=== PATIENT | female | born 1940 | race Caucasian/White ===

== ENCOUNTER 2016-10-20 11:37 | Outpatient (CLI) | payer MEDICARE, OTHER | END 2016-10-20 11:58 | LOC: D.MAMMO 11:37 | DX: Z12.31 Encounter for screening mammogram for malignant neoplasm of breast (principal) ==

== ENCOUNTER 2017-04-01 13:00 | Outpatient (CLI) | payer MEDICARE, OTHER ==
[~2017-04-01] VITALS: Ht 170.2 cm; Wt 63.6 kg
[2017-04-01 13:48] VITALS: BP 133/50; Ht 170.2 cm; Wt 63.6 kg
== END 2017-04-01 13:55 | disposition home or self-care (01) ==
LOC: D.OPS 13:00
DX: M81.0 Age-related osteoporosis without current pathological fracture (principal)

== ENCOUNTER 2017-10-15 19:50 | Emergency (ER) | payer MEDICARE, OTHER ==
[~2017-10-15] VITALS: Ht 170.2 cm; Wt 63.6 kg
[2017-10-15 19:56] VITALS: Ht 170.2 cm; Wt 63.6 kg
[2017-10-15] MEDS ORDERED: LISINOPRIL10 MG PO (20:02)
[2017-10-15] MEDS ORDERED: EPIPEN0.3 MG/0.3 IM (23:52)
[2017-10-15] MEDS ORDERED: MEDROL DOSE PACK4 MG PO (23:52)
[2017-10-16] MEDS ORDERED: DYAZIDE 37.5/251 CAP PO (01:06)
[2017-10-16 05:46] VITALS: BP 122/69
[2017-10-20] MEDS ORDERED: ASPIRIN81 MG PO (11:14)
[2017-10-20] MEDS ORDERED: PLAVIX75 MG PO (11:44)
== END 2017-10-16 05:48 | disposition home or self-care (01) ==
LOC: D.ER 19:50
DX: T78.3XXA Angioneurotic edema, initial encounter (principal)

== ENCOUNTER 2017-10-18 03:05 | Emergency (ER) | payer MEDICARE, OTHER ==
[~2017-10-18] VITALS: Ht 170.2 cm; Wt 61.4 kg
[~2017-10-18 03:05] MED LIST: DYAZIDE 37.5/251 CAP PO; EPIPEN0.3 MG/0.3 IM; LISINOPRIL10 MG PO; MEDROL DOSE PACK4 MG PO
[2017-10-18 03:14] VITALS: Ht 170.2 cm; Wt 61.4 kg
[2017-10-18 03:37] LABS: APPEARANCE CLEAR (CLEAR); BILIRUBIN NEGATIVE (NEGATIVE); COLOR YELLOW (YELLOW); GLUCOSE NEGATIVE (NEGATIVE); KETONE NEGATIVE (NEGATIVE); NITRITE NEGATIVE (NEGATIVE); PROTEIN NEGATIVE (NEGATIVE); UROBILINOGEN NORMAL (NORMAL)
[2017-10-18 03:49] LABS: BASOPHILS 0.5 % (0-2); EOSINOPHILS 4.5 % (0-7); HEMATOCRIT 33.8 % (36.0-48.0); HEMOGLOBIN 11.8 g/dL (12-16); IMMATURE GRANULOCYTES 0.2 % (0-5); MCH 32.1 pg (26.0-34.0); MCHC 34.9 g/dL (31.0-37.0); MCV 91.8 fL (80.0-100.0); MEAN PLATELET VOLUME 9.3 fL (7.4-10.4); MONOCYTES 10.5 % (2-11); NEUTROPHILS 58.3 % (40-80); PLATELET COUNT 208 10x3/uL (130-400); RBC 3.68 10x6/uL (4.00-5.40); RDW 12.4 % (11.5-14.5); WBC 5.6 10x3/uL (4.8-10.8)
[2017-10-18 04:01] LABS: ALBUMIN 3.3 g/dL (3.4-5.0); ALKALINE PHOSPHATASE 46 U/L (46-116); ALT (SGPT) 15 U/L (10-68); BILIRUBIN - TOTAL 0.49 mg/dL (0.2-1.3); CALC OSMOLALITY 257 mosm/kg (275-300); CALCIUM 8.8 mg/dL (8.5-10.1); CARBON DIOXIDE 26.9 mmol/L (21.0-32.0); CHLORIDE - SERUM 95 mmol/L (98-107); CREATININE - SERUM 0.7 mg/dL (0.6-1.3); GLUCOSE 99 mg/dL (74-106); POTASSIUM - SERUM 3.5 mmol/L (3.5-5.1); PROTEIN - SERUM 6.7 g/dL (6.4-8.2); SODIUM 129 mmol/L (136-145); UREA NITROGEN 10 mg/dL (7-18); eGFR NON AFRICAN AMERICAN 86 mL/min (90-120)
[2017-10-18 06:18] VITALS: BP 150/84
[2017-10-20] MEDS ORDERED: ASPIRIN81 MG PO (11:14)
[2017-10-20] MEDS ORDERED: PLAVIX75 MG PO (11:44)
== END 2017-10-18 06:10 | disposition home or self-care (01) ==
LOC: D.ER 03:05
PROVIDERS: Family Medicine
DX: R10.2 Pelvic and perineal pain (principal)

== ENCOUNTER 2017-10-22 09:19 | Emergency (ER) | payer MEDICARE, OTHER ==
[~2017-10-22] VITALS: Ht 170.2 cm; Wt 60.9 kg
[~2017-10-22 09:19] MED LIST changes: +ASPIRIN81 MG PO; +PLAVIX75 MG PO
[2017-10-22 09:35] VITALS: Ht 170.2 cm; Wt 60.9 kg
[2017-10-22 11:20] VITALS: BP 122/70
[2017-10-23] MEDS ORDERED: MIRALAX527 GM PO (03:14)
[2017-10-23] MEDS ORDERED: MILK OF MAGNESI30 ML PO (03:14)
== END 2017-10-22 11:26 | disposition home or self-care (01) ==
LOC: D.ER 09:19
DX: I10 Essential (primary) hypertension (principal); F41.9 Anxiety disorder, unspecified

== ENCOUNTER 2017-10-23 02:32 | Emergency (ER) | payer MEDICARE, OTHER ==
[~2017-10-23] VITALS: Ht 170.2 cm; Wt 60.9 kg
[2017-10-23 02:45] VITALS: Ht 170.2 cm; Wt 60.9 kg
[2017-10-23] MEDS ORDERED: MILK OF MAGNESI30 ML PO (03:14)
[2017-10-23] MEDS ORDERED: MIRALAX527 GM PO (03:14)
[2017-10-23 05:16] VITALS: BP 128/70
== END 2017-10-23 04:10 | disposition home or self-care (01) ==
LOC: D.ER 02:32
DX: R33.9 Retention of urine, unspecified (principal); K59.00 Constipation, unspecified

== ENCOUNTER 2017-10-27 13:57 | Emergency (ER) | payer MEDICARE, OTHER ==
[2017-10-23 02:45] VITALS: BMI 21.0
[~2017-10-27 13:57] MED LIST changes: +MILK OF MAGNESI30 ML PO; +MIRALAX527 GM PO
== END 2017-10-27 14:06 | disposition home or self-care (01) ==
LOC: OBSVTIME → D.ER 13:57 → D.EDHOLD 21:02 → OBSVTIME 21:02
DX: E87.1 Hypo-osmolality and hyponatremia (principal); R10.9 Unspecified abdominal pain

== ENCOUNTER 2017-10-27 14:58 | Inpatient (IN) | payer MEDICARE, OTHER ==
[~2017-10-27] VITALS: Ht 170.2 cm; Wt 66.4 kg
[2017-10-27 16:01] LABS: ALBUMIN 3.8 g/dL (3.4-5.0); ALKALINE PHOSPHATASE 55 U/L (46-116); ALT (SGPT) 24 U/L (10-68); BILIRUBIN - TOTAL 0.55 mg/dL (0.2-1.3); CALC OSMOLALITY 246 mosm/kg (275-300); CALCIUM 9.3 mg/dL (8.5-10.1); CARBON DIOXIDE 28.6 mmol/L (21.0-32.0); CHLORIDE - SERUM 88 mmol/L (98-107); CREATININE - SERUM 0.7 mg/dL (0.6-1.3); GLUCOSE 115 mg/dL (74-106); POTASSIUM - SERUM 4.3 mmol/L (3.5-5.1); PROTEIN - SERUM 7.6 g/dL (6.4-8.2); SODIUM 122 mmol/L (136-145); UREA NITROGEN 13 mg/dL (7-18); eGFR NON AFRICAN AMERICAN 86 mL/min (90-120)
[2017-10-27 16:02] LABS: BASOPHILS 0.5 % (0-2); EOSINOPHILS 1.7 % (0-7); HEMOGLOBIN 12.5 g/dL (12-16); IMMATURE GRANULOCYTES 0.2 % (0-5); LYMPHOCYTES 15.6 % (15-50); MCH 31.6 pg (26.0-34.0); MCHC 34.7 g/dL (31.0-37.0); MCV 91.1 fL (80.0-100.0); MEAN PLATELET VOLUME 9.5 fL (7.4-10.4); MONOCYTES 8.7 % (2-11); NEUTROPHILS 73.3 % (40-80); PLATELET COUNT 252 10x3/uL (130-400); RBC 3.95 10x6/uL (4.00-5.40); RDW 12.4 % (11.5-14.5); WBC 6.3 10x3/uL (4.8-10.8)
[2017-10-27 20:00] VITALS: BP 146/60
[2017-10-27 20:12] LABS: BASOPHILS 0.5 % (0-2); EOSINOPHILS 1.3 % (0-7); HEMOGLOBIN 11.9 g/dL (12-16); IMMATURE GRANULOCYTES 0.3 % (0-5); LYMPHOCYTES 14.8 % (15-50); MCH 31.7 pg (26.0-34.0); MCV 90.7 fL (80.0-100.0); MEAN PLATELET VOLUME 9.6 fL (7.4-10.4); MONOCYTES 7.7 % (2-11); NEUTROPHILS 75.4 % (40-80); PLATELET COUNT 212 10x3/uL (130-400); RBC 3.75 10x6/uL (4.00-5.40); RDW 12.3 % (11.5-14.5); WBC 6.2 10x3/uL (4.8-10.8)
[2017-10-27 20:38] LABS: ALBUMIN 3.5 g/dL (3.4-5.0); ALKALINE PHOSPHATASE 52 U/L (46-116); ALT (SGPT) 21 U/L (10-68); BILIRUBIN - TOTAL 0.52 mg/dL (0.2-1.3); CALC OSMOLALITY 254 mosm/kg (275-300); CALCIUM 8.3 mg/dL (8.5-10.1); CARBON DIOXIDE 25.7 mmol/L (21.0-32.0); CHLORIDE - SERUM 93 mmol/L (98-107); CREATININE - SERUM 0.7 mg/dL (0.6-1.3); GLUCOSE 114 mg/dL (74-106); PROTEIN - SERUM 6.9 g/dL (6.4-8.2); SODIUM 127 mmol/L (136-145); UREA NITROGEN 10 mg/dL (7-18); eGFR NON AFRICAN AMERICAN 86 mL/min (90-120)
[2017-10-27 20:39] LABS: POTASSIUM - SERUM 3.6 mmol/L (3.5-5.1)
[2017-10-27 20:41] LABS: TROPONIN-I < 0.017 ng/mL (0.000-0.060)
[2017-10-27 22:00] VITALS: BP 134/62
[2017-10-28] VITALS (7 sets, daily range): BP systolic 105–146; BP diastolic 42–84; Ht 170.2 cm; Wt 66.4 kg
[2017-10-28 05:11] LABS: BASOPHILS 0.5 % (0-2); EOSINOPHILS 2.7 % (0-7); HEMATOCRIT 31.6 % (36.0-48.0); HEMOGLOBIN 10.9 g/dL (12-16); IMMATURE GRANULOCYTES 0.2 % (0-5); LYMPHOCYTES 18.9 % (15-50); MCH 31.4 pg (26.0-34.0); MCHC 34.5 g/dL (31.0-37.0); MCV 91.1 fL (80.0-100.0); MEAN PLATELET VOLUME 9.3 fL (7.4-10.4); MONOCYTES 10.6 % (2-11); NEUTROPHILS 67.1 % (40-80); PLATELET COUNT 211 10x3/uL (130-400); RBC 3.47 10x6/uL (4.00-5.40); RDW 12.5 % (11.5-14.5); WBC 5.5 10x3/uL (4.8-10.8)
[2017-10-28 05:55] LABS: CALC OSMOLALITY 265 mosm/kg (275-300); CALCIUM 8.2 mg/dL (8.5-10.1); CARBON DIOXIDE 24.2 mmol/L (21.0-32.0); CHLORIDE - SERUM 103 mmol/L (98-107); CREATININE - SERUM 0.6 mg/dL (0.6-1.3); GLUCOSE 104 mg/dL (74-106); POTASSIUM - SERUM 4.1 mmol/L (3.5-5.1); SODIUM 134 mmol/L (136-145); eGFR NON AFRICAN AMERICAN > 90 mL/min (90-120)
[2017-10-28 05:56] LABS: UREA NITROGEN 7 mg/dL (7-18)
[2017-10-29 00:11] VITALS: BP 115/38
[2017-10-29 04:36] VITALS: BP 123/56
[2017-10-29 06:24] LABS: BASOPHILS 0.7 % (0-2); EOSINOPHILS 2.2 % (0-7); HEMATOCRIT 30.7 % (36.0-48.0); HEMOGLOBIN 10.2 g/dL (12-16); IMMATURE GRANULOCYTES 0.2 % (0-5); LYMPHOCYTES 18.7 % (15-50); MCHC 33.2 g/dL (31.0-37.0); MEAN PLATELET VOLUME 9.9 fL (7.4-10.4); MONOCYTES 12.3 % (2-11); NEUTROPHILS 65.9 % (40-80); PLATELET COUNT 213 10x3/uL (130-400); RBC 3.29 10x6/uL (4.00-5.40); RDW 12.6 % (11.5-14.5)
[2017-10-29 06:50] LABS: MCV 93.3 fL (80.0-100.0)
[2017-10-29 06:51] LABS: ALBUMIN 2.7 g/dL (3.4-5.0); ALKALINE PHOSPHATASE 43 U/L (46-116); ALT (SGPT) 24 U/L (10-68); BILIRUBIN - TOTAL 0.21 mg/dL (0.2-1.3); CALC OSMOLALITY 276 mosm/kg (275-300); CARBON DIOXIDE 23.3 mmol/L (21.0-32.0); CHLORIDE - SERUM 108 mmol/L (98-107); CREATININE - SERUM 0.6 mg/dL (0.6-1.3); GLUCOSE 94 mg/dL (74-106); POTASSIUM - SERUM 4.2 mmol/L (3.5-5.1); PROTEIN - SERUM 5.6 g/dL (6.4-8.2); SODIUM 139 mmol/L (136-145); eGFR NON AFRICAN AMERICAN > 90 mL/min (90-120)
[2017-10-29 06:55] LABS: UREA NITROGEN 11 mg/dL (7-18)
[2017-10-29 08:27] VITALS: BP 141/51
[2017-10-29 12:00] VITALS: BP 123/83
[2017-10-29] MEDS ORDERED: PROTONIX40 MG PO (13:40)
== END 2017-10-29 16:06 | disposition home or self-care (01) | DRG 641 ==
LOC: D.ER 14:58 → D.EDHOLD 21:02 → OBSVTIME 21:02 → D.M2 22:08
PROVIDERS: Family Medicine
DX: E87.1 Hypo-osmolality and hyponatremia (principal); I10 Essential (primary) hypertension; F41.9 Anxiety disorder, unspecified; I25.10 Atherosclerotic heart disease of native coronary artery without angina pectoris; K59.00 Constipation, unspecified; R33.9 Retention of urine, unspecified; Z95.5 Presence of coronary angioplasty implant and graft

== ENCOUNTER → 2017-11-11 16:54 | Outpatient (CLI) | payer MEDICARE, OTHER ==
[2017-10-28 12:42] VITALS: BMI 20.6
[~2017-11-11 16:54] MED LIST changes: +BUSPAR5 MG PO; +METAMUCIL1042 GM PO; +PROTONIX40 MG PO
== END | disposition home or self-care (01) ==
LOC: D.LABREF 16:54
DX: R33.8 Other retention of urine (principal); N18.6 End stage renal disease; N81.11 Cystocele, midline

== ENCOUNTER → 2017-11-18 17:55 | Outpatient (CLI) | payer MEDICARE, OTHER ==
[2017-10-28 12:42] VITALS: BMI 20.6
[2017-11-18 18:58] LABS: CALC OSMOLALITY 262 mosm/kg (275-300); CALCIUM 8.9 mg/dL (8.5-10.1); CHLORIDE - SERUM 96 mmol/L (98-107); CREATININE - SERUM 0.7 mg/dL (0.6-1.3); GLUCOSE 86 mg/dL (74-106); SODIUM 131 mmol/L (136-145); UREA NITROGEN 16 mg/dL (7-18); eGFR NON AFRICAN AMERICAN 86 mL/min (90-120)
== END | disposition home or self-care (01) ==
LOC: D.LABREF 17:55
PROVIDERS: Emergency Medicine
DX: R33.9 Retention of urine, unspecified (principal); E87.1 Hypo-osmolality and hyponatremia

== ENCOUNTER → 2017-11-22 18:18 | Outpatient (CLI) | payer MEDICARE, OTHER ==
[2017-10-28 12:42] VITALS: BMI 20.6
[2017-11-22 19:58] LABS: APPEARANCE CLEAR (CLEAR); BILIRUBIN NEGATIVE (NEGATIVE); COLOR YELLOW (YELLOW); GLUCOSE NEGATIVE (NEGATIVE); KETONE NEGATIVE (NEGATIVE); NITRITE NEGATIVE (NEGATIVE); PROTEIN NEGATIVE (NEGATIVE); UROBILINOGEN NORMAL (NORMAL)
[2017-11-22 19:59] LABS: BACTERIA FEW /hpf (NONE SEEN); EPITHELIAL CELLS OCC /hpf (0-5); RED CELLS - URINE 0-5 /hpf (0-5); WHITE CELLS - URINE 0-5 /hpf (0-5)
== END | disposition home or self-care (01) ==
LOC: D.LABREF 18:18
PROVIDERS: Urology
DX: R33.9 Retention of urine, unspecified (principal); R30.0 Dysuria

== ENCOUNTER 2017-11-24 19:12 | Emergency (ER) | payer MEDICARE, OTHER ==
[~2017-11-24] VITALS: Ht 170.2 cm; Wt 61.8 kg
[~2017-11-24 19:12] MED LIST changes: -BUSPAR5 MG PO; -METAMUCIL1042 GM PO
[2017-11-24 19:20] VITALS: Ht 170.2 cm; Wt 61.8 kg
[2017-11-24] MEDS ORDERED: BUSPAR5 MG PO (19:23)
[2017-11-24] MEDS ORDERED: METAMUCIL1042 GM PO (19:24)
[2017-11-24 19:46] LABS: BASOPHILS 0.3 % (0-2); EOSINOPHILS 0.9 % (0-7); HEMATOCRIT 33.5 % (36.0-48.0); HEMOGLOBIN 11.7 g/dL (12-16); IMMATURE GRANULOCYTES 0.2 % (0-5); LYMPHOCYTES 23.2 % (15-50); MCH 32.1 pg (26.0-34.0); MCHC 34.9 g/dL (31.0-37.0); MCV 91.8 fL (80.0-100.0); MEAN PLATELET VOLUME 9.4 fL (7.4-10.4); MONOCYTES 7.6 % (2-11); NEUTROPHILS 67.8 % (40-80); PLATELET COUNT 218 10x3/uL (130-400); RBC 3.65 10x6/uL (4.00-5.40); RDW 12.8 % (11.5-14.5); WBC 5.8 10x3/uL (4.8-10.8)
[2017-11-24 19:51] LABS: APPEARANCE CLEAR (CLEAR); BILIRUBIN NEGATIVE (NEGATIVE); COLOR YELLOW (YELLOW); GLUCOSE NEGATIVE (NEGATIVE); KETONE NEGATIVE (NEGATIVE); NITRITE NEGATIVE (NEGATIVE); PROTEIN NEGATIVE (NEGATIVE); SPECIFIC GRAVITY 1.005 (1.005-1.020); UROBILINOGEN NORMAL (NORMAL)
[2017-11-24 20:23] LABS: ALBUMIN 3.6 g/dL (3.4-5.0); ALKALINE PHOSPHATASE 50 U/L (46-116); ALT (SGPT) 27 U/L (10-68); BILIRUBIN - TOTAL 0.23 mg/dL (0.2-1.3); CALC OSMOLALITY 263 mosm/kg (275-300); CALCIUM 9.5 mg/dL (8.5-10.1); CARBON DIOXIDE 25.4 mmol/L (21.0-32.0); CHLORIDE - SERUM 97 mmol/L (98-107); CREATININE - SERUM 0.6 mg/dL (0.6-1.3); GLUCOSE 105 mg/dL (74-106); POTASSIUM - SERUM 3.4 mmol/L (3.5-5.1); PROTEIN - SERUM 6.9 g/dL (6.4-8.2); SODIUM 132 mmol/L (136-145); UREA NITROGEN 9 mg/dL (7-18); eGFR NON AFRICAN AMERICAN > 90 mL/min (90-120)
[2017-11-24 21:45] VITALS: BP 150/65
== END 2017-11-24 21:46 | disposition home or self-care (01) ==
LOC: D.ER 19:12
PROVIDERS: Emergency Medicine
DX: R53.1 Weakness (principal); E87.6 Hypokalemia; R25.2 Cramp and spasm; I10 Essential (primary) hypertension; E11.9 Type 2 diabetes mellitus without complications; Z86.79 Personal history of other diseases of the circulatory system; K21.9 Gastro-esophageal reflux disease without esophagitis

== ENCOUNTER → 2017-12-30 13:02 | Outpatient (CLI) | payer MEDICARE, OTHER ==
[~2017-12-30] VITALS: Ht 170.2 cm; Wt 61.4 kg
[~2017-12-30 13:02] MED LIST changes: +BUSPAR5 MG PO; +METAMUCIL1042 GM PO
[2017-12-30 13:40] VITALS: BP 123/56; Ht 170.2 cm; Wt 61.4 kg
== END | disposition home or self-care (01) ==
LOC: D.OPS 12-29 10:00
DX: M81.0 Age-related osteoporosis without current pathological fracture (principal); Z01.812 Encounter for preprocedural laboratory examination

== ENCOUNTER 2018-03-03 07:05 | Day surgery (SDC) | payer MEDICARE, OTHER ==
[2018-03-01 14:14] LABS: HEMATOCRIT 34.1 % (36.0-48.0); HEMOGLOBIN 11.4 g/dL (12-16); MCH 31.5 pg (26.0-34.0); MCHC 33.4 g/dL (31.0-37.0); MCV 94.2 fL (80.0-100.0); MEAN PLATELET VOLUME 9.4 fL (7.4-10.4); RBC 3.62 10x6/uL (4.00-5.40); WBC 5.7 10x3/uL (4.8-10.8)
[2018-03-01 14:28] LABS: ANION GAP 12.2 mmol/L (8-16); CALCIUM 8.5 mg/dL (8.5-10.1); CREATININE - SERUM 0.8 mg/dL (0.6-1.3); POTASSIUM - SERUM 4.2 mmol/L (3.5-5.1)
[~2018-03-03] VITALS: Ht 170.2 cm; Wt 61.7 kg
[~2018-03-03 07:05] MED LIST changes: +BACTRIM DS1 TAB PO; +MIRALAX17 GM PO; +ZANTAC300 MG PO
[2018-03-03 08:26] VITALS: BP 125/60; Ht 170.2 cm; Wt 61.7 kg
[2018-03-03 09:00] LABS: APPEARANCE CLEAR (CLEAR); BACTERIA FEW /hpf (NONE SEEN); BILIRUBIN NEGATIVE (NEGATIVE); COLOR STRAW (YELLOW); EPITHELIAL CELLS OCC /hpf (0-5); GLUCOSE NEGATIVE (NEGATIVE); KETONE NEGATIVE (NEGATIVE); NITRITE NEGATIVE (NEGATIVE); PROTEIN NEGATIVE (NEGATIVE); RED CELLS - URINE OCC /hpf (0-5); UROBILINOGEN NORMAL (NORMAL)
[2018-04-04] MEDS ORDERED: CIPRO250 MG PO (10:22)
== END 2018-03-03 10:30 | disposition home or self-care (01) ==
LOC: D.OPS 07:05 → D.PAN 09:35 → D.OPS 10:00
PROVIDERS: Anesthesiology; Urology
DX: Z53.09 Procedure and treatment not carried out because of other contraindication (principal); Z01.812 Encounter for preprocedural laboratory examination

== ENCOUNTER → 2018-03-09 15:05 | Outpatient (CLI) | payer MEDICARE, OTHER ==
[2018-03-03 08:26] VITALS: BMI 21.3
[~2018-03-09 15:05] MED LIST changes: +CIPRO250 MG PO
[2018-03-09 16:05] LABS: APPEARANCE CLEAR (CLEAR); BILIRUBIN NEGATIVE (NEGATIVE); COLOR YELLOW (YELLOW); GLUCOSE NEGATIVE (NEGATIVE); KETONE NEGATIVE (NEGATIVE); NITRITE NEGATIVE (NEGATIVE); PROTEIN NEGATIVE (NEGATIVE); UROBILINOGEN NORMAL (NORMAL)
== END | disposition home or self-care (01) ==
LOC: D.LABREF 15:05
PROVIDERS: Urology
DX: R33.8 Other retention of urine (principal); Z46.6 Encounter for fitting and adjustment of urinary device; Z87.440 Personal history of urinary (tract) infections

== ENCOUNTER → 2018-03-28 18:40 | Outpatient (CLI) | payer MEDICARE, OTHER ==
[2018-03-03 08:26] VITALS: BMI 21.3
[~2018-03-28 18:40] MED LIST changes: +NORCO 7.5/325 T1 TA1 PO
[2018-03-28 20:45] LABS: APPEARANCE CLEAR (CLEAR); BILIRUBIN NEGATIVE (NEGATIVE); COLOR STRAW (YELLOW); GLUCOSE NEGATIVE (NEGATIVE); KETONE NEGATIVE (NEGATIVE); NITRITE NEGATIVE (NEGATIVE); PROTEIN NEGATIVE (NEGATIVE); SPECIFIC GRAVITY 1.005 (1.005-1.020); UROBILINOGEN NORMAL (NORMAL)
[2018-03-28 20:46] LABS: RED CELLS - URINE 0-5 /hpf (0-5)
[2018-03-28 20:47] LABS: BACTERIA FEW /hpf (NONE SEEN); EPITHELIAL CELLS 0-5 /hpf (0-5)
== END | disposition home or self-care (01) ==
LOC: D.LABREF 18:40
PROVIDERS: Urology
DX: N39.0 Urinary tract infection, site not specified (principal)

== ENCOUNTER 2018-04-05 06:00 | Day surgery (SDC) | payer MEDICARE, OTHER ==
[2018-04-04 10:09] LABS: HEMOGLOBIN 11.9 g/dL (12-16); MCH 31.3 pg (26.0-34.0); MCHC 33.1 g/dL (31.0-37.0); MCV 94.7 fL (80.0-100.0); MEAN PLATELET VOLUME 9.7 fL (7.4-10.4); RBC 3.8 10x6/uL (4.00-5.40); WBC 4.4 10x3/uL (4.8-10.8)
[2018-04-05 09:07] LABS: CALC OSMOLALITY 268 mosm/kg (275-300); CALCIUM 8.6 mg/dL (8.5-10.1); CARBON DIOXIDE 24.4 mmol/L (21.0-32.0); CHLORIDE - SERUM 100 mmol/L (98-107); CREATININE - SERUM 0.5 mg/dL (0.6-1.3); GLUCOSE 102 mg/dL (74-106); POTASSIUM - SERUM 3.8 mmol/L (3.5-5.1); SODIUM 135 mmol/L (136-145); UREA NITROGEN 9 mg/dL (7-18); eGFR NON AFRICAN AMERICAN > 90 mL/min (90-120)
[2018-04-06 10:06] LABS: CALCIUM 7.7 mg/dL (8.5-10.1); CARBON DIOXIDE 26.1 mmol/L (21.0-32.0)
[2018-04-06 10:13] LABS: ANION GAP 11.9 mmol/L (8-16); CREATININE - SERUM 0.9 mg/dL (0.6-1.3)
[2018-04-07 09:45] LABS: CARBON DIOXIDE 24.6 mmol/L (21.0-32.0); CHLORIDE - SERUM 103 mmol/L (98-107); GLUCOSE 129 mg/dL (74-106); POTASSIUM - SERUM 3.4 mmol/L (3.5-5.1); SODIUM 138 mmol/L (136-145)
[2018-04-07 09:48] LABS: CALC OSMOLALITY 274 mosm/kg (275-300); CREATININE - SERUM 0.6 mg/dL (0.6-1.3); UREA NITROGEN 5 mg/dL (7-18); eGFR NON AFRICAN AMERICAN > 90 mL/min (90-120)
== END 2018-04-07 16:56 | disposition home or self-care (01) ==
LOC: D.OPS 06:00 → D.MS 17:31 → D.SDCHOLD 04-06 09:52 → D.MS 04-06 09:55
PROVIDERS: Anesthesiology; Urology
DX: N81.10 Cystocele, unspecified (principal); N81.6 Rectocele; R33.9 Retention of urine, unspecified; E87.1 Hypo-osmolality and hyponatremia

== ENCOUNTER 2018-04-08 16:21 | Emergency (ER) | payer MEDICARE, OTHER ==
[~2018-04-08] VITALS: Ht 170.2 cm; Wt 61.4 kg
[2018-04-08 16:23] VITALS: Ht 170.2 cm; Wt 61.4 kg
[2018-04-08 17:40] LABS: CALC OSMOLALITY 253 mosm/kg (275-300); CALCIUM 8.6 mg/dL (8.5-10.1); CARBON DIOXIDE 28.8 mmol/L (21.0-32.0); CHLORIDE - SERUM 95 mmol/L (98-107); CREATININE - SERUM 0.5 mg/dL (0.6-1.3); GLUCOSE 105 mg/dL (74-106); SODIUM 127 mmol/L (136-145); eGFR NON AFRICAN AMERICAN > 90 mL/min (90-120)
[2018-04-08 17:55] LABS: APPEARANCE CLEAR (CLEAR); BILIRUBIN NEGATIVE (NEGATIVE); COLOR YELLOW (YELLOW); GLUCOSE NEGATIVE (NEGATIVE); KETONE NEGATIVE (NEGATIVE); NITRITE NEGATIVE (NEGATIVE); PROTEIN NEGATIVE (NEGATIVE); UROBILINOGEN NORMAL (NORMAL)
[2018-04-08 17:56] LABS: BACTERIA FEW /hpf (NONE SEEN); RED CELLS - URINE OCC /hpf (0-5); WHITE CELLS - URINE OCC /hpf (0-5)
[2018-04-08 17:59] LABS: UREA NITROGEN 11 mg/dL (7-18)
[2018-04-08] MEDS ORDERED: MACROBID100 MG PO (18:51)
[2018-04-08 19:30] VITALS: BP 138/70
== END 2018-04-08 19:30 | disposition home or self-care (01) ==
LOC: D.ER 16:21
PROVIDERS: Emergency Medicine
DX: E86.0 Dehydration (principal); K59.00 Constipation, unspecified; N39.0 Urinary tract infection, site not specified

== ENCOUNTER 2018-04-20 17:23 | Inpatient (IN) | payer MEDICARE, OTHER ==
[~2018-04-20] VITALS: Ht 170.2 cm; Wt 60.9 kg
--- NOTE | ~2018-04-20 | MORECARE ---
CASE MANAGEMENT DISCHARGE SUMMARY PATIENT: AMANDO MURPHY UNIT: [id number] ADM DATE: 04/21/18 AGE: 77 : 40 SEX: F ROOM/BED: D.7543 AUTHOR: JAMES MADRID PHYSICIAN: REFERRING PHYSICIAN: DUSTY AVILA MD DATE OF SERVICE: 04/22/18 Discharge Plan Patient Name: AMANDO MURPHY Facility: [facility]:[place] : 1940 Planned Disposition: Home with Home Health Anticipated Discharge Date: 04/22/18 Discharge Date: Expected LOS: 1 Initial Reviewer: [email or web address] Initial Review Date: 04/22/2018 Generated: 04/22/18 3:51 pm Comments DCP- Discharge Planning Updated by [email or web address]: Moriah Mohamud on 04/22/18 1:[address] Patient Name: AMANDO MURPHY Admission Status: ER Accout number: [id number] Admission Date: 04-21-2018 : 1940 Admission Diagnosis:OTHER CONSTIPATION Attending: DUSTY AVILA Current LOS: 1 Anticipated DC Date: 04-22-2018 Planned Disposition: Home with Home Health Primary Insurance: MEDICARE A & B Discharge Planning Comments: CM MET WITH PATIENT ABOUT DC PLANNING/NEEDS. STATES COUSIN IS COMING TO CARPET LOOM [employer] AND TAKE HOME. [facility] CALLED AND PATIENT WILL RESUME CARE WITH THEM. PATIENT ALSO HAS A CAREGIVER THROUGH [facility], PHONE NUMBER [phone]. CM WILL FOLLOW AND ASSIST NEEDED WITH DC PLANNING/NEEDS. Human Resource Statistician: Moriah Mohamud DCPIA - Discharge Planning Initial Assessment Updated by [id number]: Moriah Mohamud on 04/22/18 2:49 pm * Is the patient Alert and Oriented? Yes * PCP ZAVALA * Pharmacy [facility] [address] * Preadmission Environment Home Alone * ADLs Independent * Equipment None * Community resources currently utilized Home Health * Please name any agencies selected above. [facility] * Additional services required to return to the preadmission environment? No * Can the patient safely return to the preadmission environment? Yes * Has this patient been hospitalized within the prior 30 days at any hospital? No Patient Name: AMANDO MURPHY Page 35516 at 1452 All edits/amendments must be made on the electronic document DICTATION DATE: 04/22/181450 SIDE SEAM ENVELOPE MACHINE OPERATOR: FAYE 04/22/181450 RPT#: [id number] DC DATE: STATUS: ADM IN [facility] [address] [place] [address] END OF REPORT
--- NOTE | ~2018-04-20 | MORECARE ---
CASE MANAGEMENT DISCHARGE SUMMARY PATIENT: AMANDO MURPHY UNIT: [id number] ADM DATE: 04/21/18 AGE: 77 : 40 SEX: F ROOM/BED: D.2874 AUTHOR: JAMES MADRID PHYSICIAN: REFERRING PHYSICIAN: DUSTY AVILA MD DATE OF SERVICE: 04/22/18 Discharge Plan Patient Name: AMANDO MURPHY Facility: [facility]:[place] : 1940 Planned Disposition: Home with Home Health Anticipated Discharge Date: 04/22/18 Discharge Date: Expected LOS: 1 Initial Reviewer: [email or web address] Initial Review Date: 04/22/2018 Generated: 04/22/18 4:00 pm Comments DCP- Discharge Planning Updated by [email or web address]: Moriah Mohaumd on 04/22/18 1:[address] Patient Name: AMANDO MURPHY Admission Status: ER Accout number: [id number] Admission Date: 04-21-2018 : 1940 Admission Diagnosis:OTHER CONSTIPATION Attending: DUSTY AVILA Current LOS: 1 Anticipated DC Date: 04-22-2018 Planned Disposition: Home with Home Health Primary Insurance: MEDICARE A & B Discharge Planning Comments: CM MET WITH PATIENT ABOUT DC PLANNING/NEEDS. STATES COUSIN IS COMING TO [employer] DEPUTY CLERK AND TAKE HOME. [facility] CALLED AND PATIENT WILL RESUME CARE WITH THEM. PATIENT ALSO HAS A CAREGIVER THROUGH [facility], PHONE NUMBER [phone]. CM WILL FOLLOW AND ASSIST NEEDED WITH DC PLANNING/NEEDS. Distribution Supervisor: Moriah Mohamud DCPIA - Discharge Planning Initial Assessment Updated by [email or web address]: Moriah Mohamud on 04/22/18 2:49 pm * Is the patient Alert and Oriented? Yes * PCP ZAVALA * Pharmacy [facility] [address] * Preadmission Environment Home Alone * ADLs Independent * Equipment None * Community resources currently utilized Home Health * Please name any agencies selected above. [facility] * Additional services required to return to the preadmission environment? No * Can the patient safely return to the preadmission environment? Yes * Has this patient been hospitalized within the prior 30 days at any hospital? No Patient Name: AMANDO MURPHY Page [phone] at 1500 All edits/amendments must be made on the electronic document DICTATION DATE: 04/22/181458 BRANCH OPERATIONS MANAGER: FAYE 04/22/181458 RPT#: [id number] DC DATE: STATUS: ADM IN [facility] [address] [place] [address] END OF REPORT
--- NOTE | ~2018-04-20 | MORECARE ---
CASE MANAGEMENT DISCHARGE SUMMARY PATIENT: AMANDO MURPHY UNIT: [id number] ADM DATE: 04/21/18 AGE: 77 : 40 SEX: F ROOM/BED: D.3299 AUTHOR: JULIUS,DOC PHYSICIAN: REFERRING PHYSICIAN: DUSTY AVILA MD DATE OF SERVICE: 04/25/18 Discharge Plan Patient Name: AMANDO MURHPY Facility: [facility]:[place] : 1940 Planned Disposition: Home with Home Health Anticipated Discharge Date: 04/22/18 Discharge Date: 04/22/2018 Expected LOS: 1 Initial Reviewer: [email or web address] Initial Review Date: 04/22/2018 Generated: 04/25/18 12:50 pm Comments DCP- Discharge Planning Updated by [email or web address]: Moriah Mohamud on 04/22/18 1:[address] Patient Name: AMANDO MURPHY Admission Status: ER Accout number: [id number] Admission Date: 04-21-2018 : 1940 Admission Diagnosis:OTHER CONSTIPATION Attending: DUSTY AVILA Current LOS: 1 Anticipated DC Date: 04-22-2018 Planned Disposition: Home with Home Health Primary Insurance: MEDICARE A & B Discharge Planning Comments: CM MET WITH PATIENT ABOUT DC PLANNING/NEEDS. STATES COUSIN IS COMING TO EXEC. CREATIVE DIRECTOR AND TAKE HOME. [facility] CALLED AND PATIENT WILL RESUME CARE WITH THEM. PATIENT ALSO HAS A CAREGIVER THROUGH [facility], PHONE NUMBER [phone]. CM WILL FOLLOW AND ASSIST NEEDED WITH DC PLANNING/NEEDS. Machine Assembler: Moriah Mohamud DCPIA - Discharge Planning Initial Assessment Updated by [email or web address]: Moriah Mohamud on 04/22/18 2:49 pm * Is the patient Alert and Oriented? Yes * PCP ZAVALA * Pharmacy [facility] [address] * Preadmission Environment Home Alone * ADLs Independent * Equipment None * Community resources currently utilized Home Health * Please name any agencies selected above. [facility] * Additional services required to return to the preadmission environment? No * Can the patient safely return to the preadmission environment? Yes * Has this patient been hospitalized within the prior 30 days at any hospital? No Last DP export: 04/22/18 2:09 Patient Name: AMANDO MURPHY Page [phone] at 1150 All edits/amendments must be made on the electronic document DICTATION DATE: 04/25/181148 ELECTRONIC PAGINATION SYSTEM OPERATOR: FAYE 04/25/181148 RPT#: [id number] DC DATE:04/22/18 STATUS: DIS IN [facility] [address] [place] [address] END OF REPORT
--- NOTE | ~2018-04-20 | MORECARE ---
CASE MANAGEMENT DISCHARGE SUMMARY PATIENT: AMANDO MURPHY UNIT: [id number] ADM DATE: 04/21/18 AGE: 77 : 40 SEX: F ROOM/BED: D.5970 AUTHOR: JULIUS,DOC PHYSICIAN: REFERRING PHYSICIAN: DUSTY AVILA MD DATE OF SERVICE: 04/22/18 Discharge Plan Patient Name: AMANDO MURPHY Facility: [facility]:[place] : 1940 Planned Disposition: Home with Home Health Anticipated Discharge Date: 04/22/18 Discharge Date: Expected LOS: 1 Initial Reviewer: [email or web address] Initial Review Date: 04/22/2018 Generated: 04/22/18 4:08 pm Comments DCP- Discharge Planning Updated by [email or web address]: Moriah Mohamud on 04/22/18 1:[address] Patient Name: AMANDO MURPHY Admission Status: ER Accout number: [id number] Admission Date: 04-21-2018 : 1940 Admission Diagnosis:OTHER CONSTIPATION Attending: DUSTY AVILA Current LOS: 1 Anticipated DC Date: 04-22-2018 Planned Disposition: Home with Home Health Primary Insurance: MEDICARE A & B Discharge Planning Comments: CM MET WITH PATIENT ABOUT DC PLANNING/NEEDS. STATES COUSIN IS COMING TO PROBATION SUPERVISOR AND TAKE HOME. [facility] CALLED AND PATIENT WILL RESUME CARE WITH THEM. PATIENT ALSO HAS A CAREGIVER THROUGH [facility], PHONE NUMBER [phone]. CM WILL FOLLOW AND ASSIST NEEDED WITH DC PLANNING/NEEDS. Biomass Facilitator: Moriah Mohamud DCPIA - Discharge Planning Initial Assessment Updated by [email or web address]: Moriah Mohamud on 04/22/18 2:49 pm * Is the patient Alert and Oriented? Yes * PCP SALLY * Pharmacy [facility] [address] * Preadmission Environment Home Alone * ADLs Independent * Equipment None * Community resources currently utilized Home Health * Please name any agencies selected above. [facility] * Additional services required to return to the preadmission environment? No * Can the patient safely return to the preadmission environment? Yes * Has this patient been hospitalized within the prior 30 days at any hospital? No External Providers [facility] Next Contact Date: Service Request Date: Service Type: Resolution: Reviewer: Comments: Last DP export: 04/22/18 2:00 Patient Name: AMANDO MURPHY Page 87602 at 1509 All edits/amendments must be made on the electronic document DICTATION DATE: 04/22/181507 EVENT SPECIALIST FOOD DEMONSTRATOR: FAYE 04/22/181507 RPT#: [id number] DC DATE: STATUS: ADM IN [facility] [address] [place] [address] END OF REPORT
[~2018-04-20 17:23] MED LIST changes: +MACROBID100 MG PO
[2018-04-20 18:15] LABS: APPEARANCE CLEAR (CLEAR); BILIRUBIN NEGATIVE (NEGATIVE); COLOR YELLOW (YELLOW); GLUCOSE NEGATIVE (NEGATIVE); KETONE NEGATIVE (NEGATIVE); NITRITE NEGATIVE (NEGATIVE); PROTEIN NEGATIVE (NEGATIVE); UROBILINOGEN NORMAL (NORMAL)
[2018-04-20 18:17] LABS: BACTERIA FEW /hpf (NONE SEEN); RED CELLS - URINE 0-5 /hpf (0-5); WHITE CELLS - URINE OCC /hpf (0-5)
[2018-04-20 18:29] LABS: BASOPHILS 0.7 % (0-2); EOSINOPHILS 2.6 % (0-7); HEMATOCRIT 29.8 % (36.0-48.0); HEMOGLOBIN 10.1 g/dL (12-16); IMMATURE GRANULOCYTES 0.4 % (0-5); LYMPHOCYTES 20.2 % (15-50); MCH 31.9 pg (26.0-34.0); MCHC 33.9 g/dL (31.0-37.0); MEAN PLATELET VOLUME 9.3 fL (7.4-10.4); MONOCYTES 7.9 % (2-11); NEUTROPHILS 68.2 % (40-80); RBC 3.17 10x6/uL (4.00-5.40); RDW 13.3 % (11.5-14.5); WBC 7.2 10x3/uL (4.8-10.8)
[2018-04-20 18:39] LABS: PLATELET COUNT 283 10x3/uL (130-400)
[2018-04-20 18:46] LABS: ALBUMIN 2.9 g/dL (3.4-5.0); ALKALINE PHOSPHATASE 56 U/L (46-116); ALT (SGPT) 20 U/L (10-68); BILIRUBIN - TOTAL 0.32 mg/dL (0.2-1.3); CALC OSMOLALITY 265 mosm/kg (275-300); CALCIUM 8.8 mg/dL (8.5-10.1); CARBON DIOXIDE 21.4 mmol/L (21.0-32.0); CHLORIDE - SERUM 100 mmol/L (98-107); CREATININE - SERUM 0.7 mg/dL (0.6-1.3); GLUCOSE 106 mg/dL (74-106); PROTEIN - SERUM 6.5 g/dL (6.4-8.2); SODIUM 133 mmol/L (136-145); UREA NITROGEN 13 mg/dL (7-18); eGFR NON AFRICAN AMERICAN 86 mL/min (90-120)
[2018-04-20 23:47] VITALS: BP 143/74
[2018-04-21] VITALS: BP 144/60
[2018-04-21 01:35] VITALS: BP 144/60; BMI 20.8
[2018-04-21 04:56] VITALS: BP 111/49
[2018-04-21 05:59] LABS: EOSINOPHILS 5.4 % (0-7); HEMATOCRIT 30.5 % (36.0-48.0); HEMOGLOBIN 10.1 g/dL (12-16); IMMATURE GRANULOCYTES 0.2 % (0-5); LYMPHOCYTES 20.3 % (15-50); MCHC 33.1 g/dL (31.0-37.0); MCV 93.6 fL (80.0-100.0); MEAN PLATELET VOLUME 9.7 fL (7.4-10.4); MONOCYTES 11.9 % (2-11); NEUTROPHILS 61.2 % (40-80); PLATELET COUNT 297 10x3/uL (130-400); RBC 3.26 10x6/uL (4.00-5.40); RDW 13.3 % (11.5-14.5)
[2018-04-21 06:24] LABS: WBC 4.8 10x3/uL (4.8-10.8)
[2018-04-21 06:25] LABS: ALBUMIN 2.9 g/dL (3.4-5.0); ALKALINE PHOSPHATASE 60 U/L (46-116); ALT (SGPT) 23 U/L (10-68); BILIRUBIN - TOTAL 0.31 mg/dL (0.2-1.3); CALCIUM 8.6 mg/dL (8.5-10.1); CARBON DIOXIDE 23.4 mmol/L (21.0-32.0); CHLORIDE - SERUM 105 mmol/L (98-107); GLUCOSE 99 mg/dL (74-106); MAGNESIUM - SERUM 2.1 mg/dL (1.8-2.4); PHOSPHOROUS 3.3 mg/dL (2.5-4.9); POTASSIUM - SERUM 3.9 mmol/L (3.5-5.1); PROTEIN - SERUM 6.5 g/dL (6.4-8.2); SODIUM 138 mmol/L (136-145)
[2018-04-21 06:29] LABS: CALC OSMOLALITY 274 mosm/kg (275-300); CREATININE - SERUM 0.5 mg/dL (0.6-1.3); UREA NITROGEN 9 mg/dL (7-18); eGFR NON AFRICAN AMERICAN > 90 mL/min (90-120)
[2018-04-21 11:26] LABS: % SATURATION 23 % (15-55); IRON 57 ug/dl (35-150); TOTAL IRON BIND CAPACITY 238 ug/dl (260-445); UNSAT IRON BIND CAPACITY 181 ug/dl (150-375)
[2018-04-21 12:43] VITALS: BP 142/68
[2018-04-21 13:08] VITALS: Ht 170.2 cm; Wt 60.9 kg
[2018-04-21 16:48] VITALS: BP 134/70
[2018-04-21 20:37] VITALS: BP 118/44
[2018-04-22 00:07] VITALS: BP 132/41
[2018-04-22 04:50] VITALS: BP 131/51
[2018-04-22 06:32] LABS: BASOPHILS 0.7 % (0-2); EOSINOPHILS 4.2 % (0-7); HEMATOCRIT 29.7 % (36.0-48.0); HEMOGLOBIN 9.8 g/dL (12-16); IMMATURE GRANULOCYTES 0.3 % (0-5); LYMPHOCYTES 18.7 % (15-50); MCH 31.1 pg (26.0-34.0); MCV 94.3 fL (80.0-100.0); MEAN PLATELET VOLUME 9.9 fL (7.4-10.4); MONOCYTES 8.7 % (2-11); NEUTROPHILS 67.4 % (40-80); PLATELET COUNT 297 10x3/uL (130-400); RBC 3.15 10x6/uL (4.00-5.40); RDW 13.5 % (11.5-14.5)
[2018-04-22 06:45] LABS: CALC OSMOLALITY 271 mosm/kg (275-300); CALCIUM 8.4 mg/dL (8.5-10.1); CARBON DIOXIDE 22.4 mmol/L (21.0-32.0); CHLORIDE - SERUM 105 mmol/L (98-107); CREATININE - SERUM 0.6 mg/dL (0.6-1.3); GLUCOSE 99 mg/dL (74-106); POTASSIUM - SERUM 3.7 mmol/L (3.5-5.1); SODIUM 137 mmol/L (136-145); UREA NITROGEN 8 mg/dL (7-18); eGFR NON AFRICAN AMERICAN > 90 mL/min (90-120)
[2018-04-22 09:03] VITALS: BP 139/50
[2018-04-22 09:17] LABS: FOLATE (FOLIC ACID) - SERUM 11.7 ng/mL (>3.0)
[2018-04-22 12:12] VITALS: BP 140/55
[2018-04-22] MEDS ORDERED: MILK OF MAGNESI30 ML PO (12:27)
[2018-04-22] MEDS ORDERED: COLACE100 MG PO (12:27)
[2018-04-22] MEDS ORDERED: PROTONIX40 MG PO (12:27)
== END 2018-04-22 17:38 | disposition home health service (06) | DRG 392 ==
LOC: D.ER 17:23 → D.EDHOLD 22:09 → OBSVTIME 22:09 → D.M2 22:09
PROVIDERS: Family Medicine; Internal Medicine Nephrology
DX: K59.09 Other constipation (principal); E87.1 Hypo-osmolality and hyponatremia; R32 Unspecified urinary incontinence; I25.10 Atherosclerotic heart disease of native coronary artery without angina pectoris; D64.9 Anemia, unspecified; F41.9 Anxiety disorder, unspecified; M81.0 Age-related osteoporosis without current pathological fracture; K21.9 Gastro-esophageal reflux disease without esophagitis; R54 Age-related physical debility

== ENCOUNTER → 2018-05-16 18:22 | Outpatient (CLI) | payer MEDICARE, OTHER ==
[2018-04-21 13:08] VITALS: BMI 20.8
[~2018-05-16 18:22] MED LIST changes: +COLACE100 MG PO
== END | disposition home or self-care (01) ==
LOC: D.LABREF 18:22
DX: N39.0 Urinary tract infection, site not specified (principal)

== ENCOUNTER 2018-06-16 06:35 | Day surgery (SDC) | payer MEDICARE, OTHER ==
[2018-06-14 09:43] LABS: HEMATOCRIT 34.1 % (36.0-48.0); HEMOGLOBIN 11.3 g/dL (12-16); MCH 31.1 pg (26.0-34.0); MCHC 33.1 g/dL (31.0-37.0); MCV 93.9 fL (80.0-100.0); MEAN PLATELET VOLUME 9.7 fL (7.4-10.4); RBC 3.63 10x6/uL (4.00-5.40); RDW 13.8 % (11.5-14.5); WBC 5.2 10x3/uL (4.8-10.8)
[~2018-06-16] VITALS: Ht 170.2 cm; Wt 61.2 kg
[2018-06-16 07:10] VITALS: BP 141/62; Ht 170.2 cm; Wt 61.2 kg
--- NOTE | 2018-06-16 10:15 | NUR ---
REC'D FROM [facility]. NO ONE AT BEDSIDE. FL TRAY BROUGHT TO PT. PT RAMBLES AND DOES NOT APPEAR TO COMPREHEND SIMPLE INSTRUCTIONS.
--- NOTE | 2018-06-16 10:45 | NUR ---
ASSISTED UP TO BATHROOM AND WAS INCONTINENT OF AN EXTREMELY LARGE AMOUNT OF URINE. URINATED IN THE FLOOR AND HAD TO BE CLEANED WITH GOWN AND LINEN CHANGE. CAREGIVER/FRIEND AT BEDSIDE. TOLERATED FL TRAY.
--- NOTE | 2018-06-16 11:35 | NUR ---
IV DC'D WITH CATHETER INTACT. RELATES SHE KNOWS ABSOLUTELY NOTHING ABOUT THE USE OF THE SACRAL STIMULATOR ALTHOUGH MARYANNE THE VENDING MACHINE COLLECTOR FOR THE DEVICE EXPLAINED TO HER THE USE. RELATED WOULD CHECK AND SEE IF HE IS STILL HERE AND IF SO WILL HAVE HIM COME BACK AND TALK WITH HER AND HER CAREGIVER/FRIEND.
--- NOTE | 2018-06-16 11:40 | NUR ---
CALLED SURGERY AND MARYANNE WILL COME TALK WITH THEM WHEN THE CASE IS FINISHED THAT HE IS CURRENTLY IN.
--- NOTE | 2018-06-16 11:45 | NUR ---
WRITTEN AND VERBAL DC INST GIVEN TO PT AND CAREGIVER. VERBALIZED UNDERSTANDING. MARYANNE CAME IN TO TALK AND EXPLAIN USE OF STIMULATOR TO PT AND FRIEND.
--- NOTE | 2018-06-16 12:05 | NUR ---
DC'D HOME WITH CAREGIVER/FRIEND VIA PRIVATE VEHICLE. TAKEN TO VEHICLE VIA WC. STABLE AT TIME OF DC.
--- NOTE | 2018-06-16 12:41 | OP ---
PATIENT NAME: AMANDO MURPHY MEDICAL RECORD: [id number] :[birth year] LOCATION:[facility] AD[facility]ION DATE: SURGEON: ALEIDA CEBALLOS MD DATE OF OPERATION: 06/16/2018 SURGEON: Aleida Ceballos MD ANESTHESIA: TIVA by America Duff CRNA DIAGNOSIS: Chronic urinary retention. PROCEDURE: InterStim stage I, right S3 foramen. FINDINGS: Good dayan and toe flexion response on the right S3 foramen. The patient felt the stimulation in the vaginal area. ESTIMATED BLOOD LOSS: None. 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 I had her go to [place] to have urodynamics done. This showed some detrusor contractions up to 23 cm of water. There appeared to be some bladder outlet obstruction. She had a grade II cystocele, which I thought might be causing the bladder outlet obstruction from kinking the urethra. She had a cystocele repair with fascia and rectocele repair on 04/05/2018. She was still unable to void spontaneously. She is unable to learn how to perform self intermittent catheterization. Thus, she has had an indwelling Aguilar catheter for some time. She now comes to have a trial of InterStim to see if the bladder pacemaker can get her voiding spontaneously again. SHE IS ALLERGIC TO BACTRIM, LISINOPRIL, MACROBID, PREDNISONE, OXYBUTYNIN, POLYSPORIN, LOSARTAN, NICKEL, AND PROTONIX. She was given Ancef on-call to the OR. DESCRIPTION OF PROCEDURE: The patient was given IV sedation in the prone position. She was then prepped and draped. Under fluoroscopy, we identified the level of the S3 sacral foramen. The role of sacral foramina were also marked out on the skin level using skin marker and using fluoroscopy and needles to find the exact lot locations. At the level of the S2 foramen, the skin was infiltrated with local anesthetic. The spinal needles were then inserted, angling to enter into the S3 foramen. We entered into the S3 foramen on both sides as checked by a lateral view on the fluoroscopy. We then tested both the needles. The response on the right side was significantly stronger. The patient required much lower voltages in order to have reflex contractions for dyaan and great toe flexion responses. Also, when questioned, the patient said that she felt the stimulation in the vaginal area on the right S3 foramen, but she felt nothing from the left S3 foramen. Therefore, the needle in the left S3 foramen was removed. We focused on the right S3 foramen. A small incision was made on either side of the spinal needle. The stylet of the spinal needle was then removed. Into the lumen of the spinal needle, we started the extra long stylet. Once this extra long stylet was in place, the spinal needle was removed entirely. Over the extra long stylet, we placed the trocar dilator. There was a radiopaque marker to designate the tip of the dilator sheath. This was placed at about the mid level between the sacral bony table. The extra long stylet and the trocar were then removed, leaving the sheath in place. Down the sheath, we inserted a 4-channel curved tip electrode. This was placed so that channels 2 and 3 were within the sacral foraminal canal. The other 2 channels were deep to the bone. The curve was made so that the curve extended from OPERATIVE REPORT [id number] AMANDO MURPHY medial to lateral. Position was confirmed by fluoroscopy. The stiffening wire on the lead was then removed. Each of the channels was tested again and each of them had good response. Actually, channels 2 and 3 had the best response and there was fairly minimal response to channel 0 and 1. At this point, we made a 1-inch incision in the right iliac crest region. This was bluntly dissected using the finger down to the gluteal fascia. A tunneling device was used to bring the permanent electrode into this iliac crest region incision. Here, we will make the connection to the temporary test electrode. The temporary test electrode was connected to the permanent electrode and the connection tied down by tightening down 4 locking screws with a torque-limiting screwdriver. A silicone sheath was placed around the connection and the ends of the sheath were tied using 2-0 Prolene ties. This will keep the connection watertight. The tunneling device was then used again to bring the temporary automation test engineer out through the sake through the presacral area just to the left of the midline. The temporary automation test engineer was then brought through the tunneling sheath and brought out of the skin in this area. The sheath was removed entirely. The wounds were irrigated out using normal saline. Vicryl 3-0 simple interrupted sutures were used to bring the subcutaneous fat together in the right iliac crest lead incision site. [place] were then applied and then dressings were applied to this. The patient had her Aguilar catheter removed for a voiding trial today. If she is unable to void today, we will reinsert a Aguilar catheter and have her come back to the office tomorrow to have the Aguilar catheter removed for another voiding trial. TRANSINT:[id number] Voice Confirmation ID: [id number] DOCUMENT ID: [id number] ALEIDA CEBALLOS MD at 1241 CC: [id number] DICTATION DATE: 06/16/18 1018 CLOTH DOUBLING MACHINE OPERATOR: 06/16/18 1228 [address] [place] [id number] [place] [id number]
== END 2018-06-16 12:05 | disposition home or self-care (01) ==
LOC: D.OPS 06:35 → D.PAN 08:30 → D.OPS 08:30
PROVIDERS: Anesthesiology
DX: R33.9 Retention of urine, unspecified (principal)

== ENCOUNTER 2018-07-05 05:37 | Day surgery (SDC) | payer MEDICARE, OTHER ==
--- NOTE | 2018-07-04 15:45 | NUR ---
PATIENT STATES SHE CALLED DR. CEBALLOS'S OFFICE TODAY TO DISCUSS RECTAL/ANAL "COMING OUT".
[~2018-07-05] VITALS: Ht 170.2 cm; Wt 61.2 kg
[~2018-07-05 05:37] MED LIST changes: +CRANBERRY AZO; +NASONEX NASAL S17 GM NS
[2018-07-05 06:06] LABS: HEMATOCRIT 36.1 % (36.0-48.0); HEMOGLOBIN 11.9 g/dL (12-16); RBC 3.84 10x6/uL (4.00-5.40)
[2018-07-05 07:05] VITALS: BP 119/61; Ht 170.2 cm; Wt 61.2 kg
--- NOTE | 2018-07-05 07:26 | NUR ---
0630 PT REQUESTS NO ORAL MEDS RELATED TO NO REIMBURSMENT BY MEDICARE FOR ORAL MEDS. Fer DIEGO R.N.
--- NOTE | 2018-07-05 10:07 | OP ---
PATIENT NAME: AMANDO MURPHY MEDICAL RECORD: [id number] :40 [facility] AD[facility] DATE: SURGEON: ALEIDA CEBALLOS MD DATE OF OPERATION: 07/05/2018 SURGEON: Aleida Ceballos MD ANESTHESIA: TIVA by Josh Ramon CRNA. DIAGNOSIS: Idiopathic urinary retention. PROCEDURE: InterStim stage II in the right iliac crest region. FINDINGS: Intact skin incisions with no signs of infection. On rectal exam, hemorrhoids are present, rectocele repair is intact. BLOOD LOSS: Minimal. CLINICAL HISTORY: This is a 78-year-old female, who has idiopathic urinary retention. I sent her to urodynamics in [place] and she had some bladder contractions up to 23 cm of water. At that time, she had a grade II to III cystocele as well as a rectocele. She had a cystocele and rectocele repair, but she was still unable to void after the surgery. Finally, we had the InterStim stage I performed. She was able to void spontaneously from the first day after the InterStim trial was started. Her postvoid residual was 23 mL. She is completely continent. There is no urgency or frequency. She wishes to proceed to the InterStim stage II. SHE HAS NUMEROUS DRUG ALLERGIES, BUT SHE IS NOT ALLERGIC TO AMOXICILLIN OR ANCEF. She was given Ancef donkey ride operator to the OR. Finally, she is concerned about some rectal pain. She is quite concerned that her rectocele repair has broken down. She requested that I examine the rectum while she was on the OR table. DESCRIPTION OF PROCEDURE: The patient was placed in prone position on the OR table and she was given IV sedation. I did examine the rectum. She has external hemorrhoids. Palpation of the rectum revealed that the rectocele repair was completely intact with no give and no weakness being palpable. There are no rectal masses. We then cut the external pacemaker lead, where it exited from the skin. The skin was prepped and draped. She has an approximately 1 inch long incision in the right iliac crest region, where the permanent electrode was connected to the temporary test electrode. This incision was infiltrated with 1% lidocaine with epinephrine. The incision was reopened using a #15 blade. With blunt dissection using the fingers, I made a subcutaneous pocket as well as dissect out the electrode. Small adhesions of the electrode to the subcutaneous fat were divided using Bovie. The temporary test electrode remnant that was left was from the permanent electrode. We cut the 2 Prolene sutures that were making the connection watertight. The boot was then slid back away from the connection site. The 4 connecting screws were loosened and the temporary test electrode was discarded. The boot was also removed. The permanent electrode was intact. This was then put into the pacemaker. The connection was made by tightening down the connecting screw with a torque-limiting screwdriver. The pacemaker and the attached lead were then placed into the subcutaneous pocket that I had created in the right iliac crest region. The telemetry unit was then brought in on the skin overlying the very pacemaker. Telemetry revealed that the pacemaker was fully functional and that all 4 channels of the electrodes were fully operational. The wound was OPERATIVE REPORT [id number] AMANDO MURPHY irrigated out with saline. The subcutaneous fat was reapproximated using 3-0 Vicryl simple interrupted sutures. [place] were used to close the skin. A dressing was applied on the incision. I will see her back in 1 week's time to remove the naga. The [employer] representative government relations has transferred her program settings to the permanent pacemaker. TRANSINT:[id number] Voice Confirmation ID: [id number] DOCUMENT ID: [id number] ALEIDA CEBALLOS MD at 1007 CC: [id number] DICTATION DATE: 07/05/18925 MORTGAGE OR LOAN UNDERWRITER: 07/05/1847 REG [facility] [address] [place] [address]
--- NOTE | 2018-07-05 14:22 | NUR ---
0925 UP TO BATHROOM WITH ASSISTANCE. VOIDED URINE. BACK TO BED. Fer GuzmanNMoris 0950 [employer] TECHNICAL OPERATIONS VICE PRESIDENT WITH PATIENT REVIEWING INTERSTIM. Fer Montano.N. 1000 IV DC'ED WITH CATH INTACT. DRESSING. Fer Montano.N. 1030 DRESSED. AWAKE & ALERT. GIVEN DISCHARGE INFORMATION INCLUDING: RX: TYLENOL # 3, MED REC, RTC APPT., & [facility] OUTPATIENT D/C INSTRUCTIONS. PT VOICED UNDERSTANDING. AWAITING [facility]/AIDE FOR TRANSPORTATION HOME. Fer Montano.N. 1100 TO VEHICLE OF [facility] PERSONEL FOR TRANSPORT HOME. Fer Montano.N.
== END 2018-07-05 11:00 | disposition home or self-care (01) ==
LOC: D.OPS 05:37 → D.PAN 07:30 → D.OPS 07:30
PROVIDERS: Anesthesiology; ATTEND Urology
DX: R33.8 Other retention of urine (principal); Z01.812 Encounter for preprocedural laboratory examination

== ENCOUNTER → 2018-07-21 20:02 | Outpatient (CLI) | payer MEDICARE, OTHER ==
[2018-07-05 07:05] VITALS: BMI 21.2
[2018-07-21 20:30] LABS: APPEARANCE CLEAR (CLEAR); BILIRUBIN NEGATIVE (NEGATIVE); COLOR STRAW (YELLOW); GLUCOSE NEGATIVE (NEGATIVE); KETONE NEGATIVE (NEGATIVE); NITRITE NEGATIVE (NEGATIVE); PROTEIN NEGATIVE (NEGATIVE); SPECIFIC GRAVITY 1.005 (1.005-1.020); UROBILINOGEN NORMAL (NORMAL)
[2018-07-21 20:31] LABS: BACTERIA FEW /hpf (NONE SEEN); RED CELLS - URINE 0-5 /hpf (0-5); WHITE CELLS - URINE OCC /hpf (0-5)
== END | disposition home or self-care (01) ==
LOC: D.OPS 07-19 13:00 → D.LABREF 20:02
PROVIDERS: ATTEND Emergency Medicine
DX: R30.0 Dysuria (principal)

== ENCOUNTER 2018-08-07 20:07 | Observation (INO) | payer MEDICARE, OTHER ==
[~2018-08-07] VITALS: Ht 170.2 cm; Wt 59.9 kg
[~2018-08-07 20:07] MED LIST changes: +AMOXIL250 M1 PO; -CRANBERRY AZO; +CRANBERRY AZO PO
[2018-08-07 23:00] VITALS: BP 98/37
--- NOTE | 2018-08-07 23:00 | NUR ---
BP - 98/37. PT STATES THAT SHE IS FEELING DIZZY AND WANTS TO SIT A FEW MINUTES. RECHECK BP AFTER 10 MIN BP - 107/54. WATER PROVIDED.
[2018-08-07 23:10] VITALS: BP 107/54
--- NOTE | 2018-08-08 00:31 | NUR ---
PT STATES IS NOT IMPROVED. STATES IS "DIZZY", "NAUSEATED"- STATES "I THINK MY ELECTROLYTES ARE LOW"- PT STATES WAS TRYING TO GO HOME, BUT DIDN'T FEEL WELL ENOUGH TO GO HOME. ATTEMPTED TO DO ORTHOSTATICS. UNABLE TO STAND FOR LAST B/P.
[2018-08-08 00:50] VITALS: BP 153/69
--- NOTE | 2018-08-08 00:57 | NUR ---
PATIENT C/O INCREASED DIZZINESS WITH STANDING, ABD CRAMPING AND NAUSEA. PT HYPERVENTILATING AND ANXIOUS. STATES HAS HAD APPROX 10 EPISODES OF BM'S SINCE HER LAXATIVE EARLIER. STATES "I KNOW I AM DEHYDRATED AND MY ELECTROLYTES ARE OUT OF BALANCE." DECKER OPERATOR APPLIED TO PATIENT. BLANKET TO PATIENT. PT STATES FEELS WAY WORSE THAN WHEN SHE GOT HERE. DR OREILLY MADE AWARE. HAS ORDERED CARDIAC WORKUP. 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
[2018-08-08 01:03] LABS: BASOPHILS 0.2 % (0-2); EOSINOPHILS 0.6 % (0-7); HEMOGLOBIN 11.7 g/dL (12-16); IMMATURE GRANULOCYTES 0.2 % (0-5); LYMPHOCYTES 16.6 % (15-50); MCH 30.8 pg (26.0-34.0); MCHC 34.4 g/dL (31.0-37.0); MCV 89.5 fL (80.0-100.0); MEAN PLATELET VOLUME 9.4 fL (7.4-10.4); NEUTROPHILS 76.4 % (40-80); PLATELET COUNT 217 10x3/uL (130-400); RDW 13.7 % (11.5-14.5); WBC 8.9 10x3/uL (4.8-10.8)
[2018-08-08 01:26] LABS: ALBUMIN 3.4 g/dL (3.4-5.0); ALKALINE PHOSPHATASE 48 U/L (46-116); ALT (SGPT) 28 U/L (10-68); CALC OSMOLALITY 255 mosm/kg (275-300); CALCIUM 8.8 mg/dL (8.5-10.1); CARBON DIOXIDE 20.3 mmol/L (21.0-32.0); CHLORIDE - SERUM 95 mmol/L (98-107); CREATININE - SERUM 0.8 mg/dL (0.6-1.3); GLUCOSE 106 mg/dL (74-106); POTASSIUM - SERUM 3.4 mmol/L (3.5-5.1); PROTEIN - SERUM 6.9 g/dL (6.4-8.2); SODIUM 128 mmol/L (136-145); UREA NITROGEN 11 mg/dL (7-18); eGFR NON AFRICAN AMERICAN 73 mL/min (90-120)
[2018-08-08 01:29] LABS: CREATINE KINASE 116 UL (21-215); TROPONIN-I < 0.017 ng/mL (0.000-0.060)
--- NOTE | 2018-08-08 01:31 | NUR ---
PT REPORTS THAT SHE FEELS LIKE HER RECTUM AND BLADDER HAVE PROLAPSED. ADVISED EDP. EDP DOWNEN AT BEDSIDE WITH THIS NURSE TO EXAMINE PATIENT.
--- NOTE | 2018-08-08 02:42 | NUR ---
RECEIVED REPORT, WILL ASSUME CARE OF PT, PLACED ON 2L OF O2, PLACE ON TELEMTRY, BED IS LOW, SRX2, CALL LIGHT IN REACH, WILL CONTINUE PLAN OF CARE
[2018-08-08 05:41] VITALS: BP 150/53
[2018-08-08 06:34] VITALS: BP 122/46; BMI 20.7
--- NOTE | 2018-08-08 07:10 | NUR ---
ASSESSMENT DONE. DENIES NEEDS.
--- NOTE | 2018-08-08 07:29 | NUR ---
TO OR PER BY
--- NOTE | 2018-08-08 07:29 | NUR ---
NO OR ORDERS RECIVED
[2018-08-08 08:59] VITALS: Ht 170.2 cm; Wt 59.9 kg
[2018-08-08 10:05] VITALS: BP 129/71
--- NOTE | 2018-08-08 10:40 | NUR ---
I have reviewed this patient and I concur with the Shift Assessment completed by the Licensed Practical Nurse today this shift.
[2018-08-08] MEDS ORDERED: MIRALAX17 GM PO (13:02)
[2018-08-08 13:08] VITALS: BP 143/73
[2018-08-08 16:21] LABS: ANION GAP 14.1 mmol/L (8-16); CALCIUM 7.9 mg/dL (8.5-10.1); CARBON DIOXIDE 20.3 mmol/L (21.0-32.0); CREATININE - SERUM 0.8 mg/dL (0.6-1.3)
[2018-08-08 16:35] LABS: POTASSIUM - SERUM 4.4 mmol/L (3.5-5.1)
--- NOTE | 2018-08-08 18:24 | NUR ---
DC GIVEN TO PT
--- NOTE | 2018-08-08 18:41 | NUR ---
DC HOME PER PERSONAL CAR
--- NOTE | 2018-08-09 08:12 | MORECARE ---
CASE MANAGEMENT DISCHARGE SUMMARY PATIENT: AMANDO MURPHY UNIT: [id number] ADM DATE: 08/08/18 AGE: 78 : 40 SEX: F ROOM/BED: D.3913 AUTHOR: JAMES MADRID PHYSICIAN: REFERRING PHYSICIAN: JOSEFA DIAZ MD DATE OF SERVICE: 08/09/18 Discharge Plan Patient Name: AMANDO MURPHY Facility: [facility]:[place] : 1940 Planned Disposition: Home Anticipated Discharge Date: 08/08/18 Discharge Date: 08/08/2018 Expected LOS: 1 Initial Reviewer: [email or web address] Initial Review Date: 08/09/2018 Generated: 08/09/18 9:12 am Patient Name: AMANDO MURPHY Page 16875 at 0812 All edits/amendments must be made on the electronic document DICTATION DATE: 08/09/18811 PHYSICAL SCIENCE TEACHER: FAYE 08/09/18811 RPT#: [id number] DC DATE:08/08/18 STATUS: DIS IN [facility] [address] [place] [address] END OF REPORT
== END 2018-08-08 18:42 | disposition home or self-care (01) ==
LOC: D.ER 20:07 → D.M2 08-08 01:42 → OBSVTIME 08-08 01:42 → D.EDHOLD 08-08 01:42 → D.M2 08-08 01:57
PROVIDERS: Family Medicine; Internal Medicine Nephrology; ADMIT Family Medicine; ATTEND Family Medicine
DX: K64.8 Other hemorrhoids (principal); I25.10 Atherosclerotic heart disease of native coronary artery without angina pectoris; K59.09 Other constipation; E87.6 Hypokalemia; E87.1 Hypo-osmolality and hyponatremia; R54 Age-related physical debility; R32 Unspecified urinary incontinence; D64.9 Anemia, unspecified; R07.9 Chest pain, unspecified; K21.9 Gastro-esophageal reflux disease without esophagitis; M81.0 Age-related osteoporosis without current pathological fracture

== ENCOUNTER 2018-08-26 18:48 | Emergency (ER) | payer MEDICARE, OTHER ==
[~2018-08-26] VITALS: Ht 170.2 cm; Wt 58.2 kg
[2018-08-26 18:58] VITALS: Ht 170.2 cm; Wt 58.2 kg
[2018-08-26] MEDS ORDERED: OMEPRAZOLE20 M1 PO (19:00)
[2018-08-26] MEDS ORDERED: KEFLEX500 MG PO (19:01)
[2018-08-26 19:49] LABS: BASOPHILS 0.2 % (0-2); HEMATOCRIT 31.6 % (36.0-48.0); IMMATURE GRANULOCYTES 0.2 % (0-5); LYMPHOCYTES 22.4 % (15-50); MCHC 34.8 g/dL (31.0-37.0); MEAN PLATELET VOLUME 9.3 fL (7.4-10.4); MONOCYTES 9.6 % (2-11); NEUTROPHILS 66.6 % (40-80); PLATELET COUNT 224 10x3/uL (130-400); RBC 3.55 10x6/uL (4.00-5.40); RDW 13.3 % (11.5-14.5); WBC 5.8 10x3/uL (4.8-10.8)
[2018-08-26 20:07] LABS: ALBUMIN 3.4 g/dL (3.4-5.0); ALKALINE PHOSPHATASE 53 U/L (46-116); ALT (SGPT) 31 U/L (10-68); BILIRUBIN - TOTAL 0.45 mg/dL (0.2-1.3); CALC OSMOLALITY 252 mosm/kg (275-300); CALCIUM 8.9 mg/dL (8.5-10.1); CHLORIDE - SERUM 93 mmol/L (98-107); CREATININE - SERUM 0.5 mg/dL (0.6-1.3); POTASSIUM - SERUM 3.4 mmol/L (3.5-5.1); PROTEIN - SERUM 6.9 g/dL (6.4-8.2); SODIUM 126 mmol/L (136-145); UREA NITROGEN 12 mg/dL (7-18); eGFR NON AFRICAN AMERICAN > 90 mL/min (90-120)
[2018-08-26 20:08] LABS: GLUCOSE 102 mg/dL (74-106)
[2018-08-26 20:33] LABS: APPEARANCE CLEAR (CLEAR); BILIRUBIN NEGATIVE (NEGATIVE); COLOR COLORLESS (YELLOW); GLUCOSE NEGATIVE (NEGATIVE); KETONE NEGATIVE (NEGATIVE); NITRITE NEGATIVE (NEGATIVE); PROTEIN NEGATIVE (NEGATIVE); UROBILINOGEN NORMAL (NORMAL)
[2018-08-26 20:37] LABS: RED CELLS - URINE OCC /hpf (0-5)
[2018-08-26] MEDS ORDERED: THERMOTABS 1 GM1 GM PO (20:53)
[2018-08-26] MEDS ORDERED: CHRONULAC30 ML PO (20:54)
[2018-08-26 21:48] VITALS: BP 172/72
== END 2018-08-26 21:52 | disposition home or self-care (01) ==
LOC: D.ER 18:48
PROVIDERS: Emergency Medicine
DX: K59.09 Other constipation (principal); E87.1 Hypo-osmolality and hyponatremia

== ENCOUNTER 2018-08-27 05:50 | Emergency (ER) | payer MEDICARE, OTHER ==
[~2018-08-27 05:50] MED LIST changes: +CHRONULAC30 ML PO; +KEFLEX500 MG PO; +OMEPRAZOLE20 M1 PO; +THERMOTABS 1 GM1 GM PO
[2018-08-27 05:57] VITALS: BMI 20.1
[2018-08-27 07:31] VITALS: BP 128/74
== END 2018-08-27 07:32 | disposition home or self-care (01) ==
LOC: D.ER 05:50
DX: R19.7 Diarrhea, unspecified (principal)

== ENCOUNTER 2018-08-31 12:50 | Outpatient (CLI) | payer MEDICARE, OTHER ==
[2018-08-31 13:45] VITALS: BP 135/84; BMI 20.4
== END 2018-08-31 14:02 | disposition home or self-care (01) ==
LOC: D.OPS 12:50
PROVIDERS: ATTEND Emergency Medicine
DX: M81.0 Age-related osteoporosis without current pathological fracture (principal)

== ENCOUNTER → 2018-09-12 14:50 | Outpatient (CLI) | payer MEDICARE, OTHER ==
[2018-08-31 13:45] VITALS: BMI 20.4
[~2018-09-12 14:50] MED LIST changes: +TRULANCE3 MG PO
== END | disposition home or self-care (01) ==
LOC: D.RAD 14:50
PROVIDERS: ATTEND Internal Medicine Gastroenterology
DX: R10.13 Epigastric pain (principal); K59.09 Other constipation; R13.10 Dysphagia, unspecified

== ENCOUNTER 2018-09-13 14:43 | Emergency (ER) | payer MEDICARE, OTHER ==
[~2018-09-13] VITALS: Ht 170.2 cm; Wt 59.1 kg
[~2018-09-13 14:43] MED LIST changes: -TRULANCE3 MG PO
[2018-09-13 14:48] VITALS: Ht 170.2 cm; Wt 59.1 kg
[2018-09-13] MEDS ORDERED: TRULANCE3 MG PO (14:54)
[2018-09-13 16:52] LABS: BASOPHILS 0.5 % (0-2); EOSINOPHILS 0.6 % (0-7); HEMATOCRIT 35.7 % (36.0-48.0); HEMOGLOBIN 12.1 g/dL (12-16); IMMATURE GRANULOCYTES 0.2 % (0-5); LYMPHOCYTES 23.7 % (15-50); MCH 31.5 pg (26.0-34.0); MCHC 33.9 g/dL (31.0-37.0); MEAN PLATELET VOLUME 9.4 fL (7.4-10.4); MONOCYTES 5.5 % (2-11); NEUTROPHILS 69.5 % (40-80); PLATELET COUNT 240 10x3/uL (130-400); RBC 3.84 10x6/uL (4.00-5.40); RDW 13.6 % (11.5-14.5); WBC 6.3 10x3/uL (4.8-10.8)
[2018-09-13 17:13] LABS: ALBUMIN 3.8 g/dL (3.4-5.0); ALKALINE PHOSPHATASE 58 U/L (46-116); ALT (SGPT) 36 U/L (10-68); BILIRUBIN - TOTAL 0.61 mg/dL (0.2-1.3); CALC OSMOLALITY 257 mosm/kg (275-300); CARBON DIOXIDE 26.7 mmol/L (21.0-32.0); CHLORIDE - SERUM 96 mmol/L (98-107); CREATININE - SERUM 0.6 mg/dL (0.6-1.3); GLUCOSE 96 mg/dL (74-106); POTASSIUM - SERUM 3.8 mmol/L (3.5-5.1); PROTEIN - SERUM 7.5 g/dL (6.4-8.2); SODIUM 129 mmol/L (136-145); UREA NITROGEN 11 mg/dL (7-18); eGFR NON AFRICAN AMERICAN > 90 mL/min (90-120)
[2018-09-13 17:36] VITALS: BP 150/76
== END 2018-09-13 17:38 | disposition home or self-care (01) ==
LOC: D.ER 14:43
PROVIDERS: Family Medicine
DX: T50.995A Adverse effect of other drugs, medicaments and biological substances, initial encounter (principal); Y92.019 Unspecified place in single-family (private) house as the place of occurrence of the external cause

== ENCOUNTER 2018-10-02 13:39 | Observation (INO) | payer MEDICARE, OTHER | END 2018-10-03 16:11 | disposition home or self-care (01) | LOC: D.ER 13:39 → D.MS 17:40 | PROVIDERS: ADMIT Family Medicine | DX: R33.9 Retention of urine, unspecified (principal); I10 Essential (primary) hypertension; I25.10 Atherosclerotic heart disease of native coronary artery without angina pectoris; K59.09 Other constipation; D64.9 Anemia, unspecified; E87.1 Hypo-osmolality and hyponatremia ==

== ENCOUNTER 2018-10-05 06:45 | Day surgery (SDC) | payer MEDICARE, OTHER ==
[2018-10-04 13:29] LABS: HEMATOCRIT 35.6 % (36.0-48.0); HEMOGLOBIN 12.2 g/dL (12-16); MCH 31.4 pg (26.0-34.0); MCHC 34.3 g/dL (31.0-37.0); MCV 91.8 fL (80.0-100.0); MEAN PLATELET VOLUME 9.4 fL (7.4-10.4); RBC 3.88 10x6/uL (4.00-5.40); RDW 13.5 % (11.5-14.5)
[2018-10-04 13:46] LABS: WBC 5.9 10x3/uL (4.8-10.8)
[~2018-10-05] VITALS: Ht 170.2 cm; Wt 60.3 kg
[~2018-10-05 06:45] MED LIST changes: +TRULANCE3 MG PO
[2018-10-05] MEDS ORDERED: PEPCID AC20 MG PO (07:36)
[2018-10-05 07:46] VITALS: BP 139/62; Ht 170.2 cm; Wt 60.3 kg
[2018-10-05] MEDS ORDERED: HYDROCODON-ACE1 EAC7 PO (10:06)
--- NOTE | 2018-10-05 10:55 | NUR ---
REC'D FROM MICHELLE. APPLE JUICE BROUGHT TO PATIENT. RELATED FEELS LIKE SHE NEEDS TO URINATE. ASSISTED PATIENT UP AND SHE WAS INCONTINENT URINATING FROM THE BED TO THE BATHROOM. PATIENT CLEANED AND PUT ON A DEPENDS AND WAS GIVEN A PAD TO PLACE IN THE DEPENDS TO ABSORB BLOOD FROM HEMORROID SURGERY.
--- NOTE | 2018-10-05 11:25 | NUR ---
FL TRAY BROUGHT TO PATIENT. RX CALLED INTO PHARMACY OF PATIENT'S CHOICE. KARENY, PATIENT'S TRANSPORTATION CALLED AND MESSAGE LEFT FOR CALLBACK AND PATIENT DISCHARGE TIME.
--- NOTE | 2018-10-05 11:55 | NUR ---
TOLERATED FL TRAY. IV DC'D WITH CATHETER INTACT. WRITTEN AND VERBAL DC INST. GIVEN TO PT. VERBALIZED UNDERSTANDING.
--- NOTE | 2018-10-05 12:30 | NUR ---
DC'D HOME WITH CAREGIVER VIA PRIVATE VEHICLE. STABLE AT TIME OF DC.
== END 2018-10-05 12:30 | disposition home or self-care (01) ==
LOC: D.OPS 06:45 → D.PAN 06:45 → D.OPS 09:30
PROVIDERS: Anesthesiology; ATTEND Surgery
DX: K62.3 Rectal prolapse (principal); Z01.812 Encounter for preprocedural laboratory examination

== ENCOUNTER 2018-10-12 01:25 | Observation (INO) | payer MEDICARE, OTHER ==
[~2018-10-12] VITALS: Ht 170.2 cm; Wt 56.8 kg
[~2018-10-12 01:25] MED LIST changes: +HYDROCODON-ACE1 EAC7 PO; +PEPCID AC20 MG PO
--- NOTE | 2018-10-12 01:35 | NUR ---
HOMECARE AND FOLLOW UP INFORMATION PROVIDED, PT ACKNOWLEDGED, PT STABLE AT DE.
[2018-10-12 02:44] LABS: APPEARANCE CLEAR (CLEAR); BILIRUBIN NEGATIVE (NEGATIVE); COLOR YELLOW (YELLOW); GLUCOSE NEGATIVE (NEGATIVE); KETONE NEGATIVE (NEGATIVE); NITRITE POSITIVE (NEGATIVE); PROTEIN NEGATIVE (NEGATIVE); UROBILINOGEN NORMAL (NORMAL)
[2018-10-12 02:46] LABS: BACTERIA FEW /hpf (NONE SEEN); EPITHELIAL CELLS 0-5 /hpf (0-5); RED CELLS - URINE 0-5 /hpf (0-5)
[2018-10-12 02:49] LABS: BASOPHILS 0.4 % (0-2); EOSINOPHILS 1.4 % (0-7); HEMATOCRIT 33.9 % (36.0-48.0); HEMOGLOBIN 11.8 g/dL (12-16); IMMATURE GRANULOCYTES 0.3 % (0-5); LYMPHOCYTES 17.8 % (15-50); MCH 31.4 pg (26.0-34.0); MCHC 34.8 g/dL (31.0-37.0); MCV 90.2 fL (80.0-100.0); MEAN PLATELET VOLUME 9.4 fL (7.4-10.4); NEUTROPHILS 69.1 % (40-80); PLATELET COUNT 240 10x3/uL (130-400); RBC 3.76 10x6/uL (4.00-5.40); RDW 13.3 % (11.5-14.5); WBC 7.6 10x3/uL (4.8-10.8)
[2018-10-12 03:05] LABS: ALBUMIN 3.6 g/dL (3.4-5.0); ALKALINE PHOSPHATASE 57 U/L (46-116); ALT (SGPT) 35 U/L (10-68); BILIRUBIN - TOTAL 0.44 mg/dL (0.2-1.3); CALC OSMOLALITY 264 mosm/kg (275-300); CARBON DIOXIDE 24.6 mmol/L (21.0-32.0); CHLORIDE - SERUM 96 mmol/L (98-107); CREATININE - SERUM 0.5 mg/dL (0.6-1.3); GLUCOSE 105 mg/dL (74-106); POTASSIUM - SERUM 3.7 mmol/L (3.5-5.1); PROTEIN - SERUM 7.2 g/dL (6.4-8.2); SODIUM 132 mmol/L (136-145); UREA NITROGEN 12 mg/dL (7-18); eGFR NON AFRICAN AMERICAN > 90 mL/min (90-120)
--- NOTE | 2018-10-12 03:20 | NUR ---
PT REFUSING IV AND FLUIDS AT THIS TIME. EDP ATTEMPTED TO GO TO ROOM AND PT WAS IN THE BATHROOM.
--- NOTE | 2018-10-12 03:21 | NUR ---
WATER PROVIDED PER PT REQUEST.
[2018-10-12 06:49] VITALS: BP 157/60
--- NOTE | 2018-10-12 08:00 | NUR ---
PATIENT UPSET BC OF HOW SHE WAS TREATED IN THE ER BY THE NURSES. 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 NOTIFIED RICHI AT THIS TIME. PATIENT WANTS PUGA PLACED. WILL TALK TO CATRACHO. PATIENT IV INTACT. CALL LIGHT WITHIN REACH.
[2018-10-12 09:45] VITALS: BP 112/59
--- NOTE | 2018-10-12 10:45 | NUR ---
PATIENT PUGA PLACED BY STUDENTS AND INSTRUCTOR AT THIS TIME.
--- NOTE | 2018-10-12 11:10 | NUR ---
SPOKE WITH LELA ZAMORANO ABOUT PATIENTS COMPLAINTS. ASKED HER TO SPEAK WITH PATIENT. PATIENT TOLD ME SHE NEVER TALKED TO ANYONE ABOUT HER CONCERNS YET. SITTING UP IN BED. BSCDS PLACED ON. CALL LIGHT WITHIN REACH.
[2018-10-12 13:10] VITALS: BMI 19.5
[2018-10-12 13:15] VITALS: BP 153/86; BMI 19.6
[2018-10-12] MEDS ORDERED: KEFLEX500 MG PO (14:01)
[2018-10-12] MEDS ORDERED: HYDROCODON-ACE1 EAC7 PO (14:02)
[2018-10-12] MEDS ORDERED: PHENAZOPYRIDIN100 MG PO (14:03)
--- NOTE | 2018-10-12 14:09 | NUR ---
PATIENT REPORT GIVEN TO KOLE KYLE. PATIENT IN BED WITH NO COMPLAINTS. IV AND PUGA INTACT. CALL LIGHT WITHIN REACH.
--- NOTE | 2018-10-12 14:10 | NUR ---
REPORT RECD FROM DIANA HAMEED RN. CARE ASSUMED OF PATIENT. PT REPORTS BURNING IN LOWER ABDOMINAL AREA. PUGA CATHETER IS DRAINING WITHOUT DIFFICULTY. CLEAR YELLOW URINE NOTED TO COLLECTION BAG. PT IS AAO X 4. BED IS IN THE LOWEST POSITION. CALL LIGHT AND BEDSIDE TABLE ARE WITHIN REACH. SIDE RAILS X 2. WILL CONT TO MONITOR.
[2018-10-12 14:12] VITALS: BP 145/57
[2018-10-12 14:53] VITALS: Ht 170.2 cm; Wt 56.8 kg
--- NOTE | 2018-10-12 15:30 | MORECARE ---
CASE MANAGEMENT DISCHARGE SUMMARY PATIENT: AMANDO MURPHY UNIT: [id number] ADM DATE: 10/12/18 AGE: 78 : 40 SEX: F ROOM/BED: D.2220 AUTHOR: JAMES MADRID PHYSICIAN: REFERRING PHYSICIAN: JOSEFA DIAZ MD DATE OF SERVICE: 10/12/18 Discharge Plan Patient Name: AMANDO MURPHY [facility] : 1940 Planned Disposition: Anticipated Discharge Date: Discharge Date: Expected LOS: Initial Reviewer: [email or web address] Initial Review Date: 10/12/2018 Generated: 10/12/18 4:30 pm Comments DCP- Discharge Planning Updated by [email or web address]: Melinda Jane on 10/12/18 2:[address] CARLOS served and explained. Patient voiced understanding. Copy given to her and signed copy placed in chart Coverage Notice Reviewer: [email or web address] - Melinda Jane Notice Issued Date-Time: 10/12/2018 15:28 Notice Type: Medicare Outpatient Observation Notice Notice Delivered To: Patient Relationship to Patient: Paymaster Of Purses Name: Delivery Method: HAND - Hand Delivered Maria Elena Days: Prior Verbal Notification: Recipient Understood Notice: Yes Recipient Signature: Yes Med Rec Note Co-signed by Attending: Coverage Notice Comment: Patient Name: AMANDO MURPHY Page [phone] at 1530 All edits/amendments must be made on the electronic document DICTATION DATE: 10/12/18 1530 FARMER VEGETABLE: FAYE 10/12/18 1530 RPT#: [id number] DC DATE: STATUS: ADM IN [facility] [address] [place] [address] END OF REPORT
[2018-10-12 17:22] VITALS: BP 137/63
[2018-10-12 20:51] VITALS: BP 118/43
--- NOTE | 2018-10-12 23:52 | NUR ---
C/O NAUSEA NO EMESIS SEEN ZOFRAN 4MG IV GIVEN FOR RELIEF.
--- NOTE | 2018-10-13 01:08 | NUR ---
AWAKE WALKING IN HALLWAY.
[2018-10-13 01:35] VITALS: BP 124/54
--- NOTE | 2018-10-13 04:13 | NUR ---
AWAKE WALKING AROUND IN ROOM.
[2018-10-13 05:46] LABS: BASOPHILS 0.6 % (0-2); EOSINOPHILS 3.7 % (0-7); HEMATOCRIT 31.1 % (36.0-48.0); HEMOGLOBIN 10.5 g/dL (12-16); IMMATURE GRANULOCYTES 0.2 % (0-5); LYMPHOCYTES 19.4 % (15-50); MCHC 33.8 g/dL (31.0-37.0); MCV 91.7 fL (80.0-100.0); MEAN PLATELET VOLUME 9.6 fL (7.4-10.4); MONOCYTES 11.7 % (2-11); NEUTROPHILS 64.4 % (40-80); PLATELET COUNT 212 10x3/uL (130-400); RBC 3.39 10x6/uL (4.00-5.40); RDW 13.7 % (11.5-14.5)
[2018-10-13 05:55] LABS: WBC 4.6 10x3/uL (4.8-10.8)
[2018-10-13 06:31] VITALS: BP 134/46
[2018-10-13 06:48] LABS: CALC OSMOLALITY 266 mosm/kg (275-300); CALCIUM 8.1 mg/dL (8.5-10.1); CARBON DIOXIDE 23.1 mmol/L (21.0-32.0); CHLORIDE - SERUM 103 mmol/L (98-107); CREATININE - SERUM 0.5 mg/dL (0.6-1.3); GLUCOSE 97 mg/dL (74-106); MAGNESIUM - SERUM 2.3 mg/dL (1.8-2.4); PHOSPHOROUS 2.7 mg/dL (2.5-4.9); POTASSIUM - SERUM 3.8 mmol/L (3.5-5.1); SODIUM 134 mmol/L (136-145); UREA NITROGEN 11 mg/dL (7-18); eGFR NON AFRICAN AMERICAN > 90 mL/min (90-120)
--- NOTE | 2018-10-13 07:36 | NUR ---
PT IS RESTING IN BED WITH EYES OPEN. RESPIRATIONS ARE EVEN AND UNLABORED. PT DENIES PRESENCE OF PAIN AT THIS TIME. PUGA CATHETER IS PRESENT AND DRAINING WITHOUT DIFFICULTY. ORANGE COLORED URINE NOTED TO PUGA COLLECTION BAG. STAT LOCK IS IN PLACE. PT REPORTS CONCERNS RELATED TO HER GI FUNCTION AND INABILITY TO DEFECATE. PT REPORTS A FEELING OF FULLNESS IN THE ABDOMINAL AREA BUT DENIES PRESENCE OF PAIN. PT DENIES ABILITY TO PASS GAS. BS ARE HYPERACTIVE. PT DENIES PRESENCE OF TENDERNESS UPON ABDOMINAL PALPATION. WILL ADDRESS CONCERNS RELATED TO GI. PT DENIES FURTHER NEEDS. BED IS IN THE LOWEST POSITION. CALL LIGHT AND BEDSIDE TABLE ARE WITHIN REACH. SIDE RAILS X 2. PT REFUSES SCDS. WILL CONT TO MONITOR.
--- NOTE | 2018-10-13 09:17 | NUR ---
PT WITH SMALL LOOSE DARK BROWN BM. PT DENIES PRESENCE OF PAIN WITH DEFECATION.
[2018-10-13 09:38] VITALS: BP 111/46
[2018-10-13] MEDS ORDERED: LINZESS145 MCG PO (10:06)
[2018-10-13] MEDS ORDERED: FLORAJEN3 CAPS460 MG PO (10:06)
--- NOTE | 2018-10-13 10:30 | NUR ---
BLADDER TRAINING INITIATED. PT EDUCATED ON PURPOSE OF BLADDER TRAINING. PT VERBALIZES UNDERSTANDING. PT STATES CONCERNS RELATED TO DISCHARGE. PT STATES "I AM NOT COMFORTABLE WITH LEAVING UNTIL I TALK WITH THE GI DOCTOR". GI IS NOT CONSULTED ON PT. WILL ADDRESS. PT DENIES FURTHER CONCERNS/NEEDS AT THIS TIME. WILL CONT TO MONITOR.
--- NOTE | 2018-10-13 10:54 | NUR ---
SPOKE WITH RACHAEL HUA REGARDING PT CONCERNS RELATED TO DISCHARGE AND GI CONSULT. WILL AWAIT FOR FURTHER ORDERS/INSTRUCTIONS.
--- NOTE | 2018-10-13 11:28 | NUR ---
PT REPORTS BLEEDING AND LEAKING TO PIV SITE. PT STATES THAT SHE WAS ATTEMPTING TO PUT ON HER ROBE AND THE IV STARTED TO LEAK. PIV REMOVED WITH CATHETER TIP INTACT. DRESSING APPLIED.
--- NOTE | 2018-10-13 12:13 | NUR ---
PUGA CATHETER UNCLAMPED. PT REPORTS A "SLIGHT" FEELING FOR THE URGE TO URINATE. CATHETER BEGAN DRAINING WITHOUT DIFFICULTY. CLEAR ORANGE URINE NOTED TO PUGA TUBING AND COLLECTION BAG.
[2018-10-13 14:11] VITALS: BP 163/73
--- NOTE | 2018-10-13 14:47 | NUR ---
D/C PUGA CATHETER. INSTRUCTED TO INCREASE FLUIDS. CALL DOCTOR IF HAVE NOT URINATED WITHIN 8 HOURS.
--- NOTE | 2018-10-13 15:15 | NUR ---
PT STATES THAT SHE HAS VOIDED WITH EFFORT.
--- NOTE | 2018-10-13 15:38 | NUR ---
DISCHARGE INSTRUCTIONS GIVEN TO PT. DISCHARGE INSTRUCTIONS COVERED WITH PT. ALL PT QUESTIONS ANSWERED. PT DENIES FURTHER QUESTIONS/CONCERNS. ALL DISCHARGE PAPERS SIGNED.
--- NOTE | 2018-10-13 15:57 | MORECARE ---
CASE MANAGEMENT DISCHARGE SUMMARY PATIENT: AMANDO MURPHY UNIT: [id number] ADM DATE: 10/12/18 AGE: 78 : 40 SEX: F ROOM/BED: D.2220 AUTHOR: JAMES MADRID PHYSICIAN: REFERRING PHYSICIAN: JOSEFA DIAZ MD DATE OF SERVICE: 10/13/18 Discharge Plan Patient Name: AMANDO MURPHY Facility: [facility]:[place] : 1940 Planned Disposition: Anticipated Discharge Date: Discharge Date: Expected LOS: Initial Reviewer: [id number] Initial Review Date: 10/12/2018 Generated: 10/13/18 4:56 pm Comments DCP- Discharge Planning Updated by [email or web address]: Melinda Jane on 10/13/18 2:[address] SPOKE WITH PATIENT AND COUSIN AT LENGTH ALONG WITH DR SADLER. PATIENT IS TO GO TO DR ESPINO OFFICE AND LAND RESOURCE SPECIALIST SAMPLES FOR LINZESS TODAY THEY WILL HAVE THEM WAITING AT THE MANAGER ORACLE DAT[employer]ASE. I ALSO GAVE HER INFORMATION ABOUT ABOUT APPLYING FOR MODEL HOME SALES GREETER FROM THE [employer] THAT THEY HAVE PROGRAMS FOR PEOPLE WHO CAN'T AFFORD THE MEDICATION, IF THIS MEDICINCE WILL WORK FOR HER. SHE STATED UNDERSTANDING. PATIENT DENIES ANY OTHER NEEDS FROM A CM STANDPOINT. DCP- Discharge Planning Updated by [id number]: Melinda Jane on 10/12/18 2:[address] CARLOS served and explained. Patient voiced understanding. Copy given to her and signed copy placed in chart Coverage Notice Reviewer: [id number] - Melinda Jane Notice Issued Date-Time: 10/12/2018 15:28 Notice Type: Medicare Outpatient Observation Notice Notice Delivered To: Patient Relationship to Patient: Air Drill Operator Name: Delivery Method: HAND - Hand Delivered Maria Elena Days: Prior Verbal Notification: Recipient Understood Notice: Yes Recipient Signature: Yes Med Rec Note Co-signed by Attending: Coverage Notice Comment: Last DP export: 10/12/18 2:30 p Patient Name: AMANDO MURPHY Page [phone] at 1557 All edits/amendments must be made on the electronic document DICTATION DATE: 10/13/18 3053 RENTAL COUNTER CLERK: FAYE 10/13/18 1556 RPT#: [id number] DC DATE: STATUS: ADM IN [facility] [address] [place] [address] END OF REPORT
== END 2018-10-13 16:32 | disposition home or self-care (01) ==
LOC: D.ER 01:25 → D.MS 05:38 → OBSVTIME 05:38 → D.MS 10-13 16:32
PROVIDERS: Family Medicine; ADMIT Family Medicine; ATTEND Family Medicine
DX: K59.09 Other constipation (principal); R32 Unspecified urinary incontinence; N39.0 Urinary tract infection, site not specified; E86.0 Dehydration; I10 Essential (primary) hypertension; I25.10 Atherosclerotic heart disease of native coronary artery without angina pectoris; K21.9 Gastro-esophageal reflux disease without esophagitis; M19.90 Unspecified osteoarthritis, unspecified site; F41.9 Anxiety disorder, unspecified; R53.1 Weakness

== ENCOUNTER 2018-10-15 15:57 | Emergency (ER) | payer MEDICARE, OTHER ==
[~2018-10-15] VITALS: Ht 170.2 cm; Wt 56.8 kg
[~2018-10-15 15:57] MED LIST changes: +FLORAJEN3 CAPS460 MG PO; +LINZESS145 MCG PO; +PHENAZOPYRIDIN100 MG PO
[2018-10-15 16:08] VITALS: Ht 170.2 cm; Wt 56.8 kg
[2018-10-15] MEDS ORDERED: KEFLEX250 MG (16:09)
[2018-10-15 16:54] LABS: BASOPHILS 0.2 % (0-2); EOSINOPHILS 0.5 % (0-7); HEMATOCRIT 31.8 % (36.0-48.0); HEMOGLOBIN 11.1 g/dL (12-16); IMMATURE GRANULOCYTES 0.2 % (0-5); LYMPHOCYTES 20.8 % (15-50); MCH 31.4 pg (26.0-34.0); MCHC 34.9 g/dL (31.0-37.0); MCV 89.8 fL (80.0-100.0); MEAN PLATELET VOLUME 9.5 fL (7.4-10.4); NEUTROPHILS 68.3 % (40-80); PLATELET COUNT 228 10x3/uL (130-400); RBC 3.54 10x6/uL (4.00-5.40); RDW 13.4 % (11.5-14.5); WBC 6.6 10x3/uL (4.8-10.8)
[2018-10-15 16:59] LABS: APPEARANCE CLEAR (CLEAR); BILIRUBIN NEGATIVE (NEGATIVE); COLOR STRAW (YELLOW); GLUCOSE NEGATIVE (NEGATIVE); KETONE NEGATIVE (NEGATIVE); NITRITE NEGATIVE (NEGATIVE); PROTEIN NEGATIVE (NEGATIVE); UROBILINOGEN NORMAL (NORMAL)
[2018-10-15 17:00] LABS: ALBUMIN 3.5 g/dL (3.4-5.0); ALKALINE PHOSPHATASE 54 U/L (46-116); ALT (SGPT) 39 U/L (10-68); BILIRUBIN - TOTAL 0.75 mg/dL (0.2-1.3); CALC OSMOLALITY 251 mosm/kg (275-300); CALCIUM 8.2 mg/dL (8.5-10.1); CHLORIDE - SERUM 94 mmol/L (98-107); CREATININE - SERUM 0.4 mg/dL (0.6-1.3); GLUCOSE 99 mg/dL (74-106); POTASSIUM - SERUM 3.2 mmol/L (3.5-5.1); PROTEIN - SERUM 6.8 g/dL (6.4-8.2); SODIUM 126 mmol/L (136-145); UREA NITROGEN 9 mg/dL (7-18); eGFR NON AFRICAN AMERICAN > 90 mL/min (90-120)
[2018-10-15] MEDS ORDERED: K-DUR20 MEQ PO (18:14)
[2018-10-15] MEDS ORDERED: ZOFRAN ODT4 MG/UDTAB PO (18:15)
[2018-10-15 18:36] VITALS: BP 152/72
== END 2018-10-15 18:36 | disposition home or self-care (01) ==
LOC: D.ER 15:57
PROVIDERS: Emergency Medicine
DX: R19.7 Diarrhea, unspecified (principal); D64.9 Anemia, unspecified; E87.6 Hypokalemia

== ENCOUNTER 2018-10-18 20:34 | Emergency (ER) | payer MEDICARE, OTHER ==
[2018-10-15 16:08] VITALS: BMI 19.6
[~2018-10-18 20:34] MED LIST changes: +K-DUR20 MEQ PO; +KEFLEX250 MG; +ZOFRAN ODT4 MG/UDTAB PO
== END 2018-10-18 21:38 | disposition home or self-care (01) ==
LOC: D.ER 20:34
DX: R39.89 Other symptoms and signs involving the genitourinary system (principal)

== ENCOUNTER 2018-10-19 08:50 | Emergency (ER) | payer MEDICARE, OTHER ==
[~2018-10-19] VITALS: Ht 170.2 cm; Wt 59.1 kg
[2018-10-19 08:52] VITALS: Ht 170.2 cm; Wt 59.1 kg
[2018-10-19 09:27] LABS: BASOPHILS 0.2 % (0-2); EOSINOPHILS 0.2 % (0-7); HEMATOCRIT 35.1 % (36.0-48.0); HEMOGLOBIN 12.5 g/dL (12-16); IMMATURE GRANULOCYTES 0.2 % (0-5); LYMPHOCYTES 15.5 % (15-50); MCH 31.5 pg (26.0-34.0); MCHC 35.6 g/dL (31.0-37.0); MCV 88.4 fL (80.0-100.0); MEAN PLATELET VOLUME 9.2 fL (7.4-10.4); NEUTROPHILS 76.9 % (40-80); PLATELET COUNT 259 10x3/uL (130-400); RBC 3.97 10x6/uL (4.00-5.40); RDW 13.4 % (11.5-14.5); WBC 5.5 10x3/uL (4.8-10.8)
[2018-10-19 09:32] LABS: ALBUMIN 3.9 g/dL (3.4-5.0); ALKALINE PHOSPHATASE 64 U/L (46-116); ALT (SGPT) 50 U/L (10-68); BILIRUBIN - TOTAL 0.73 mg/dL (0.2-1.3); CALC OSMOLALITY 256 mosm/kg (275-300); CARBON DIOXIDE 24.3 mmol/L (21.0-32.0); CHLORIDE - SERUM 93 mmol/L (98-107); CREATININE - SERUM 0.6 mg/dL (0.6-1.3); GLUCOSE 158 mg/dL (74-106); POTASSIUM - SERUM 4.2 mmol/L (3.5-5.1); PROTEIN - SERUM 7.5 g/dL (6.4-8.2); SODIUM 127 mmol/L (136-145); UREA NITROGEN 9 mg/dL (7-18); eGFR NON AFRICAN AMERICAN > 90 mL/min (90-120)
[2018-10-19 09:35] LABS: AMYLASE - SERUM 32 U/L (25-115); LIPASE 123 U/L (73-393); TROPONIN-I < 0.017 ng/mL (0.000-0.060)
[2018-10-19 10:04] LABS: APPEARANCE CLEAR (CLEAR); BILIRUBIN NEGATIVE (NEGATIVE); COLOR STRAW (YELLOW); GLUCOSE NEGATIVE (NEGATIVE); KETONE NEGATIVE (NEGATIVE); NITRITE NEGATIVE (NEGATIVE); PROTEIN TRACE mg/dL (NEGATIVE); SPECIFIC GRAVITY 1.005 (1.005-1.020); UROBILINOGEN NORMAL (NORMAL)
[2018-10-19 10:05] LABS: RED CELLS - URINE 0-5 /hpf (0-5); WHITE CELLS - URINE 0-5 /hpf (0-5)
[2018-10-19 10:06] LABS: BACTERIA FEW /hpf (NONE SEEN); EPITHELIAL CELLS NSEEN /hpf (0-5)
[2018-10-19 10:24] VITALS: BP 141/83
== END 2018-10-19 10:25 | disposition home or self-care (01) ==
LOC: D.ER 08:50
PROVIDERS: Family Medicine
DX: E87.1 Hypo-osmolality and hyponatremia (principal)

== ENCOUNTER 2018-10-20 23:19 | Emergency (ER) | payer MEDICARE, OTHER ==
[2018-10-20 23:32] VITALS: BMI 20.4
[2018-10-21 00:33] LABS: BASOPHILS 0.1 % (0-2); EOSINOPHILS 1.2 % (0-7); HEMATOCRIT 32.5 % (36.0-48.0); HEMOGLOBIN 11.7 g/dL (12-16); IMMATURE GRANULOCYTES 0.1 % (0-5); LYMPHOCYTES 12.7 % (15-50); MCH 31.5 pg (26.0-34.0); MCV 87.4 fL (80.0-100.0); MONOCYTES 9.5 % (2-11); NEUTROPHILS 76.4 % (40-80); PLATELET COUNT 250 10x3/uL (130-400); RBC 3.72 10x6/uL (4.00-5.40); RDW 13.4 % (11.5-14.5)
[2018-10-21 00:36] LABS: WBC 7.5 10x3/uL (4.8-10.8)
[2018-10-21 00:46] LABS: ALBUMIN 3.3 g/dL (3.4-5.0); ALKALINE PHOSPHATASE 50 U/L (46-116); ALT (SGPT) 54 U/L (10-68); BILIRUBIN - TOTAL 0.89 mg/dL (0.2-1.3); CALC OSMOLALITY 255 mosm/kg (275-300); CALCIUM 8.4 mg/dL (8.5-10.1); CARBON DIOXIDE 23.4 mmol/L (21.0-32.0); CHLORIDE - SERUM 95 mmol/L (98-107); CREATININE - SERUM 0.5 mg/dL (0.6-1.3); PROTEIN - SERUM 6.5 g/dL (6.4-8.2); SODIUM 128 mmol/L (136-145); UREA NITROGEN 10 mg/dL (7-18); eGFR NON AFRICAN AMERICAN > 90 mL/min (90-120)
[2018-10-21 00:56] LABS: GLUCOSE 94 mg/dL (74-106)
[2018-10-21 01:10] LABS: APPEARANCE CLEAR (CLEAR); BILIRUBIN NEGATIVE (NEGATIVE); COLOR COLORLESS (YELLOW); GLUCOSE NEGATIVE (NEGATIVE); KETONE NEGATIVE (NEGATIVE); NITRITE NEGATIVE (NEGATIVE); PROTEIN NEGATIVE (NEGATIVE); SPECIFIC GRAVITY 1.005 (1.005-1.020); UROBILINOGEN NORMAL (NORMAL)
[2018-10-21] MEDS ORDERED: THERMOTABS 1 GM1 GM PO (01:41)
[2018-10-21 02:09] VITALS: BP 125/49
== END 2018-10-21 02:05 | disposition home or self-care (01) ==
LOC: D.ER 23:19
PROVIDERS: Emergency Medicine
DX: T83.018A Breakdown (mechanical) of other urinary catheter, initial encounter (principal)

== ENCOUNTER 2018-10-22 16:02 | Emergency (ER) | payer MEDICARE, OTHER ==
[~2018-10-22] VITALS: Ht 170.2 cm; Wt 59.1 kg
[2018-10-22 16:09] VITALS: Ht 170.2 cm; Wt 59.1 kg
[2018-10-22 16:52] LABS: APPEARANCE CLEAR (CLEAR); BILIRUBIN NEGATIVE (NEGATIVE); COLOR STRAW (YELLOW); GLUCOSE NEGATIVE (NEGATIVE); KETONE NEGATIVE (NEGATIVE); NITRITE NEGATIVE (NEGATIVE); PROTEIN NEGATIVE (NEGATIVE); UROBILINOGEN NORMAL (NORMAL)
[2018-10-22 19:01] VITALS: BP 184/79
== END 2018-10-22 19:01 | disposition home or self-care (01) ==
LOC: D.ER 16:02
PROVIDERS: Emergency Medicine
DX: T83.038A Leakage of other urinary catheter, initial encounter (principal)

== ENCOUNTER 2018-10-25 09:18 | Emergency (ER) | payer MEDICARE, OTHER ==
[~2018-10-25] VITALS: Ht 170.2 cm; Wt 54.5 kg
[2018-10-25 09:22] VITALS: Ht 170.2 cm; Wt 54.5 kg
[2018-10-25 09:45] LABS: HEMATOCRIT 33.4 % (36.0-48.0); HEMOGLOBIN 11.8 g/dL (12-16); LYMPHOCYTES 22.9 % (15-50); MCH 32.1 pg (26.0-34.0); MCHC 35.3 g/dL (31.0-37.0); MCV 90.8 fL (80.0-100.0); MEAN PLATELET VOLUME 8.5 fL (7.4-10.4); NEUTROPHILS 66.3 % (40-80); PLATELET COUNT 249 10x3/uL (130-400); RBC 3.68 10x6/uL (4.00-5.40); RDW 13.8 % (11.5-14.5); WBC 4.5 10x3/uL (4.8-10.8)
[2018-10-25 10:05] LABS: ALBUMIN 3.6 g/dL (3.4-5.0); ALKALINE PHOSPHATASE 48 U/L (46-116); ALT (SGPT) 52 U/L (10-68); BILIRUBIN - TOTAL 0.57 mg/dL (0.2-1.3); CALC OSMOLALITY 258 mosm/kg (275-300); CALCIUM 8.6 mg/dL (8.5-10.1); CARBON DIOXIDE 25.1 mmol/L (21.0-32.0); CHLORIDE - SERUM 97 mmol/L (98-107); CREATININE - SERUM 0.5 mg/dL (0.6-1.3); GLUCOSE 103 mg/dL (74-106); POTASSIUM - SERUM 3.4 mmol/L (3.5-5.1); PROTEIN - SERUM 6.5 g/dL (6.4-8.2); SODIUM 130 mmol/L (136-145); UREA NITROGEN 7 mg/dL (7-18); eGFR NON AFRICAN AMERICAN > 90 mL/min (90-120)
[2018-10-25 11:14] VITALS: BP 137/68
== END 2018-10-25 11:15 | disposition home or self-care (01) ==
LOC: D.ER 09:18
PROVIDERS: Family Medicine
DX: E87.6 Hypokalemia (principal); R19.4 Change in bowel habit

== ENCOUNTER 2018-10-28 00:58 | Emergency (ER) | payer MEDICARE, OTHER ==
[~2018-10-28] VITALS: Ht 170.2 cm; Wt 45.5 kg
[2018-10-28 01:02] VITALS: Ht 170.2 cm; Wt 45.5 kg
[2018-10-28 01:27] LABS: BASOPHILS 0.7 % (0-2); EOSINOPHILS 1.9 % (0-7); HEMATOCRIT 33.3 % (36.0-48.0); HEMOGLOBIN 11.5 g/dL (12-16); IMMATURE GRANULOCYTES 0.2 % (0-5); LYMPHOCYTES 30.2 % (15-50); MCH 31.3 pg (26.0-34.0); MCHC 34.5 g/dL (31.0-37.0); MCV 90.5 fL (80.0-100.0); MEAN PLATELET VOLUME 8.8 fL (7.4-10.4); MONOCYTES 10.9 % (2-11); NEUTROPHILS 56.1 % (40-80); PLATELET COUNT 236 10x3/uL (130-400); RBC 3.68 10x6/uL (4.00-5.40); RDW 13.7 % (11.5-14.5); WBC 5.7 10x3/uL (4.8-10.8)
[2018-10-28 01:40] LABS: ALBUMIN 3.4 g/dL (3.4-5.0); ALKALINE PHOSPHATASE 43 U/L (46-116); ALT (SGPT) 46 U/L (10-68); BILIRUBIN - TOTAL 0.45 mg/dL (0.2-1.3); CALC OSMOLALITY 264 mosm/kg (275-300); CALCIUM 9.2 mg/dL (8.5-10.1); CHLORIDE - SERUM 100 mmol/L (98-107); CREATININE - SERUM 0.5 mg/dL (0.6-1.3); GLUCOSE 88 mg/dL (74-106); POTASSIUM - SERUM 3.5 mmol/L (3.5-5.1); PROTEIN - SERUM 6.5 g/dL (6.4-8.2); SODIUM 132 mmol/L (136-145); UREA NITROGEN 14 mg/dL (7-18); eGFR NON AFRICAN AMERICAN > 90 mL/min (90-120)
[2018-10-28 01:41] LABS: APPEARANCE CLEAR (CLEAR); BILIRUBIN NEGATIVE (NEGATIVE); COLOR YELLOW (YELLOW); GLUCOSE NEGATIVE (NEGATIVE); KETONE NEGATIVE (NEGATIVE); NITRITE NEGATIVE (NEGATIVE); PROTEIN NEGATIVE (NEGATIVE); UROBILINOGEN NORMAL (NORMAL)
[2018-10-28 01:50] LABS: LIPASE 164 U/L (73-393); THYROID STIMULATING HORMONE 2.36 uIU/mL (0.36-3.74); TROPONIN-I < 0.017 ng/mL (0.000-0.060)
[2018-10-28 03:21] VITALS: BP 137/75
== END 2018-10-28 03:22 | disposition home or self-care (01) ==
LOC: D.ER 00:58
PROVIDERS: Family Medicine
DX: K52.9 Noninfective gastroenteritis and colitis, unspecified (principal)

== ENCOUNTER 2018-10-30 04:53 | Emergency (ER) | payer MEDICARE, OTHER ==
[~2018-10-30] VITALS: Ht 170.2 cm; Wt 54.5 kg
[2018-10-30 04:58] VITALS: Ht 170.2 cm; Wt 54.5 kg
[2018-10-30 06:05] VITALS: BP 143/66
== END 2018-10-30 06:05 | disposition home or self-care (01) ==
LOC: D.ER 04:53
DX: F41.9 Anxiety disorder, unspecified (principal)

== ENCOUNTER → 2018-10-31 13:42 | Outpatient (CLI) | payer MEDICARE, OTHER ==
[2018-10-30 04:58] VITALS: BMI 18.8
== END | disposition home or self-care (01) ==
LOC: D.RAD 13:42
PROVIDERS: ATTEND Internal Medicine Gastroenterology
DX: K59.00 Constipation, unspecified (principal)

== ENCOUNTER 2018-11-02 14:58 | Emergency (ER) | payer MEDICARE, OTHER ==
[~2018-11-02] VITALS: Ht 170.2 cm; Wt 54.5 kg
[2018-11-02 15:16] VITALS: Ht 170.2 cm; Wt 54.5 kg
[2018-11-02] MEDS ORDERED: MIRALAX17 GM PO (15:19)
[2018-11-02 15:39] LABS: BASOPHILS 0.2 % (0-2); EOSINOPHILS 0.5 % (0-7); HEMATOCRIT 32.2 % (36.0-48.0); HEMOGLOBIN 11.1 g/dL (12-16); IMMATURE GRANULOCYTES 0.2 % (0-5); LYMPHOCYTES 15.5 % (15-50); MCH 31.3 pg (26.0-34.0); MCHC 34.5 g/dL (31.0-37.0); MCV 90.7 fL (80.0-100.0); MEAN PLATELET VOLUME 9.3 fL (7.4-10.4); MONOCYTES 7.9 % (2-11); NEUTROPHILS 75.7 % (40-80); PLATELET COUNT 198 10x3/uL (130-400); RBC 3.55 10x6/uL (4.00-5.40); RDW 13.7 % (11.5-14.5); WBC 8.2 10x3/uL (4.8-10.8)
[2018-11-02 15:56] LABS: ALBUMIN 3.5 g/dL (3.4-5.0); ALKALINE PHOSPHATASE 47 U/L (46-116); ALT (SGPT) 41 U/L (10-68); BILIRUBIN - TOTAL 0.35 mg/dL (0.2-1.3); CALC OSMOLALITY 256 mosm/kg (275-300); CALCIUM 8.4 mg/dL (8.5-10.1); CARBON DIOXIDE 24.6 mmol/L (21.0-32.0); CHLORIDE - SERUM 95 mmol/L (98-107); CREATININE - SERUM 0.5 mg/dL (0.6-1.3); GLUCOSE 96 mg/dL (74-106); POTASSIUM - SERUM 3.7 mmol/L (3.5-5.1); PROTEIN - SERUM 6.6 g/dL (6.4-8.2); SODIUM 128 mmol/L (136-145); UREA NITROGEN 12 mg/dL (7-18); eGFR NON AFRICAN AMERICAN > 90 mL/min (90-120)
[2018-11-02 16:50] VITALS: BP 157/67
== END 2018-11-02 16:56 | disposition home or self-care (01) ==
LOC: D.ER 14:58
PROVIDERS: Family Medicine
DX: F41.9 Anxiety disorder, unspecified (principal); K59.09 Other constipation; R45.5 Hostility

== ENCOUNTER 2018-11-09 16:14 | Inpatient (IN) | payer MEDICARE ==
[~2018-11-09] VITALS: Ht 170.2 cm; Wt 56.7 kg
--- NOTE | 2018-11-09 16:51 | NUR ---
PT PRESENTS TO ED VIA [facility] AFTER LEAVING [facility] TODAY FOR C/O URINARY RETENTION WITH [address] FROM [facility] (NOT KNOWN AT THIS TIME WHO THE PROVIDER IS THAT ORDERED INDWELLING CATHETER) PT REPORTS THE CATHETER IS BECAUSE SHE IS UNABLE TO SPONTANEOUSLY VOID. PT ALSO C/O CHRONIC ABDOMINAL PAIN AND CONSTIPATION. SHE STATES "I JUST DON'T WANT TO LIVE ANYMORE BECAUSE OF ALL THIS PAIN AND I'M HAVING A LOT OF PROBLEMS WITH MY SON." SCREENER IS CALLED FOR PT UPON ARRIVAL TO ED. PT IS CHANGED INTO BLUE SCRUBS AND HAIR PINS REMOVED FROM HAIR. ALL BELONGINGS ARE PLACED IN BELONGING BAG - RED WHITE AND BLUE DRESS, PAIR OF BROWN/BLACK SANDALS, SWEATER AND HAIR BARRETTE AND BAG IS PLACED IN SECURE AREA AT THE NURSE'S STATION. WILL CONTINUE TO MONITOR.
[2018-11-09 16:53] LABS: BASOPHILS 0.2 % (0-2); HEMATOCRIT 30.9 % (36.0-48.0); HEMOGLOBIN 10.5 g/dL (12-16); IMMATURE GRANULOCYTES 0.2 % (0-5); MCV 91.2 fL (80.0-100.0); MEAN PLATELET VOLUME 8.8 fL (7.4-10.4); MONOCYTES 9.7 % (2-11); NEUTROPHILS 66.9 % (40-80); PLATELET COUNT 197 10x3/uL (130-400); RBC 3.39 10x6/uL (4.00-5.40); RDW 13.5 % (11.5-14.5); WBC 5.1 10x3/uL (4.8-10.8)
--- NOTE | 2018-11-09 17:05 | NUR ---
DR. TSAI NOTIFIED AND REVIEWED PT'S BEHAVIOR AND ASSESSMENT RESULTS. PT IS A LOW RISK PER DR. TSAI. DR. TSAI STATED TO GIVE PT RESOURCES TO PT AT THIS TIME. NO FURTHERS ORDERS AT THIS TIME. RESOURCES REVIEWED WITH PT AND SHE VERBALIZED UNDERSTANDING.
[2018-11-09 17:06] LABS: UDS - AMPHET NEGATIVE QUAL (NEGATIVE); UDS - BARB NEGATIVE QUAL (NEGATIVE); UDS - BENZO NEGATIVE QUAL (NEGATIVE); UDS - COCAINE NEGATIVE QUAL (NEGATIVE); UDS - OPIATE NEGATIVE QUAL (NEGATIVE); UDS - PCP NEGATIVE QUAL (NEGATIVE); UDS - THC NEGATIVE QUAL (NEGATIVE)
--- NOTE | 2018-11-09 17:08 | NUR ---
PT AGREES TO BEING ADMITTED TO LONG-TERM IF MEDICALLY CLEARED. CHARGE NURSE AND ATTENDING AWARE.
[2018-11-09 17:13] LABS: ACETAMINOPHEN 0.7 ug/mL (10.0-30.0); ALBUMIN 3.2 g/dL (3.4-5.0); ALKALINE PHOSPHATASE 46 U/L (46-116); ALT (SGPT) 39 U/L (10-68); CALC OSMOLALITY 255 mosm/kg (275-300); CALCIUM 8.3 mg/dL (8.5-10.1); CARBON DIOXIDE 24.8 mmol/L (21.0-32.0); CHLORIDE - SERUM 97 mmol/L (98-107); CREATININE - SERUM 0.5 mg/dL (0.6-1.3); GLUCOSE 98 mg/dL (74-106); MAGNESIUM - SERUM 1.9 mg/dL (1.8-2.4); POTASSIUM - SERUM 3.2 mmol/L (3.5-5.1); PROTEIN - SERUM 6.1 g/dL (6.4-8.2); SODIUM 128 mmol/L (136-145); UREA NITROGEN 11 mg/dL (7-18); eGFR NON AFRICAN AMERICAN > 90 mL/min (90-120)
[2018-11-09 17:21] LABS: APPEARANCE CLEAR (CLEAR); BILIRUBIN NEGATIVE (NEGATIVE); COLOR YELLOW (YELLOW); EPITHELIAL CELLS OCC /hpf (0-5); GLUCOSE NEGATIVE (NEGATIVE); KETONE NEGATIVE (NEGATIVE); NITRITE POSITIVE (NEGATIVE); PROTEIN NEGATIVE (NEGATIVE); RED CELLS - URINE OCC /hpf (0-5); UROBILINOGEN NORMAL (NORMAL); WHITE CELLS - URINE 0-5 /hpf (0-5)
[2018-11-09 17:22] LABS: BACTERIA MANY /hpf (NONE SEEN)
--- NOTE | 2018-11-09 17:47 | NUR ---
pt came to desk and states that she thought of something she has to live for. Pt states, "I'm supposed to start volunteer work with the [employer] and visit people who don't have anyone and I'm really looking forward to that." pt also requests something to eat and drink.
--- NOTE | 2018-11-09 18:35 | NUR ---
PT AMBULATES TO BR WITH STEADY GAIT. REPORT CALLED TO [facility] IN [place]. SPOKE WITH SAROJ HOFFMAN. ACCEPTING DR IS SKINNY. PT SIGNS CONSENT TO TRANSFER. [facility] CONTACTED FOR TRANSFER. ETA 1 HOUR.
[2018-11-09 20:00] VITALS: BP 137/74
[2018-11-09 21:00] VITALS: BP 135/79
[2018-11-09] MEDS ORDERED: HYDROCODON-ACE1 EAC7 PO (22:17)
[2018-11-09] MEDS ORDERED: VALIUM5 MG PO (22:18)
[2018-11-09] MEDS ORDERED: LINZESS145 MCG PO (22:18)
[2018-11-09] MEDS ORDERED: K-DUR20 MEQ PO (22:18)
[2018-11-09] MEDS ORDERED: KEFLEX500 MG PO ×2 (22:19→22:20)
--- NOTE | 2018-11-10 00:02 | NUR ---
PATIENT ARRIVED AT 21:00 FROM OUR E.D. PATIENT HAD MADE SUICIDAL STATEMENTS AT HER DOCTOR'S OFFICE AND THE SENT HER TO OUR E.D. PATIENT REFUSED AT FIRST TO SIGN HERSELF IN TO LONG-TERM, DR TSAI WAS CALLED AND 72 HOUR HOLD WAS ARTHORIZED, PATIENT DID SIGN HERSELF INTO LONG-TERM LATER, PATIENT IS MANIC AT TIMES AND HYPERVERBAL. FAMILY WAS CALLED AND CODE WORD IS 'CHEETA' CODE STATUS IS FULL CODE, PATIENT HAS A PUGA CATH. PATIENT AMBULATES INDEPENDANTLY, PATIENT IS SLEEPING NOW QUIETLY, WILL CONTINUE TO MONITOR.
[2018-11-10 00:08] LABS: APPEARANCE CLEAR (CLEAR); COLOR YELLOW (YELLOW)
[2018-11-10 00:09] LABS: BILIRUBIN NEGATIVE (NEGATIVE); GLUCOSE NEGATIVE (NEGATIVE); KETONE NEGATIVE (NEGATIVE); NITRITE NEGATIVE (NEGATIVE); PROTEIN TRACE mg/dL (NEGATIVE); UROBILINOGEN NORMAL (NORMAL)
[2018-11-10 00:10] LABS: BACTERIA FEW /hpf (NONE SEEN); EPITHELIAL CELLS 0-5 /hpf (0-5); RED CELLS - URINE 0-5 /hpf (0-5)
[2018-11-10 00:15] VITALS: BP 135/79; BMI 20.4
[2018-11-10 07:43] LABS: CHOL - HDL RATIO 2.2 ratio (2.3-4.1); LDL-HDL RATIO 1.1 ratio (1.5-3.5); THYROID STIMULATING HORMONE 2.71 uIU/mL (0.36-3.74)
[2018-11-10 08:01] VITALS: BMI 20.4
[2018-11-10 10:25] VITALS: BP 105/45
--- NOTE | 2018-11-10 11:25 | NUR ---
CATHETER PLACEMENT DATE NOTED TO BE 11/04/18.
--- NOTE | 2018-11-10 13:35 | NUR ---
RECEIVED PATIENT IN DINING ROOM AT BREAKFAST TIME, ALERT, RESTLESS, DEMANDING. INTRUSIVE. MEDS ADMIN PER ORDERS WITH COMPLETE MED COMPLIANCE NOTED. COOPERATIVE WITH PLAN OF CARE. CONT POC INCLUDING MEDS ND GROUP THERAPY DIFER
[2018-11-10 14:06] VITALS: Ht 170.2 cm; Wt 56.7 kg
[2018-11-10 20:00] VITALS: BP 123/55
--- NOTE | 2018-11-11 01:50 | NUR ---
B) Patient is alert and oriented to person, place and time, needy with staff at times, wanting someone to do things for her, I) Administered scheduled medications as ordeere, redirected as needed, R) Mediation compliant, constantly wanting the talk to the nurse or the doctor, P) Continue plan of care.
[2018-11-11 06:09] LABS: RAPID PLASMA REAGIN Non Reactive (Non Reactive)
[2018-11-11 06:44] LABS: CALCIUM 8.8 mg/dL (8.5-10.1); CARBON DIOXIDE 27.4 mmol/L (21.0-32.0); CHLORIDE - SERUM 105 mmol/L (98-107); CREATININE - SERUM 0.5 mg/dL (0.6-1.3); GLUCOSE 93 mg/dL (74-106); SODIUM 139 mmol/L (136-145); eGFR NON AFRICAN AMERICAN > 90 mL/min (90-120)
[2018-11-11 06:45] LABS: CALC OSMOLALITY 275 mosm/kg (275-300); POTASSIUM - SERUM 3.7 mmol/L (3.5-5.1); UREA NITROGEN 8 mg/dL (7-18)
[2018-11-11 08:30] VITALS: BP 116/65
--- NOTE | 2018-11-11 12:28 | NUR ---
B) The patient is having a lot of loose stools this am, she did not want to eat breakfast, but she did eat lunch. She is telling each staff member that she is having loose BM's today. She also has a velarde catheter that she is carrying around. I) Provide prescribed meds. R) The patient is compliant with meds and unit milieu. P) Continue POC.
--- NOTE | 2018-11-11 14:23 | PSY ---
PATIENT NAME:ALMA MURPHY MEDICAL RECORD: [id number] : 40 LOCATION:[id number] ADMISSION DATE: 11/09/18 ACCOUNT: [id number] PSYCHIATRIC EVALUATION DATE OF EVALUATION: 11/10/18 IDENTIFYING DATA: The patient is 78 years old and she is admitted to the hospital on a voluntary basis. CHIEF COMPLAINT: Suicidal statements. HISTORY OF PRESENT ILLNESS: The patient made suicidal statements at her primary care office. She did so in a way that was so substantial that the office felt that there was an imminent risk and actually called the price checker. Alma now is back paddling and saying that they just simply overreacted. When in the Emergency Room, she denied that she wanted to hurt herself. The patient denies that she is depressed, but then individually endorses numerous neurovegetative depressive symptoms. She has some legitimate gastrointestinal issues, but she is almost delusionally focused on GI issues and over the past 3 months has been in the Emergency Room every 3 days on average. She says she has to do this because she cannot move her bowels. She denies substance abuse issues. Indeed, she had a negative urine drug screen when she presented to the hospital. PAST MEDICAL HISTORY: Significant for multiple GI problems, a hysterectomy, and an indwelling Aguilar for reasons that are unclear. PAST PSYCHIATRIC HISTORY: Negative by the patient's report. Her outpatient primary care physician has been giving her anxiolytic medications. FAMILY HISTORY: Significant for cardiovascular disease and cancer. ALLERGIES: LISINOPRIL AND POLYSPORIN. CURRENT MEDICATIONS: Include polyethylene glycol, Zantac, BuSpar, potassium, Linzess, Zofran. SOCIAL HISTORY: The patient is . She has 4 children, one of whom is . She is a retired registered nurse. She has no history of drug or alcohol abuse. She was only once, but has been from her for almost 40 years. MENTAL STATUS EXAMINATION: The patient is awake, alert and fully oriented. Her mood is euthymic. Her mood is anxious. Her affect appropriate. Thought processes are circumstantial. Memory, concentration, and abstraction abilities are mildly impaired and she denies any intent to harm herself or others as well as psychotic symptoms. ASSETS: Supportive family members. LIABILITIES: Limited insight. DIAGNOSTIC IMPRESSION: AXIS I: 1. Major depression, severe, recurrent without psychotic features. 2. Somatoform disorder. AXIS II: Cluster C personality traits. AXIS III: Unspecified gastrointestinal issues. AXIS IV: Moderate. AXIS V: Global assessment of functioning is 45. PLAN: At this time, the patient is admitted to the hospital secondary to suicidal statements that are associated with a depressive illness. She is clearly hyperfocused on her gastrointestinal and urinary tract issues to the point that it is bordering delusional. I plan to admit her and observe her symptoms and consult internal medicine. I will also treat her with an antidepressant medication. Clearly, there is an issue when a woman has made almost 30 visits to the ER in 3 months with no findings that required any significant treatment. I do plan to obtain records and will again consult internal medicine and treat her for her underlying depressive symptoms. TRANSINT:[id number] Voice Confirmation ID: [id number] DOCUMENT ID: [id number] MIRTHA TSAI MD at 1423 CC: [id number] DICTATION DATE: 11/10/18 1442 COLOR WORKER: 11/10/18 1503 ADM IN [facility] [id number] [place] [address]
--- NOTE | 2018-11-11 21:32 | NUR ---
PT C/O GAS PAIN AND REQUESTED MED. SIMETHICONE 80 MG ADMIN PO PER ORDERS.
[2018-11-11 21:46] VITALS: BP 133/49
--- NOTE | 2018-11-12 03:19 | NUR ---
B) Patient is alert and oriented to person, place and time, not as hyperverbal as when she arrived yesterday, still very worried about her bowel movements and her Aguilar output, I) Administered scheduled medictions as ordered, redirected as needed, R) medication compliant, up several times during the night, P) Continue plan of care.
--- NOTE | 2018-11-12 10:03 | PN ---
PATIENT:AMANDO MURPHY MEDICAL RECORD: [id number] LOCATION:[facility] [address] ADMISSION DATE: 11/09/18 PROGRESS NOTE DATE OF SERVICE: 11/11/2018 SUBJECTIVE: The patient's case was discussed with staff. She has no new complaint. OBJECTIVE: The patient denies intent to harm herself or others. She had a bowel movement today. ASSESSMENT: 1. Major depression. 2. Somatoform disorder. PLAN: The patient will have her BuSpar discontinued as I do not see it being effective or helpful. I am seriously considering starting her on antipsychotic medication along with the antidepressant because of her delusional thoughts about her bowels and bladder. She ate about half of the meal that was provided to her yesterday. I would like to see her eat better and if she does not have a better day today, I will consider the use of Megace. TRANSINT:[id number] Voice Confirmation ID: [id number] DOCUMENT ID: [id number] MIRTHA TSAI MD at 1003 CC: [id number] DICTATION DATE: 11/11/18 1507 CANDY MAKER HELPER: 11/11/18 1548 ADM IN [facility] [address] [place] [address]
--- NOTE | 2018-11-12 11:11 | NUR ---
PATIENT IS ALERT AND ORIENTED TO PERSON, PLACE AND TIME. PT IS PLEASANT WITH STAFF AND PEERS. PT IS VERY WORRIED ABOUT BOWEL MOVEMENTS, FLUID RESTRICTION, HER PUGA OUTPUT AND COLOR OF THE URINE. OBESSED ABOUT BOWEL MOVEMENTS MEDICATIONS. MEDICATION COMPLIANT. REDIRECT OBESSIVE THOUGHTS NEEDED. CONT PLAN OF CARE.
[2018-11-12 11:40] VITALS: BP 104/61
--- NOTE | 2018-11-12 13:06 | NUR ---
The patient is ambulating all over the day room and dining room. She is exercising as Dr. Frances suggested. She also spoke to Tricia Gan RN and I about using dental floss. Did let her know it is something we do not normally do, but we can ask the program production specialist. Explained to her the reason is because of the string. 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 She also discussed with this nurse that she had rectocele and ever since then she has not been normal and has had a lot of problems with BM's and urine. The patient volunteered this information.
--- NOTE | 2018-11-12 14:45 | NUR ---
The patient did have a neighbor call and ask about her. Spoke to the patient and asked her if it is ok if the neighbor knows she is here and if she may have the code word. The patient said "Yes." but after speaking to the neighbor and letting her know the patient is ok and the code word Also explained to the neighbor, Miss Banuelos that the patient would prefer no one else have the code word or know that she is here. Also let Miss Banuelos know the visitation hours and days. After the phone call the patient said "Oh, I probably should not have let her know anything, she'll tell everyone." The patient did have me call the neighbor and explain that the patient does not feel up to having visitors today. Miss Banuelos verbalized understanding.
--- NOTE | 2018-11-12 14:56 | NUR ---
PATIENT REQUESTED MYLICON 80 MG FOR GAS. PT C/O SHE WAS BLOATED WITH GAS AND COULD NOT HAVE A MOVEMENT DUE TO THE GAS. PT REQUESTED A ANUSOL SUPP DUE TO NOT BEING ABLE TO HAVE A BOWEL MOVEMENT. PT INSERTED SUPP PER SELF. WILL REASSESS Q 1 HOUR FOR EFFECTIVENESS.
[2018-11-12 23:01] VITALS: BP 145/66
--- NOTE | 2018-11-13 00:58 | NUR ---
STARTED BLADDER TRAINING AT 01:00, CLAMPED PUGA CATH. WILL UNCLAMP AT 05:00 FOR 15 MINUTES.
--- NOTE | 2018-11-13 01:06 | NUR ---
B) Patient is alert and oriented to person, place and time, needy and chases after the staff at times, I) Administered scheduled medications as ordered, monitored for safety R) mediation compliant, up several times at night to ask the nurse for something P) Continue plan of care.
[2018-11-13 07:00] VITALS: BP 120/65
--- NOTE | 2018-11-13 08:17 | NUR ---
REC'D PT SITTING IN HALLWAY AWAITING BREAKFAST. NO ACUTE DISTRESS NOTED. PT IS ORIENTED TO PERSON, PLACE AND TIME. PT IS ANXIOUS AND ASKED TO SPEAK WITH OTHER NURSE ABOUT HER PUGA CATH. PT HAS A PUGA CATH WITH YELLOW URINE IN THE BAG. PT CAN NEEDY ABOUT BOWEL MOVEMENTS AND PUGA CATH. AMBULATES. MED COMPLIANT. WILL CONT PLAN OF CARE.
--- NOTE | 2018-11-13 09:38 | NUR ---
PATIENT ASKED ABOUT HER BLADDER TRAINING. PATIENT PUGA CATH UNCLAMPED AT 0200 PER SELF DUE TO HER THINKING 4 HOURS WAS TO LONG FOR BLADDER TRAINING. WILL CONSULT PHYSICIAN FOR BLADDER TRAINING TIMES.
--- NOTE | 2018-11-13 10:24 | NUR ---
NURSE BEGAN BLADDER TRAINING THIS SHIFT AT 10:07. NURSE CLAMPED PUGA CATH AND WILL UNCLAMP AT 10:50 TO OBTAIN A URINE SAMPLE AND RECLAMP UNTIL 12:07. EVERY 2 HOURS BLADDER TRAINING BEGAN. PT C/O AT THIS TIME THAT SHE HAS NOT HAD A BOWEL MOVEMENT AND WANTS SOMETHING TO AID HER IN A BOWEL MOVEMENT. PT HAS LINZESS 145 MCG DAILY. PT HAS DULCOLAX 10 MG DAILY PRN. PATIENT DOES NOT WANT 10 MG OF THE DULCOLAX SHE REQUEST 5 MG OF DULCOLAX. NURSE EXPLAINED THAT THE DOCTOR WOULD HAVE TO CHANGE THE ORDER. PATIENT VERBALZIZED UNDERSTANDING.
--- NOTE | 2018-11-13 12:21 | PN ---
PATIENT:AMANDO MURPHY MEDICAL RECORD: [id number] LOCATION:[facility] ADMISSION DATE: 11/09/18 PROGRESS NOTE DATE OF SERVICE: 11/12/2018 SUBJECTIVE: The patient's case was discussed with staff. She has no new complaint. OBJECTIVE: The patient is in good behavioral control, but extremely somatic and focused purely on somatic issues. She will acknowledge that she is depressed. She is willing to take antidepressant medication, but she believes that there are serious issues with her from a GI standpoint. I am going to start her on 25 mg of Effexor which is obviously a fairly low dose, but given her propensity to have almost delusional thoughts about her physical well-being, I am extra cautious in making sure that she is not having any side effects even mild if possible. TRANSINT:[id number] Voice Confirmation ID: [id number] DOCUMENT ID: [id number] MIRTHA TSAI MD at 1221 CC: [id number] DICTATION DATE: 11/12/18 1027 MOLECULAR BIOLOGIST: 11/12/18 [address] [facility] [address] [place] [address]
--- NOTE | 2018-11-13 13:24 | NUR ---
PATIENT HAD A LARGE LOOSE BOWEL MOVEMENT THIS SHIFT. WILL CONT TO MONITOR.
--- NOTE | 2018-11-13 14:15 | NUR ---
PATIENT REQUESTED ANUSOL 1 SUPP DUE TO PATIENT C/O OF NO BOWEL MOVEMENTS. PATIENT HAS A LARGE BOWEL MOVEMENT THIS SHIFT. KUB ORDERED AND DONE. CONSULT TO BE DONE FOR AND ORDER FOR BMP IN THE A.M.
--- NOTE | 2018-11-13 14:31 | NUR ---
PUGA CATH CLAMPED AND WILL UNCLAMP AT 1630.
--- NOTE | 2018-11-13 16:38 | NUR ---
UNCLAMPED PUGA TUBE. PT STATED "THE PROBLEM I HAVE IS THAT I DONT THINK I WILL BE ABLE TO PEE." THIS NURSE SUGGESTED PATIENT WATCH FROM THE CURRENT AMOUNT OF URINE IN THE BAG UNTIL THE NEXT CLAMP THAT WOULD LET HER KNOW HOW MUCH URINE SHE HAD. WILL CONT BLADDER TRAINING.
--- NOTE | 2018-11-13 16:45 | NUR ---
PATIENT DENIED VISITOR GAMA ISBELL STATING SHE WAS SICK AND DID NOT WANT VISITORS."
--- NOTE | 2018-11-13 17:07 | NUR ---
PATIENT C/O THAT SHE DOES NOT WANT TO LIVE. SHE STATED "HOW LONG DO I HAVE TO HAVE TO HAVE THIS CATHETER?" NURSE STATED THE DOCTOR WANTS HER TO CONTINUE BLADDER TRAINING BEFORE REMOVING THE CATHETER. PT BECAME UPSET STATING SHE COULDNT NOT EAT OR DRINK WHILE HER LINE WAS CLAMPED AND THAT SHE WAS SO DEHYRATED. NURSE TOLD HER SHE HAD REFUSED TO DRINK WATER STATING IT WOULD WASH OUT HER SODIUM. PT STATED SHE HAD BEEN DRINKING WATER. NURSE DID NOT WITNESS THIS. PT STATED SHE WANTED NURSE TO CALL HER SON AND REQUEST SHE BE PUT ON HOSPICE. NURSE EXPLAINED SHE WOULD HAVE TO SPEAK WITH THE DOCTOR ON WEDNESDAY. PATIENT VERBALIZIED UNDERSTANDING. NURSE OFFERED PATIENT CARBONATED DRINKS TO REPLACE WATER THAT THE PATIENT REFUSED. PATIENT DID NOT DRINK CARBONATED BEVARAGES. PATIENT REPORTED TO T THAT STAFF TOLD HER SHE COULD NOT EAT OR DRINK WHILE HER CATHETER WAS CLAMPED. THIS NURSE AND STAFF DID NOT REFUSE PATIENT FOOD OR DRINKS. STAFF HAS BEEN OFFERING PATIENT FOOD AND DRINKS AND PATIENT REFUSED. WILL REPORT TO ONCOMING SHIFT.
--- NOTE | 2018-11-13 18:13 | NUR ---
PATIENT REQUESTED A HOSPICE CONSULT. DR. TSAI NOTIFIED. ORDER FOR HOSPICE CONSULT IN COMPUTER.
--- NOTE | 2018-11-13 18:15 | NUR ---
PATIENT REQUESTED TO SPEAK WITH CHAIRMAN AND CEO. CALLED CHAIRMAN AND CEO AND CHAIRMAN AND CEO IS AWARE OF REQUEST.
--- NOTE | 2018-11-13 18:18 | NUR ---
PATIENT IS CURRENTLY SPEAKING WITH PAMPHLET DISTRIBUTOR. PATIENT HAS BEEN REQUESTING DIFFERENT ITEMS FOR HER BOWEL AND BLADDER. DR. AMADOR ORDERED X-RAY, LABS AND GI CONSULT. PT DID RECEIVE PRN ANUSOL SUPP PER PATIENT REQUEST. ALL ORDERS IN THE COMPUTER AND DOCTORS AWARE. PT IS CALM YET PACES IN CIRCLES FOR LENGTHS AT A TIME. NO ACUTE DISTRESS NOTED. PT DID BEGIN EFFEXOR 25 MG DAILY THIS SHIFT. NO S/SX NOTED FROM MEDICATION. PATIENT REFUSED 1830 CATHATER CLAMP. PUGA OUTPUT AT THIS TIME IS 500 ML. WILL CONT PLAN OF CARE. OTHER NURSE SPOKE TO SON IN REGARDS TO PATIENT STATING SHE DID NOT HAVE A COMFORTABLE CHAIR. SON ASKED NURSE IF WE COULD ACCOMMODATE HER. NURSE EXPLAINED STAFF OFFERED PATIENT A RECLINER CHAIR AND PATIENT REFUSED. EXPLAINED TO SON AT THE TIME THE COUCH WAS OCCUPIED AT THE TIME. WE WOULD SEARCH FOR ANOTHER RECLINER CHAIR AND OFFER IT TO HER. SON VERBALIZIED UNDERSTANDING AND THANKED US. WILL CONT PLAN OF CARE.
--- NOTE | 2018-11-13 19:49 | NUR ---
RECEIVED IN DAYROOM. SITTING IN A RECLINER OFF TO HERSELF WATCHING TV. CALM AND COOPERATIVE WITH CARE AND ASSESSMENT. ENCOURAGE TO EXPRESS NEEDS. CONTINUES TO SIT QUIETLY WATCHING TV. CONTINUE PLAN OF CARE
[2018-11-13 20:08] VITALS: BP 164/71
[2018-11-14 07:00] VITALS: BP 125/66
[2018-11-14 07:07] LABS: CALC OSMOLALITY 261 mosm/kg (275-300); CALCIUM 8.5 mg/dL (8.5-10.1); CARBON DIOXIDE 23.8 mmol/L (21.0-32.0); CHLORIDE - SERUM 97 mmol/L (98-107); CREATININE - SERUM 0.5 mg/dL (0.6-1.3); GLUCOSE 108 mg/dL (74-106); POTASSIUM - SERUM 3.6 mmol/L (3.5-5.1); SODIUM 131 mmol/L (136-145); UREA NITROGEN 7 mg/dL (7-18); eGFR NON AFRICAN AMERICAN > 90 mL/min (90-120)
--- NOTE | 2018-11-14 15:07 | PN ---
PATIENT:AMANDO MURPHY MEDICAL RECORD: [id number] LOCATION:[facility] ADMISSION DATE: 11/09/18 PROGRESS NOTE DATE OF SERVICE: 11/13/2018 SUBJECTIVE: The patient's case was discussed with staff. She has no new complaint. OBJECTIVE: The patient is in good behavioral control and has tolerated her initial dose of Effexor well. She continues to be extremely somatic almost to the point of an obsession with her bowels and bladder. ASSESSMENT: Major depression. PLAN: The patient will be maintained on current medicines, which I have reviewed. Both supportive and educational interventions were made. TRANSINT:[id number] Voice Confirmation ID: [id number] DOCUMENT ID: [id number] MIRTHA TSAI MD at 1507 CC: [id number] DICTATION DATE: 11/13/18 1251 IC DESIGNER STANDARD CELLS: 11/13/18 1524 ADM IN [facility] [address] [place] [address]
--- NOTE | 2018-11-14 18:00 | NUR ---
IS ORIENTED X 3.OBSESSES OVER BOWELS.REFUSED BREAKFAST AND LUNCH TODAY BUT WAS AT DINNING TABLE EARLY THIS EVENING AND DID EAT.WOULD NOT EAT THIS AM BECAUSE SHE SAID SHE FELT TOO FULL.ALSO C/0 STOMACH HURTING,A BURNING PAIN.DR PRIDE AWARE.IS COMPLIANT WITH MEDS.AMBULATES WITH A STEADY GAIT.NO PACING OBSERVED TODAY.KEEPS TO SELF.WILL CONTINUE WITH PLAN OF CARE,MONITOR FOR CHANGES AND SAFETY.
[2018-11-14 20:15] VITALS: BP 160/63
--- NOTE | 2018-11-14 21:50 | NUR ---
B.) Patient is alert and oriented X3. I.) Provide PM medications. Empty Aguilar Catheter. R.) Compliant with medications. 600ML emptied from catheter. P.) Continue Plan of Care
[2018-11-15 07:00] VITALS: BP 174/76
--- NOTE | 2018-11-15 08:09 | NUR ---
PT IS VERY ATTENTION SEEKING AT THIS TIME. PT IS VERY DEMANDING. PT OFFERED NEEDS REQUESTED. PT REFUSES ALL NEEDS AT THIS TIME. PT IS YELLING AND SCREAMING OUT AT STAFF. " I'M GOING TO , MY SON IS GOING MARY OF ALL YOU." PT REASSURED V/S ARE STABLE. MD AWARE OF REQUEST. STAFF TRIED ATTEMPT TO CALM OT DOWN. PT UNABLE CALM DOWN OR REDIRECT AT THIS TIME. PRN ATIVAN 0.5MG IM GIVEN PER ORDER FOR PT'S BEHAVIORS AND ANXIETY. THIS NURSE CALLED AND SPOKE THIS NURSE SPOKE WITH PT'S SON PER PT REQUEST. WHEN SPEAKING WITH SON JASPREET, JASPREET STATED " I AM AWARE OF MY MOMS BEHAVIORS, I'M GLAD SOMEOME SEEN IT BUT ME." JASPREET STATES " MY MOM DOES IT AT HOME, WHEN SHE DOESNT GET WANT SHE WANTS. SHE BECOMES VERY UPSET. YELLS AND SCREAMS, CRIES OUT IM ABOUT GOING TO ." JASPREET STATES " I JUST LET HER WEAR HERSELF OUT AND THEN SHE WILL FINALLY TAKE A NAP AND SHE WAKES UP IN BEETER MOOD." PT SON JASPREET STATES " I DONT KNOW WHAT TO DO WITH HER. SHE DOES NOT NEED TO BE HOME ALONE. SHE CAN NOT PROVIDE PROPER CARE FOR HERSELF AT HOME." THIS NURSE EXPLAINED TO PT'S SON THAT THE SAWMILLING OPERATOR WILL HELP WITH DISCHARGE PLANNING." JASPREET ALSO REQUESTED DR. TSAI TO CONTACT HIM REGARDING HIS MOMS BEHAVIORS AND CARE at . NOTE WILL BE LEFT FOR DR. TSAI REGARDING SON'S REQUEST.
--- NOTE | 2018-11-15 09:05 | NUR ---
PT IS RESTING IN RECLINING CHAIR AT THIS TIME. PRN MED EFFECTIVE AT THIS TIME. WILL CPOC.
--- NOTE | 2018-11-15 14:50 | NUR ---
PT CONTINUES TO THROW SELF IN THE FLOOR, WITNESSED BY MULTIPLE STAFF MEMEBERS.
--- NOTE | 2018-11-15 14:54 | PN ---
PATIENT:AMANDO MURPHY MEDICAL RECORD: [id number] LOCATION:[facility] ADMISSION DATE: 11/09/18 PROGRESS NOTE DATE OF SERVICE: 11/14/2018 SUBJECTIVE: The patient's case was discussed with staff. She has no new complaint. OBJECTIVE: The patient denies any thoughts of harming herself or others. She says she has no reason to be here psychiatrically, does not want any psychiatric help, and does not feel that any of the symptoms she is having are related to any underlying mental or emotional disorder. She insists that all of her symptoms are entirely medical and physical and that she is frustrated and angry because she does not feel that "anybody" is helping her. ASSESSMENT: Major depression. PLAN: The patient is not suicidal. I offered her an opportunity to be discharged or transferred to another facility if she thinks that would meet her needs better, but she declined and is angry. There clearly is some underlying medical pathology, but she is almost ruminatively obsessively focused upon her urinary tract and colon. I have spoken about her condition to Dr. Frances and took strong exception to her feeling that there is no one is trying to address her medical needs. This woman has been to the Emergency Room literally more than 2 dozen times in recent weeks. Every effort has been made to find out what is wrong and help her. I am going to increase her Effexor slightly. She did tolerate the initial dose well. I will meet with her and the treatment team tomorrow and discuss what options are available. Certainly, if she feels there is no reason to be here and she is not being helped, we will naturally discharge her. I would regret that, I think she is in serious distress and needs to be treated for psychiatric symptoms. TRANSINT:[id number] Voice Confirmation ID: [id number] DOCUMENT ID: [id number] MIRTHA TSAI MD at 1454 CC: [id number] DICTATION DATE: 11/14/182018 GRIEVANCE AND APPEALS COORDINATOR: 11/14/18 [address] [facility] [address] [place] [address]
[2018-11-15 17:02] LABS: ALBUMIN 3.8 g/dL (3.4-5.0); ALKALINE PHOSPHATASE 55 U/L (46-116); ALT (SGPT) 31 U/L (10-68); BILIRUBIN - TOTAL 0.99 mg/dL (0.2-1.3); CALC OSMOLALITY 244 mosm/kg (275-300); CARBON DIOXIDE 24.3 mmol/L (21.0-32.0); CHLORIDE - SERUM 88 mmol/L (98-107); CREATININE - SERUM 0.5 mg/dL (0.6-1.3); GLUCOSE 124 mg/dL (74-106); POTASSIUM - SERUM 3.6 mmol/L (3.5-5.1); PROTEIN - SERUM 6.9 g/dL (6.4-8.2); SODIUM 122 mmol/L (136-145); THYROID STIMULATING HORMONE 2.25 uIU/mL (0.36-3.74); UREA NITROGEN 7 mg/dL (7-18); eGFR NON AFRICAN AMERICAN > 90 mL/min (90-120)
[2018-11-15 20:00] VITALS: BP 123/58
--- NOTE | 2018-11-15 20:56 | NUR ---
RECEIVED IN HALLWAY. LAYING IN A RECLINER OUTSIDE OF NURSES STATION. CALM AND COOPERATIVE WITH CARE AND ASSESSMENT. NO STATEMENTS OF SELF HARM MADE. ENCOURAGE TO EXPRESS NEEDS. CONTINUES TO REST ING RECLINER OUTSIDE OF NURSES STATION. CONTINUE PLAN OF CARE
--- NOTE | 2018-11-16 03:42 | NUR ---
ELLIOT NOTE FROM 11/15. ELLIOT SPOKE WITH PT'S SON TO DISCUSS DISCHARGE PLANNING NEEDS. ELLIOT STATED SINCE PT IS ORIENTED SHE CAN MAKE HER OWN DECISIONS. ELLIOT STATED SHE MIGHT BENEFIT FROM A HIGHER LEVEL OF CARE BUT WOULD HAVE TO CONSENT TO GO. ELLIOT GAVE PT'S SON RESOURCES ON DIFFERENT LEVELS OF CARE AND NUMBERS TO COMPARE PRICES. ELLIOT ALSO REFERRED HIM TO [employer] FOR CONSULTATION ON HOW TO HANDLE PT'S FINANCES. PT'S SON VERBALIZED UNDERSTANDING OF CONVERSATION. ELLIOT REPORTED TO MD PT'S SON WOULD LIKE TO HAVE A PHONE CALL TO DISCUSS PT'S CONDITION.
[2018-11-16 09:39] VITALS: BP 142/72
--- NOTE | 2018-11-16 10:00 | NUR ---
RECEIVED PATIENT IN DINING ROOM FOR B'FAST, ALERT, CALM, COOPERATIVE. MEDS ADMIN PER ORDERS. PT TOOK MEDS EXCEPT DEPAKOTE, WHICH SHE REFUSED. CONT POC INCLUDING MEDS AND GROUP THERAPY, ENCOURAGING COMPLETE MED COMPLIANCE.
--- NOTE | 2018-11-16 15:16 | PN ---
PATIENT:AMANDO MURPHY MEDICAL RECORD: [id number] LOCATION:[facility] ADMISSION DATE: 11/09/18 PROGRESS NOTE DATE OF SERVICE: 11/15/2018 SUBJECTIVE: The patient's case was discussed with staff. She has no new complaint. OBJECTIVE: The patient is in good behavioral control, but somewhat attention seeking and very somatically focused. I had an excellent longitudinal discussion about her with her son who lives in [place]. He gave me history that convinces me that she may well be an undiagnosed bipolar type 2. She certainly has been chronically depressed throughout her adult life. I am going to start this patient on Depakote for its mood stabilizing properties. I am going to increase the Effexor for its antidepressant effect and I am going to start her on an appetite stimulant since she did not eat yesterday. TRANSINT:[id number] Voice Confirmation ID: [id number] DOCUMENT ID: [id number] MIRTHA TSAI MD at 1516 CC: [id number] DICTATION DATE: 11/15/18 1630 BROWNFIELD REDEVELOPMENT SPECIALIST: 11/15/18 1859 ADM IN [facility] [address] [place] [id number]
[2018-11-16] MEDS ORDERED: EFFEXOR25 MG PO (18:23)
[2018-11-16 18:27] LABS: CALCIUM 8.6 mg/dL (8.5-10.1); CARBON DIOXIDE 23.3 mmol/L (21.0-32.0); GLUCOSE 110 mg/dL (74-106)
[2018-11-16 18:31] LABS: CALC OSMOLALITY 238 mosm/kg (275-300); CREATININE - SERUM 0.7 mg/dL (0.6-1.3); POTASSIUM - SERUM 4.6 mmol/L (3.5-5.1); UREA NITROGEN 15 mg/dL (7-18); eGFR NON AFRICAN AMERICAN 86 mL/min (90-120)
[2018-11-16 18:33] LABS: CHLORIDE - SERUM 84 mmol/L (98-107); SODIUM 117 mmol/L (136-145)
[2018-11-16 19:53] VITALS: BP 120/50
--- NOTE | 2018-11-16 21:37 | NUR ---
PT. IS BEING TRANSFERED TO 2104 FOR HYPONATREMIA. REPORT WAS CALLED TO SAROJ ISBELL- PT. WAS TAKEN UPSTAIRS PER RENEA MEEK. PT. IS ALERT AND ORIENTED.
--- NOTE | 2018-11-17 13:45 | PN ---
PATIENT:AMANDO MURPHY MEDICAL RECORD: [id number] LOCATION:[facility] ADMISSION DATE: 11/09/18 PROGRESS NOTE DATE OF SERVICE: 11/16/2018 SUBJECTIVE: The patient's case was discussed with staff. She has no new complaint. OBJECTIVE: The patient has a depressed mood, but no thoughts of harming herself or others. She is not wanting to take her Depakote. She says it makes her dizzy. She did indeed have fall without an injury, but I spoke to the nurse who witnessed it and he said that she was wrapped up in a blanket and that she tripped over the end of the blanket that was around her feet. Nevertheless, the patient is adamant she is not going to take this medication. I have offered her lithium, which she flatly refuses to take. I am going to discontinue the Depakote and we will monitor her for any changes. TRANSINT:[id number] Voice Confirmation ID: [id number] DOCUMENT ID: [id number] MIRTHA TSAI MD at 1345 CC: [id number] DICTATION DATE: 11/16/18 1545 SPOUTING INSTALLER: 11/16/18 1833 DIS IN 11/16/18 [facility] [address] [place] [id number]
== END 2018-11-16 21:00 | disposition short-term general hospital (02) | DRG 885 ==
LOC: D.ER 16:14 → D.PSYCH 18:30
PROVIDERS: Family Medicine; ADMIT Psychiatry & Neurology Psychiatry; ATTEND Psychiatry & Neurology Psychiatry
DX: F33.2 Major depressive disorder, recurrent severe without psychotic features (principal); R45.851 Suicidal ideations; E87.1 Hypo-osmolality and hyponatremia; N39.0 Urinary tract infection, site not specified; F45.9 Somatoform disorder, unspecified; I10 Essential (primary) hypertension; I25.10 Atherosclerotic heart disease of native coronary artery without angina pectoris; K21.9 Gastro-esophageal reflux disease without esophagitis; K59.00 Constipation, unspecified; E87.6 Hypokalemia; R11.0 Nausea; E86.0 Dehydration; R53.1 Weakness

== ENCOUNTER 2018-11-16 19:32 | Inpatient (IN) | payer MEDICARE, OTHER ==
[~2018-11-16] VITALS: Ht 170.2 cm; Wt 77.3 kg
[~2018-11-16 19:32] MED LIST changes: +EFFEXOR25 MG PO; +VALIUM5 MG PO
[2018-11-16 23:58] VITALS: BP 140/62; BMI 20.1
[2018-11-17 00:30] VITALS: BP 132/57
[2018-11-17 04:00] VITALS: BP 120/52
[2018-11-17 08:22] VITALS: BP 136/46
[2018-11-17 10:22] LABS: BASOPHILS 0.1 % (0-2); EOSINOPHILS 0.1 % (0-7); HEMATOCRIT 31.1 % (36.0-48.0); HEMOGLOBIN 11.3 g/dL (12-16); IMMATURE GRANULOCYTES 0.3 % (0-5); LYMPHOCYTES 25.2 % (15-50); MCH 31.5 pg (26.0-34.0); MCHC 36.3 g/dL (31.0-37.0); MCV 86.6 fL (80.0-100.0); MONOCYTES 10.9 % (2-11); NEUTROPHILS 63.4 % (40-80); PLATELET COUNT 231 10x3/uL (130-400); RBC 3.59 10x6/uL (4.00-5.40); RDW 13.4 % (11.5-14.5); WBC 6.9 10x3/uL (4.8-10.8)
[2018-11-17 10:32] LABS: ALKALINE PHOSPHATASE 49 U/L (46-116); ALT (SGPT) 24 U/L (10-68); BILIRUBIN - TOTAL 0.61 mg/dL (0.2-1.3); CALC OSMOLALITY 243 mosm/kg (275-300); CALCIUM 7.7 mg/dL (8.5-10.1); CARBON DIOXIDE 20.9 mmol/L (21.0-32.0); CHLORIDE - SERUM 91 mmol/L (98-107); GLUCOSE 97 mg/dL (74-106); PROTEIN - SERUM 5.7 g/dL (6.4-8.2); SODIUM 121 mmol/L (136-145); UREA NITROGEN 12 mg/dL (7-18)
[2018-11-17 10:34] LABS: CREATININE - SERUM 0.4 mg/dL (0.6-1.3); eGFR NON AFRICAN AMERICAN > 90 mL/min (90-120)
[2018-11-17 12:21] VITALS: Ht 170.2 cm; Wt 77.3 kg
[2018-11-17 13:22] VITALS: BP 139/61
[2018-11-17 17:31] VITALS: BP 155/79
[2018-11-17 20:00] VITALS: BP 137/59
[2018-11-18] VITALS: BP 129/58
[2018-11-18 04:00] VITALS: BP 145/65
[2018-11-18 04:49] LABS: BASOPHILS 0.3 % (0-2); EOSINOPHILS 0.3 % (0-7); HEMATOCRIT 32.1 % (36.0-48.0); HEMOGLOBIN 11.4 g/dL (12-16); IMMATURE GRANULOCYTES 0.2 % (0-5); LYMPHOCYTES 22.5 % (15-50); MCH 31.3 pg (26.0-34.0); MCHC 35.5 g/dL (31.0-37.0); MCV 88.2 fL (80.0-100.0); MEAN PLATELET VOLUME 9.1 fL (7.4-10.4); NEUTROPHILS 65.7 % (40-80); PLATELET COUNT 239 10x3/uL (130-400); RBC 3.64 10x6/uL (4.00-5.40); RDW 13.6 % (11.5-14.5); WBC 6.1 10x3/uL (4.8-10.8)
[2018-11-18 04:56] LABS: CALC OSMOLALITY 254 mosm/kg (275-300); CALCIUM 7.7 mg/dL (8.5-10.1); CARBON DIOXIDE 21.8 mmol/L (21.0-32.0); CHLORIDE - SERUM 99 mmol/L (98-107); CREATININE - SERUM 0.4 mg/dL (0.6-1.3); GLUCOSE 87 mg/dL (74-106); POTASSIUM - SERUM 3.8 mmol/L (3.5-5.1); SODIUM 128 mmol/L (136-145); UREA NITROGEN 9 mg/dL (7-18); eGFR NON AFRICAN AMERICAN > 90 mL/min (90-120)
[2018-11-18 09:49] VITALS: BP 137/66
[2018-11-18 09:52] LABS: CREATININE - URINE 31.6 mg/dL (30-125); PRO/CRE RATIO URINE 0.3 mg/g; PROTEIN - URINE 10.2 mg/dL (0.0-11.9)
[2018-11-18 12:21] VITALS: BP 150/59
[2018-11-18 13:02] LABS: APPEARANCE SL CLDY (CLEAR); BILIRUBIN NEGATIVE (NEGATIVE); COLOR YELLOW (YELLOW); GLUCOSE NEGATIVE (NEGATIVE); KETONE NEGATIVE (NEGATIVE); NITRITE POSITIVE (NEGATIVE); PROTEIN NEGATIVE (NEGATIVE); SPECIFIC GRAVITY 1.015 (1.005-1.020); UROBILINOGEN NORMAL (NORMAL)
[2018-11-18 13:03] LABS: BACTERIA MODERATE /hpf (NONE SEEN); EPITHELIAL CELLS 0-5 /hpf (0-5); HYALINE CAST RARE /lpf (NONE SEEN); MUCUS <1+ /lpf (NONE SEEN); RED CELLS - URINE 0-5 /hpf (0-5)
[2018-11-18 20:00] VITALS: BP 138/57
[2018-11-19] VITALS: BP 130/55
[2018-11-19 04:28] LABS: BASOPHILS 0.3 % (0-2); EOSINOPHILS 0.6 % (0-7); HEMATOCRIT 34.4 % (36.0-48.0); IMMATURE GRANULOCYTES 0.1 % (0-5); LYMPHOCYTES 19.2 % (15-50); MCH 31.1 pg (26.0-34.0); MCHC 34.9 g/dL (31.0-37.0); MCV 89.1 fL (80.0-100.0); MEAN PLATELET VOLUME 9.1 fL (7.4-10.4); MONOCYTES 11.8 % (2-11); PLATELET COUNT 226 10x3/uL (130-400); RBC 3.86 10x6/uL (4.00-5.40); RDW 13.6 % (11.5-14.5); WBC 6.9 10x3/uL (4.8-10.8)
[2018-11-19 04:30] VITALS: BP 140/63
[2018-11-19 04:56] LABS: CALC OSMOLALITY 256 mosm/kg (275-300); CALCIUM 8.1 mg/dL (8.5-10.1); CARBON DIOXIDE 22.5 mmol/L (21.0-32.0); CHLORIDE - SERUM 101 mmol/L (98-107); CREATININE - SERUM 0.5 mg/dL (0.6-1.3); GLUCOSE 93 mg/dL (74-106); PHOSPHOROUS 2.6 mg/dL (2.5-4.9); POTASSIUM - SERUM 3.7 mmol/L (3.5-5.1); SODIUM 129 mmol/L (136-145); UREA NITROGEN 6 mg/dL (7-18); URIC ACID 1.8 mg/dL (2.6-7.2); eGFR NON AFRICAN AMERICAN > 90 mL/min (90-120)
[2018-11-19 08:06] VITALS: BP 140/58
[2018-11-19 12:26] VITALS: BP 129/66
[2018-11-19 15:59] VITALS: BP 136/64
[2018-11-19 20:00] VITALS: BP 143/58
[2018-11-20] VITALS: BP 129/64
[2018-11-20 04:30] VITALS: BP 152/72
[2018-11-20 05:11] LABS: BASOPHILS 0.3 % (0-2); EOSINOPHILS 1.1 % (0-7); HEMATOCRIT 32.8 % (36.0-48.0); HEMOGLOBIN 11.4 g/dL (12-16); IMMATURE GRANULOCYTES 0.3 % (0-5); LYMPHOCYTES 22.4 % (15-50); MCH 31.2 pg (26.0-34.0); MCHC 34.8 g/dL (31.0-37.0); MCV 89.9 fL (80.0-100.0); MONOCYTES 10.4 % (2-11); NEUTROPHILS 65.5 % (40-80); PLATELET COUNT 208 10x3/uL (130-400); RBC 3.65 10x6/uL (4.00-5.40); RDW 13.6 % (11.5-14.5); WBC 6.5 10x3/uL (4.8-10.8)
[2018-11-20 05:29] LABS: CALC OSMOLALITY 266 mosm/kg (275-300); CALCIUM 8.2 mg/dL (8.5-10.1); CARBON DIOXIDE 24.2 mmol/L (21.0-32.0); CHLORIDE - SERUM 103 mmol/L (98-107); CREATININE - SERUM 0.6 mg/dL (0.6-1.3); GLUCOSE 112 mg/dL (74-106); PHOSPHOROUS 2.6 mg/dL (2.5-4.9); POTASSIUM - SERUM 3.3 mmol/L (3.5-5.1); SODIUM 134 mmol/L (136-145); eGFR NON AFRICAN AMERICAN > 90 mL/min (90-120)
[2018-11-20 05:33] LABS: UREA NITROGEN 8 mg/dL (7-18)
[2018-11-20] MEDS ORDERED: BUPROPION HCL100 M1 PO (09:03)
[2018-11-20] MEDS ORDERED: LEVAQUIN750 MG PO (09:03)
[2018-11-20 18:31] VITALS: BP 127/63
[2018-11-20 20:00] VITALS: BP 148/67
[2018-11-21] VITALS: BP 147/62
[2018-11-21 04:30] VITALS: BP 117/52
[2018-11-21 06:45] LABS: BASOPHILS 0.4 % (0-2); EOSINOPHILS 1.6 % (0-7); HEMATOCRIT 31.7 % (36.0-48.0); HEMOGLOBIN 10.8 g/dL (12-16); IMMATURE GRANULOCYTES 0.4 % (0-5); LYMPHOCYTES 29.9 % (15-50); MCH 30.9 pg (26.0-34.0); MCHC 34.1 g/dL (31.0-37.0); MCV 90.8 fL (80.0-100.0); MEAN PLATELET VOLUME 9.5 fL (7.4-10.4); NEUTROPHILS 56.7 % (40-80); PLATELET COUNT 215 10x3/uL (130-400); RBC 3.49 10x6/uL (4.00-5.40)
[2018-11-21 06:52] LABS: CALC OSMOLALITY 266 mosm/kg (275-300); CARBON DIOXIDE 23.4 mmol/L (21.0-32.0); CHLORIDE - SERUM 103 mmol/L (98-107); CREATININE - SERUM 0.5 mg/dL (0.6-1.3); GLUCOSE 83 mg/dL (74-106); POTASSIUM - SERUM 3.3 mmol/L (3.5-5.1); SODIUM 135 mmol/L (136-145); UREA NITROGEN 7 mg/dL (7-18); eGFR NON AFRICAN AMERICAN > 90 mL/min (90-120)
[2018-11-21 08:55] VITALS: BP 137/47
--- NOTE | 2018-11-21 15:34 | CN ---
PATIENT NAME:AMANDO MURPHY MEDICAL RECORD: [id number] : 40 LOCATION:[facility] ADMIT DATE: 11/16/18 ACCOUNT: [id number] CONSULTING PHYSICIAN: MIRTHA TSAI MD REFERRING PHYSICIAN: TONE HOWARD MD DATE OF CONSULTATION: 11/20/2018 IDENTIFYING DATA: The patient is 78 years old and is known to me from recent hospitalization on the behavioral unit. The patient has numerous depressive symptoms and has delusions regarding her bowel and bladder function. She was being treated for these underlying psychiatric conditions when she was discovered to be hyponatremic and was referred to internal medicine for evaluation and treatment. ASSESSMENT: Major depression with psychosis. PLAN: The patient should be transferred back to the behavioral unit once neurology has signed off. She is still in need of underlying psychiatric care. Please transfer her when she is medically stable and appropriate to be returned to a psychiatric unit from medical standpoint. TRANSINT:[id number] Voice Confirmation ID: [id number] DOCUMENT ID: [id number] MIRTHA TSAI MD at 1534 CC: [id number] DICTATION DATE: 11/20/18 1151 SECOND LANGUAGE TUTOR: 11/20/18 1419 ADM IN [facility] [address] [place] [address]
[2018-11-21 18:15] VITALS: BP 129/48
[2018-11-21 20:00] VITALS: BP 133/55; BP 97/61
[2018-11-22] VITALS: BP 134/54
[2018-11-22 04:00] VITALS: BP 127/43
[2018-11-22 05:14] LABS: BASOPHILS 0.6 % (0-2); EOSINOPHILS 1.7 % (0-7); HEMATOCRIT 31.2 % (36.0-48.0); HEMOGLOBIN 10.7 g/dL (12-16); IMMATURE GRANULOCYTES 0.2 % (0-5); MCHC 34.3 g/dL (31.0-37.0); MCV 90.4 fL (80.0-100.0); MONOCYTES 9.9 % (2-11); NEUTROPHILS 65.6 % (40-80); PLATELET COUNT 195 10x3/uL (130-400); RBC 3.45 10x6/uL (4.00-5.40); RDW 14.1 % (11.5-14.5); WBC 5.2 10x3/uL (4.8-10.8)
[2018-11-22 05:37] LABS: CALC OSMOLALITY 274 mosm/kg (275-300); CALCIUM 8.3 mg/dL (8.5-10.1); CARBON DIOXIDE 22.3 mmol/L (21.0-32.0); CHLORIDE - SERUM 105 mmol/L (98-107); CREATININE - SERUM 0.6 mg/dL (0.6-1.3); GLUCOSE 98 mg/dL (74-106); MAGNESIUM - SERUM 1.9 mg/dL (1.8-2.4); PHOSPHOROUS 2.5 mg/dL (2.5-4.9); POTASSIUM - SERUM 3.6 mmol/L (3.5-5.1); SODIUM 138 mmol/L (136-145); eGFR NON AFRICAN AMERICAN > 90 mL/min (90-120)
[2018-11-22 05:38] LABS: UREA NITROGEN 10 mg/dL (7-18)
[2018-11-22 08:52] VITALS: BP 131/47
[2018-11-22 13:56] VITALS: BP 151/68
--- NOTE | 2018-11-22 14:46 | MORECARE ---
CASE MANAGEMENT DISCHARGE SUMMARY PATIENT: AMANDO MURPHY UNIT: [id number] ADM DATE: 11/16/18 AGE: 78 : 40 SEX: F ROOM/BED: D.2108 AUTHOR: JAMES MARDID PHYSICIAN: REFERRING PHYSICIAN: TONE HOWARD MD DATE OF SERVICE: 11/22/18 Discharge Plan Patient Name: AMANDO MURPHY Facility: [facility]:[place] : 1940 Planned Disposition: Home Anticipated Discharge Date: 11/23/18 Discharge Date: Expected LOS: 7 Initial Reviewer: [email or web address] Initial Review Date: 11/22/2018 Generated: 11/22/18 3:45 pm Patient Name: AMANDO MURPHY Page [id number] at 1446 All edits/amendments must be made on the electronic document DICTATION DATE: 11/22/181444 HOUSEHOLD APPLIANCE INSTALLER: FAYE 11/22/18 1445 RPT#: [id number] DC DATE: STATUS: ADM IN [facility] [address] [place] [address] END OF REPORT
--- NOTE | 2018-11-22 14:55 | MORECARE ---
CASE MANAGEMENT DISCHARGE SUMMARY PATIENT: AMANDO MURPHY UNIT: [id number] ADM DATE: 11/16/18 AGE: 78 : 40 SEX: F ROOM/BED: D.2102 AUTHOR: JAMES MADRID PHYSICIAN: REFERRING PHYSICIAN: TONE HOWARD MD DATE OF SERVICE: 11/22/18 Discharge Plan Patient Name: AMANDO MURPHY Facility: [facility]:[place] : 1940 Planned Disposition: Home Anticipated Discharge Date: 11/23/18 Discharge Date: Expected LOS: 7 Initial Reviewer: [id number] Initial Review Date: 11/22/2018 Generated: 11/22/18 3:54 pm DCPIA - Discharge Planning Initial Assessment Updated by [email or web address]: Humberto Ibarra on 11/22/18 2:54 pm * Is the patient Alert and Oriented? Yes * How many steps to enter\exit or inside your home? NONE * PCP DR. ESPINO * Pharmacy [facility] * Preadmission Environment Home Alone * ADLs Independent * Equipment None * Other Equipment NO MEDICAL EQUIPMENT PROVIDER PREFERENCE * List name and contact numbers for known caregivers / representatives who currently or will assist patient after discharge: JASPREET BOSS, JONH, * Verbal permission to speak to the caregivers and representatives has been obtained from the patient. N/A * Community resources currently utilized None * Please name any agencies selected above. NONE * Additional services required to return to the preadmission environment? No * Can the patient safely return to the preadmission environment? Yes * Has this patient been hospitalized within the prior 30 days at any hospital? No Last DP export: 11/22/18 1:46 p Patient Name: AMANDO MURPHY Page [id number] at 1457 All edits/amendments must be made on the electronic document DICTATION DATE: 11/22/181453 TIMBER INSPECTOR: FAYE 11/22/181453 RPT#: [id number] DC DATE: STATUS: ADM IN [facility] [address] [place] [address] END OF REPORT
--- NOTE | 2018-11-22 15:07 | MORECARE ---
CASE MANAGEMENT DISCHARGE SUMMARY PATIENT: AMANDO MURPHY UNIT: [id number] ADM DATE: 11/16/18 AGE: 78 : 40 SEX: F ROOM/BED: D.5941 AUTHOR: JULIUS,DOC PHYSICIAN: REFERRING PHYSICIAN: TONE HOWARD MD DATE OF SERVICE: 11/22/18 Discharge Plan Patient Name: AMANDO MURPHY Facility: [facility]:[place] : 1940 Planned Disposition: Home Anticipated Discharge Date: 11/23/18 Discharge Date: Expected LOS: 7 Initial Reviewer: [email or web address] Initial Review Date: 11/22/2018 Generated: 11/22/18 4:06 pm DCPIA - Discharge Planning Initial Assessment Updated by CHRIS: Humberto Ibarra on 11/22/18 2:54 pm * Is the patient Alert and Oriented? Yes * How many steps to enter\exit or inside your home? NONE * PCP DR. ESPINO * Pharmacy [facility] * Preadmission Environment Home Alone * ADLs Independent * Equipment None * Other Equipment NO MEDICAL EQUIPMENT PROVIDER PREFERENCE * List name and contact numbers for known caregivers / representatives who currently or will assist patient after discharge: JASPREET BOSS, JONH, * Verbal permission to speak to the caregivers and representatives has been obtained from the patient. N/A * Community resources currently utilized None * Please name any agencies selected above. NONE * Additional services required to return to the preadmission environment? No * Can the patient safely return to the preadmission environment? Yes * Has this patient been hospitalized within the prior 30 days at any hospital? No External Providers [facility] Next Contact Date: 11/22/2018 Service Request Date: Service Type: Resolution: Reviewer: Comments: Coverage Notice Reviewer: CHRIS Ibarra Notice Issued Date-Time: 11/22/2018 14:30 Notice Type: IM Discharge Notice Notice Delivered To: Patient Relationship to Patient: Program Checker Name: Delivery Method: HAND - Hand Delivered Maria Elena Days: Prior Verbal Notification: Recipient Understood Notice: Yes Recipient Signature: Yes Med Rec Note Co-signed by Attending: Coverage Notice Comment: TERRI 11-22-18, 1430, TB Reviewer: [email or web address] Bertin Ibarra Notice Issued Date-Time: 11/22/2018 14:30 Notice Type: Patient Choice Letter Notice Delivered To: Patient Relationship to Patient: Program Checker Name: Delivery Method: HAND - Hand Delivered Maria Elena Days: Prior Verbal Notification: Recipient Understood Notice: Yes Recipient Signature: Yes Med Rec Note Co-signed by Attending: Coverage Notice Comment: [facility] Last DP export: 11/22/18 1:55 p Patient Name: AMANDO MURPHY Page [id number] at 1507 All edits/amendments must be made on the electronic document DICTATION DATE: 11/22/18 1506 JOB SPECIFICATION WRITER: FAYE 11/22/18 1506 RPT#: [id number] DC DATE: STATUS: ADM IN [facility] [address] [place] [address] END OF REPORT
--- NOTE | 2018-11-22 15:15 | MORECARE ---
CASE MANAGEMENT DISCHARGE SUMMARY PATIENT: AMANDO MURPHY UNIT: [id number] ADM DATE: 11/16/18 AGE: 78 : 40 SEX: F ROOM/BED: D.0792 AUTHOR: JULIUS,DOC PHYSICIAN: REFERRING PHYSICIAN: TONE HOWARD MD DATE OF SERVICE: 11/22/18 Discharge Plan Patient Name: AMANDO MURPHY Facility: [facility]:[place] : 1940 Planned Disposition: Home Anticipated Discharge Date: 11/23/18 Discharge Date: Expected LOS: 7 Initial Reviewer: [email or web address] Initial Review Date: 11/22/2018 Generated: 11/22/18 4:15 pm DCPIA - Discharge Planning Initial Assessment Updated by CHRIS: Humberto Ibarra on 11/22/18 2:54 pm * Is the patient Alert and Oriented? Yes * How many steps to enter\exit or inside your home? NONE * PCP DR. ESPINO * Pharmacy [facility] * Preadmission Environment Home Alone * ADLs Independent * Equipment None * Other Equipment NO MEDICAL EQUIPMENT PROVIDER PREFERENCE * List name and contact numbers for known caregivers / representatives who currently or will assist patient after discharge: JASPREET BOSS, JONH, * Verbal permission to speak to the caregivers and representatives has been obtained from the patient. N/A * Community resources currently utilized None * Please name any agencies selected above. NONE * Additional services required to return to the preadmission environment? No * Can the patient safely return to the preadmission environment? Yes * Has this patient been hospitalized within the prior 30 days at any hospital? No External Providers External Provider: [facility] Next Contact Date: 11/22/2018 Service Request Date: Service Type: Resolution: Reviewer: Comments: Coverage Notice Reviewer: [email or web address] - Humberto Ibarra Notice Issued Date-Time: 11/22/2018 14:30 Notice Type: IM Discharge Notice Notice Delivered To: Patient Relationship to Patient: Attorney General Name: Delivery Method: HAND - Hand Delivered Maria Elena Days: Prior Verbal Notification: Recipient Understood Notice: Yes Recipient Signature: Yes Med Rec Note Co-signed by Attending: Coverage Notice Comment: TERRI IM 11-22-18, 1430, TB Reviewer: [email or web address] - Humberto Ibarra Notice Issued Date-Time: 11/22/2018 14:30 Notice Type: Patient Choice Letter Notice Delivered To: Patient Relationship to Patient: Attorney General Name: Delivery Method: HAND - Hand Delivered Maria Elena Days: Prior Verbal Notification: Recipient Understood Notice: Yes Recipient Signature: Yes Med Rec Note Co-signed by Attending: Coverage Notice Comment: [facility] Last DP export: 11/22/18 2:07 p Patient Name: AMANDO MURPHY Page [id number] at 1515 All edits/amendments must be made on the electronic document DICTATION DATE: 11/22/18 151 RETAIL LOAN OFFICER: FAYE 11/22/18 1515 RPT#: [id number] DC DATE: STATUS: ADM IN [facility] [address] [place] [address] END OF REPORT
--- NOTE | 2018-11-22 16:09 | MORECARE ---
CASE MANAGEMENT DISCHARGE SUMMARY PATIENT: AMANDO MURPHY UNIT: [id number] ADM DATE: 11/16/18 AGE: 78 : 40 SEX: F ROOM/BED: D.3695 AUTHOR: JULIUS,DOC PHYSICIAN: REFERRING PHYSICIAN: TONE HOWARD MD DATE OF SERVICE: 11/22/18 Discharge Plan Patient Name: AMANDO MURPHY Facility: [facility]:[place] : 1940 Planned Disposition: Home Anticipated Discharge Date: 11/23/18 Discharge Date: Expected LOS: 7 Initial Reviewer: [email or web address] Initial Review Date: 11/22/2018 Generated: 11/22/18 5:09 pm Comments DCP- Discharge Planning Updated by [id number]: Humberto Ibarra on 11/22/18 3:[address] Patient Name: AMANDO MURPHY Admission Status: Elective Accout number: [id number] Admission Date: 11-16-2018 : 1940 Admission Diagnosis: Attending: TONE HOWARD Current LOS: 6 Anticipated DC Date: 11-23-2018 Planned Disposition: Home WITH HOME HEALTH Primary Insurance: MEDICARE A & B PLANNED EXTERNAL PROVIDER: [facility] Discharge Planning Comments: CM MET WITH PT IN ROOM TO DISCUSS DISCHARGE PLANNING AND NEEDS. PT REPORTS LIVING AT HOME INDEPENDENTLY AND ALONE. PT HAS NO MEDICAL EQUIPMENT AND NO PROVIDER PREFERENCE. PT HAS SUPERIOR SHELTER THAT HER SON PAYS FOR TWO DAYS WEEK, PAID FOR BY HER SON. CM DISCUSSED AVAILABILITY OF HOME HEALTH, REHAB SERVICES AND MEDICAL EQUIPMENT. PT STATES SHE IS GOING TO [facility] TOMORROW AND HAS TO BE THERE AT 1000 FOR OUTPATIENT PROCEDURE. HER COUSIN IS PICKING HER UP FOR TRANSPORT. PT WANTS [facility] HOME HEALTH RESUMPTION, CHOICE SIGNED. IMPORTANT MESSAGE FROM MEDICARE PROVIDED AND EXPLAINED. CM CALLED [facility], SPOKE TO JOEL WHO INFORMED CM THAT [facility] WILL NOT ACCEPT BACK PT REFUSED MENTAL HEALTH CARE. CM SPOKE TO PT IN ROOM, INFORMED OF THIS. PT STATES SHE DID NOT REFUSE TO GO BACK TO SHELTER. CM OFFERED SHELTER PLACEMENT, PT REFUSED AND STATES SHE IS GOING TO [facility] IN [place] TOMORROW FOR HER OUTPATIENT PROCEDURE. CM DISCUSSED OTHER HOME HEALTH COMPANIES, PT CHOSE [facility], CHOICE FORM UPDATED. CM SPOKE TO GORDO GARCIA [facility] WHO INFORMED CM THEY HAD RECEIVED REFERRAL FROM [facility] AND WILL ACCEPT REFERRAL FOR HOME HEALTH. CM SPOKE TO MELITA [facility] WHO INFORMED CM THEY WILL NOT FOLLOW FOR HOME HEALTH ORDERS. PT REPORTS DR. ESPINO IS HER PRIMARY DOCTOR, CM CALLED DR. MARQUEZ OFFICE, SPOKE TO HIS NURSE, MARIAA, WHO INFORMED CM THAT DR ESPINO WILL FOLLOW FOR HOME HEALTH ORDERS. CM OBTAINED HOME HEALTH ORDER, FAXED REFERRAL TO [facility] AT [phone]. FOR DISCHARGE, FAX DISCHARGE INFORMATION TO [facility] AT [phone]. Hair Specialist: Humberto Ibarra DCPIA - Discharge Planning Initial Assessment Updated by [id number]: Humberto Ibarra on 11/22/18 2:54 pm * Is the patient Alert and Oriented? Yes * How many steps to enter\exit or inside your home? NONE * PCP DR. ESPINO * Pharmacy [facility] [address] * Preadmission Environment Home Alone * ADLs Independent * Equipment None * Other Equipment NO MEDICAL EQUIPMENT PROVIDER PREFERENCE * List name and contact numbers for known caregivers / representatives who currently or will assist patient after discharge: JASPREET BOSS, JONH, * Verbal permission to speak to the caregivers and representatives has been obtained from the patient. N/A * Community resources currently utilized None * Please name any agencies selected above. NONE * Additional services required to return to the preadmission environment? No * Can the patient safely return to the preadmission environment? Yes * Has this patient been hospitalized within the prior 30 days at any hospital? No Coverage Notice Reviewer: [id number] Bertin Ibarra Notice Issued Date-Time: 11/22/2018 14:30 Notice Type: IM Discharge Notice Notice Delivered To: Patient Relationship to Patient: Photo Mask Processor Name: Delivery Method: HAND - Hand Delivered Maria Elena Days: Prior Verbal Notification: Recipient Understood Notice: Yes Recipient Signature: Yes Med Rec Note Co-signed by Attending: Coverage Notice Comment: TERRI 11-22-18, 1430, TB Reviewer: [email or web address] Bertin Ibarra Notice Issued Date-Time: 11/22/2018 14:30 Notice Type: Patient Choice Letter Notice Delivered To: Patient Relationship to Patient: Photo Mask Processor Name: Delivery Method: HAND - Hand Delivered Maria Elena Days: Prior Verbal Notification: Recipient Understood Notice: Yes Recipient Signature: Yes Med Rec Note Co-signed by Attending: Coverage Notice Comment: [facility] Last DP export: 11/22/18 2:15 p Patient Name: AMANDO MURPHY Page [phone] at 1609 All edits/amendments must be made on the electronic document DICTATION DATE: 11/22/181608 SUPERVISOR ELECTRONICS INSPECTION: FAYE 11/22/181608 RPT#: [id number] DC DATE: STATUS: ADM IN [facility] [address] [place] [address] END OF REPORT
[2018-11-22 17:39] VITALS: BP 125/73
[2018-11-22 20:00] VITALS: BP 129/55
[2018-11-23 04:00] VITALS: BP 105/32
[2018-11-23 05:20] LABS: BASOPHILS 0.7 % (0-2); EOSINOPHILS 1.5 % (0-7); HEMATOCRIT 32.9 % (36.0-48.0); HEMOGLOBIN 11.4 g/dL (12-16); IMMATURE GRANULOCYTES 0.2 % (0-5); LYMPHOCYTES 26.5 % (15-50); MCH 31.4 pg (26.0-34.0); MCHC 34.7 g/dL (31.0-37.0); MCV 90.6 fL (80.0-100.0); MEAN PLATELET VOLUME 9.5 fL (7.4-10.4); MONOCYTES 9.4 % (2-11); NEUTROPHILS 61.7 % (40-80); PLATELET COUNT 202 10x3/uL (130-400); RBC 3.63 10x6/uL (4.00-5.40); RDW 13.9 % (11.5-14.5); WBC 4.6 10x3/uL (4.8-10.8)
[2018-11-23 05:39] LABS: CALC OSMOLALITY 274 mosm/kg (275-300); CALCIUM 8.3 mg/dL (8.5-10.1); CARBON DIOXIDE 24.7 mmol/L (21.0-32.0); CHLORIDE - SERUM 104 mmol/L (98-107); CREATININE - SERUM 0.6 mg/dL (0.6-1.3); GLUCOSE 109 mg/dL (74-106); MAGNESIUM - SERUM 2.1 mg/dL (1.8-2.4); PHOSPHOROUS 2.8 mg/dL (2.5-4.9); POTASSIUM - SERUM 3.3 mmol/L (3.5-5.1); SODIUM 138 mmol/L (136-145); eGFR NON AFRICAN AMERICAN > 90 mL/min (90-120)
[2018-11-23 05:41] LABS: UREA NITROGEN 6 mg/dL (7-18)
[2018-11-23 08:40] VITALS: BP 117/62
--- NOTE | 2018-11-23 08:52 | MORECARE ---
CASE MANAGEMENT DISCHARGE SUMMARY PATIENT: AMANDO MURPHY UNIT: [id number] ADM DATE: 11/16/18 AGE: 78 : 40 SEX: F ROOM/BED: D.1034 AUTHOR: JULIUS,DOC PHYSICIAN: REFERRING PHYSICIAN: TONE HOWARD MD DATE OF SERVICE: 11/23/18 Discharge Plan Patient Name: AMANDO MURPHY Facility: [facility]:[place] : 1940 Planned Disposition: Home Anticipated Discharge Date: 11/23/18 Discharge Date: Expected LOS: 7 Initial Reviewer: [email or web address] Initial Review Date: 11/22/2018 Generated: 11/23/18 9:52 am Comments DCP- Discharge Planning Updated by [email or web address]: Humberto Ibarra on 11/22/18 3:[address] Patient Name: AMANDO MURPHY Admission Status: Elective Accout number: [id number] Admission Date: 11-16-2018 : 1940 Admission Diagnosis: Attending: TONE HOWARD Current LOS: 6 Anticipated DC Date: 11-23-2018 Planned Disposition: Home WITH HOME HEALTH Primary Insurance: MEDICARE A & B PLANNED EXTERNAL PROVIDER: [facility] Discharge Planning Comments: CM MET WITH PT IN ROOM TO DISCUSS DISCHARGE PLANNING AND NEEDS. PT REPORTS LIVING AT HOME INDEPENDENTLY AND ALONE. PT HAS NO MEDICAL EQUIPMENT AND NO PROVIDER PREFERENCE. PT HAS SUPERIOR GROUP HOME THAT HER SON PAYS FOR TWO DAYS WEEK, PAID FOR BY HER SON. CM DISCUSSED AVAILABILITY OF HOME HEALTH, REHAB SERVICES AND MEDICAL EQUIPMENT. PT STATES SHE IS GOING TO [facility] TOMORROW AND HAS TO BE THERE AT 1000 FOR OUTPATIENT PROCEDURE. HER COUSIN IS PICKING HER UP FOR TRANSPORT. PT WANTS [facility] HOME HEALTH RESUMPTION, CHOICE SIGNED. IMPORTANT MESSAGE FROM MEDICARE PROVIDED AND EXPLAINED. CM CALLED [facility], SPOKE TO JOEL WHO INFORMED CM THAT [facility] WILL NOT ACCEPT BACK PT REFUSED MENTAL HEALTH CARE. CM SPOKE TO PT IN ROOM, INFORMED OF THIS. PT STATES SHE DID NOT REFUSE TO GO BACK TO GROUP HOME. CM OFFERED GROUP HOME PLACEMENT, PT REFUSED AND STATES SHE IS GOING TO [facility] IN [place] TOMORROW FOR HER OUTPATIENT PROCEDURE. CM DISCUSSED OTHER HOME HEALTH COMPANIES, PT CHOSE [facility], CHOICE FORM UPDATED. CM SPOKE TO GORDO GARCIA [facility] WHO INFORMED CM THEY HAD RECEIVED REFERRAL FROM [facility] AND WILL ACCEPT REFERRAL FOR HOME HEALTH. CM SPOKE TO MELITA [facility] WHO INFORMED CM THEY WILL NOT FOLLOW FOR HOME HEALTH ORDERS. PT REPORTS DR. ESPINO IS HER PRIMARY DOCTOR, CM CALLED DR. MARQUEZ OFFICE, SPOKE TO HIS NURSE, MARIAA, WHO INFORMED CM THAT DR ESPINO WILL FOLLOW FOR HOME HEALTH ORDERS. CM OBTAINED HOME HEALTH ORDER, FAXED REFERRAL TO [facility] AT [phone]. FOR DISCHARGE, FAX DISCHARGE INFORMATION TO [facility] AT [phone]. Scroll Shear Operator: Humberto Ibarra DCPIA - Discharge Planning Initial Assessment Updated by [id number]: Humberto Ibarra on 11/22/18 2:54 pm * Is the patient Alert and Oriented? Yes * How many steps to enter\exit or inside your home? NONE * PCP DR. ESPINO * Pharmacy [facility] [address] * Preadmission Environment Home Alone * ADLs Independent * Equipment None * Other Equipment NO MEDICAL EQUIPMENT PROVIDER PREFERENCE * List name and contact numbers for known caregivers / representatives who currently or will assist patient after discharge: JASPREET BOSS, JONH, * Verbal permission to speak to the caregivers and representatives has been obtained from the patient. N/A * Community resources currently utilized None * Please name any agencies selected above. NONE * Additional services required to return to the preadmission environment? No * Can the patient safely return to the preadmission environment? Yes * Has this patient been hospitalized within the prior 30 days at any hospital? No Coverage Notice Reviewer: [id number] Bertin Ibarra Notice Issued Date-Time: 11/22/2018 14:30 Notice Type: IM Discharge Notice Notice Delivered To: Patient Relationship to Patient: High School Professional Name: Delivery Method: HAND - Hand Delivered Maria Elena Days: Prior Verbal Notification: Recipient Understood Notice: Yes Recipient Signature: Yes Med Rec Note Co-signed by Attending: Coverage Notice Comment: TERRI 11-22-18, 1430, TB Reviewer: [id number] Bertin Ibarra Notice Issued Date-Time: 11/22/2018 14:30 Notice Type: Patient Choice Letter Notice Delivered To: Patient Relationship to Patient: High School Professional Name: Delivery Method: HAND - Hand Delivered Maria Elena Days: Prior Verbal Notification: Recipient Understood Notice: Yes Recipient Signature: Yes Med Rec Note Co-signed by Attending: Coverage Notice Comment: [facility] Last DP export: 11/22/18 3:09 p Patient Name: AMANDO MURPHY Page [phone] at 0852 All edits/amendments must be made on the electronic document DICTATION DATE: 11/23/18851 ROUND CUTTER OPERATOR: FAYE 11/23/1852 RPT#: [id number] DC DATE: STATUS: ADM IN [facility] [address] [place] [address] END OF REPORT
--- NOTE | 2018-11-23 09:19 | MORECARE ---
CASE MANAGEMENT DISCHARGE SUMMARY PATIENT: AMANDO MURPHY UNIT: [id number] ADM DATE: 11/16/18 AGE: 78 : 40 SEX: F ROOM/BED: D.3438 AUTHOR: JULIUS,DOC PHYSICIAN: REFERRING PHYSICIAN: TONE HOWARD MD DATE OF SERVICE: 11/23/18 Discharge Plan Patient Name: AMANDO MURPHY Facility: [facility]:[place] : 1940 Planned Disposition: Home Anticipated Discharge Date: 11/23/18 Discharge Date: 11/23/2018 Expected LOS: 7 Initial Reviewer: [id number] Initial Review Date: 11/22/2018 Generated: 11/23/18 10:19 am Comments DCP- Discharge Planning Updated by [id number]: Humberto Ibarra on 11/23/18 8:[address] Patient Name: AMANDO MURPHY Encounter No: [id number] : 1940 Primary Insurance: MEDICARE A & B Anticipated DC Date: 11-23-2018 Planned Disposition: Home DCP follow-up note: CM RECEIVED DISCHARGE ORDER, CALLED AND NOTIFIED KENDALL AT [facility], , FAXED DISCHARGE INFORMATION TO [facility] AT [phone]. CM SPOKE TO PT WHO WAS UP AND WALKING INDEPENDENTLY AND WITHOUT DEVICE IN THE HALLWAY, PT REPORTS HER COUSIN IS HERE TO PICK HER UP AND SHE IS READY TO LEAVE NOW. PATTERN HANGER NURSE NOTIFIED. CM RECEIVED CALL FROM GORDO OF [facility] WHO INFORMED CM THAT PT'S HISTORY AND PHYSICAL INDICATING PT HAD SUICIDAL IDEATIONS. [facility] DOES NOT HAVE A PSYCHIATRIC NURSE. [facility] OFFERED TO SEND REFERRAL TO ANOTHER HOME HEALTH AGENCY, EXPLAINED THAT PT HAD DISCHARGED HOME AND WAS NOT HERE FOR CM TO OBTAIN ANY CONSENTS. [facility] DID NOT ACCEPT PT FOR HOME HEALTH FOLLOW UP. [facility] REFUSED TO ACCEPT PT BACK PATIENT. PT DID DISCHARGE WITH [facility] FOR FOLLOW UP AT HOME. Humberto Ibarra, CASE MANAGEMENT DCP- Discharge Planning Updated by [id number]: Humberto Ibarra on 11/22/18 3:[address] Patient Name: AMANDO MURPHY Admission Status: Elective Accout number: [id number] Admission Date: 11-16-2018 : 1940 Admission Diagnosis: Attending: TONE HOWARD Current LOS: 6 Anticipated DC Date: 11-23-2018 Planned Disposition: Home WITH HOME HEALTH Primary Insurance: MEDICARE A & B PLANNED EXTERNAL PROVIDER: [facility] Discharge Planning Comments: CM MET WITH PT IN ROOM TO DISCUSS DISCHARGE PLANNING AND NEEDS. PT REPORTS LIVING AT HOME INDEPENDENTLY AND ALONE. PT HAS NO MEDICAL EQUIPMENT AND NO PROVIDER PREFERENCE. PT HAS SUPERIOR RESIDENTIAL THAT HER SON PAYS FOR TWO DAYS WEEK, PAID FOR BY HER SON. CM DISCUSSED AVAILABILITY OF HOME HEALTH, REHAB SERVICES AND MEDICAL EQUIPMENT. PT STATES SHE IS GOING TO [facility] TOMORROW AND HAS TO BE THERE AT 1000 FOR OUTPATIENT PROCEDURE. HER COUSIN IS PICKING HER UP FOR TRANSPORT. PT WANTS [facility] HOME HEALTH RESUMPTION, CHOICE SIGNED. IMPORTANT MESSAGE FROM MEDICARE PROVIDED AND EXPLAINED. CM CALLED [facility], SPOKE TO JOEL WHO INFORMED CM THAT [facility] WILL NOT ACCEPT BACK PT REFUSED MENTAL HEALTH CARE. CM SPOKE TO PT IN ROOM, INFORMED OF THIS. PT STATES SHE DID NOT REFUSE TO GO BACK TO RESIDENTIAL. CM OFFERED RESIDENTIAL PLACEMENT, PT REFUSED AND STATES SHE IS GOING TO [facility] IN [place] TOMORROW FOR HER OUTPATIENT PROCEDURE. CM DISCUSSED OTHER HOME HEALTH COMPANIES, PT CHOSE [facility], CHOICE FORM UPDATED. CM SPOKE TO GORDO GARCIA [facility] WHO INFORMED CM THEY HAD RECEIVED REFERRAL FROM HOME [facility] AND WILL ACCEPT REFERRAL FOR HOME HEALTH. CM SPOKE TO MELITA [facility] WHO INFORMED CM THEY WILL NOT FOLLOW FOR HOME HEALTH ORDERS. PT REPORTS DR. ESPINO IS HER PRIMARY DOCTOR, CM CALLED DR. MARQUEZ OFFICE, SPOKE TO HIS NURSE, MARIAA, WHO INFORMED CM THAT DR ESPINO WILL FOLLOW FOR HOME HEALTH ORDERS. CM OBTAINED HOME HEALTH ORDER, FAXED REFERRAL TO [facility] AT [phone]. FOR DISCHARGE, FAX DISCHARGE INFORMATION TO [facility] AT [phone]. [employer] Camp[employer] Manager: Humberto Ibarra DCPIA - Discharge Planning Initial Assessment Updated by [id number]: Humberto Ibarra on 11/22/18 2:54 pm * Is the patient Alert and Oriented? Yes * How many steps to enter\exit or inside your home? NONE * PCP DR. ESPINO * Pharmacy [facility] [address] * Preadmission Environment Home Alone * ADLs Independent * Equipment None * Other Equipment NO MEDICAL EQUIPMENT PROVIDER PREFERENCE * List name and contact numbers for known caregivers / representatives who currently or will assist patient after discharge: JASPREET BOSS, JONH, * Verbal permission to speak to the caregivers and representatives has been obtained from the patient. N/A * Community resources currently utilized None * Please name any agencies selected above. NONE * Additional services required to return to the preadmission environment? No * Can the patient safely return to the preadmission environment? Yes * Has this patient been hospitalized within the prior 30 days at any hospital? No Coverage Notice Reviewer: CHRIS Ibarra Notice Issued Date-Time: 11/22/2018 14:30 Notice Type: IM Discharge Notice Notice Delivered To: Patient Relationship to Patient: Truck Sales Manager Name: Delivery Method: HAND - Hand Delivered Maria Elena Days: Prior Verbal Notification: Recipient Understood Notice: Yes Recipient Signature: Yes Med Rec Note Co-signed by Attending: Coverage Notice Comment: TERRI 11-22-18, 1430, TB Reviewer: CHRIS Ibarra Notice Issued Date-Time: 11/22/2018 14:30 Notice Type: Patient Choice Letter Notice Delivered To: Patient Relationship to Patient: Truck Sales Manager Name: Delivery Method: HAND - Hand Delivered Maria Elena Days: Prior Verbal Notification: Recipient Understood Notice: Yes Recipient Signature: Yes Med Rec Note Co-signed by Attending: Coverage Notice Comment: [facility] Last DP export: 11/23/18 7:52 a Patient Name: AMANDO MURPHY Page 43300 at 0919 All edits/amendments must be made on the electronic document DICTATION DATE: 11/23/18918 SCHEDULE SUPERVISOR: FAYE 11/23/18918 RPT#: [id number] DC DATE:11/23/18 STATUS: DIS IN [facility] [address] [place] [address] END OF REPORT
== END 2018-11-23 09:07 | disposition home health service (06) | DRG 641 ==
LOC: D.M2 19:32
PROVIDERS: Emergency Medicine; Internal Medicine; Internal Medicine Nephrology; ADMIT Legal Medicine; ATTEND Legal Medicine
DX: E87.1 Hypo-osmolality and hyponatremia (principal); N39.0 Urinary tract infection, site not specified; F32.3 Major depressive disorder, single episode, severe with psychotic features; D64.9 Anemia, unspecified; K59.00 Constipation, unspecified

== ENCOUNTER 2018-12-11 08:32 | Emergency (ER) | payer MEDICARE, OTHER ==
[~2018-12-11] VITALS: Ht 170.2 cm; Wt 50.0 kg
[~2018-12-11 08:32] MED LIST changes: +BUPROPION HCL100 M1 PO; +LEVAQUIN750 MG PO
[2018-12-11 08:37] VITALS: Ht 170.2 cm; Wt 50.0 kg
[2018-12-11] MEDS ORDERED: PRILOSEC (08:39)
[2018-12-11] MEDS ORDERED: SULFAMETHOXAZOL1 TA2 PO (08:40)
[2018-12-11] MEDS ORDERED: [UNRECOGNIZED DRUG - REMARK] (08:40)
[2018-12-11 09:39] LABS: APPEARANCE CLEAR (CLEAR); BILIRUBIN NEGATIVE (NEGATIVE); COLOR YELLOW (YELLOW); GLUCOSE NEGATIVE (NEGATIVE); KETONE NEGATIVE (NEGATIVE); NITRITE NEGATIVE (NEGATIVE); PROTEIN NEGATIVE (NEGATIVE); UROBILINOGEN NORMAL (NORMAL)
[2018-12-11 10:03] VITALS: BP 132/78
== END 2018-12-11 10:04 | disposition home or self-care (01) ==
LOC: D.ER 08:32
PROVIDERS: Emergency Medicine
DX: R33.9 Retention of urine, unspecified (principal)

== ENCOUNTER 2019-01-10 23:24 | Emergency (ER) | payer MEDICARE ==
[~2019-01-10] VITALS: Ht 170.2 cm; Wt 54.5 kg
[~2019-01-10 23:24] MED LIST changes: +PRILOSEC; +SULFAMETHOXAZOL1 TA2 PO; +[UNRECOGNIZED DRUG - REMARK]
[2019-01-10 23:33] VITALS: BP 142/75; Ht 170.2 cm; Wt 54.5 kg
== END 2019-01-11 00:15 | disposition home or self-care (01) ==
LOC: D.ER 23:24
DX: T83.011A Breakdown (mechanical) of indwelling urethral catheter, initial encounter (principal)

== ENCOUNTER 2019-01-14 07:35 | Emergency (ER) | payer MEDICARE, OTHER ==
[~2019-01-14] VITALS: Ht 170.2 cm; Wt 52.3 kg
[2019-01-14 07:47] VITALS: Ht 170.2 cm; Wt 52.3 kg
[2019-01-14 08:26] LABS: BASOPHILS 0.7 % (0-2); EOSINOPHILS 1.7 % (0-7); HEMATOCRIT 34.1 % (36.0-48.0); HEMOGLOBIN 11.6 g/dL (12-16); IMMATURE GRANULOCYTES 0.2 % (0-5); LYMPHOCYTES 21.9 % (15-50); MCH 31.6 pg (26.0-34.0); MCV 92.9 fL (80.0-100.0); MONOCYTES 10.8 % (2-11); NEUTROPHILS 64.7 % (40-80); PLATELET COUNT 229 10x3/uL (130-400); RBC 3.67 10x6/uL (4.00-5.40); RDW 13.9 % (11.5-14.5); WBC 4.2 10x3/uL (4.8-10.8)
[2019-01-14 08:36] LABS: CALC OSMOLALITY 267 mosm/kg (275-300); CALCIUM 8.8 mg/dL (8.5-10.1); CHLORIDE - SERUM 102 mmol/L (98-107); CREATININE - SERUM 0.6 mg/dL (0.6-1.3); GLUCOSE 92 mg/dL (74-106); POTASSIUM - SERUM 3.6 mmol/L (3.5-5.1); SODIUM 135 mmol/L (136-145); UREA NITROGEN 7 mg/dL (7-18); eGFR NON AFRICAN AMERICAN > 90 mL/min (90-120)
[2019-01-14 08:56] LABS: APPEARANCE CLEAR (CLEAR); BILIRUBIN NEGATIVE (NEGATIVE); COLOR DK YELLOW (YELLOW); GLUCOSE NEGATIVE (NEGATIVE); KETONE NEGATIVE (NEGATIVE); NITRITE NEGATIVE (NEGATIVE); PROTEIN NEGATIVE (NEGATIVE); RED CELLS - URINE 0-5 /hpf (0-5); UROBILINOGEN NORMAL (NORMAL); WHITE CELLS - URINE 0-5 /hpf (0-5)
[2019-01-14 09:28] VITALS: BP 154/66
== END 2019-01-14 09:29 | disposition home or self-care (01) ==
LOC: D.ER 07:35
PROVIDERS: Emergency Medicine
DX: T83.9XXA Unspecified complication of genitourinary prosthetic device, implant and graft, initial encounter (principal); Y84.8 Other medical procedures as the cause of abnormal reaction of the patient, or of later complication, without mention of misadventure at the time of the procedure; K59.09 Other constipation; N39.490 Overflow incontinence

== ENCOUNTER 2019-01-15 18:43 | Emergency (ER) | payer MEDICARE, OTHER ==
[~2019-01-15] VITALS: Ht 170.2 cm; Wt 52.3 kg
[2019-01-15 18:47] VITALS: Ht 170.2 cm; Wt 52.3 kg
[2019-01-15 19:27] LABS: HEMOGLOBIN 10.4 g/dL (12-16); LYMPHOCYTES 30.5 % (15-50); MCH 32.5 pg (26.0-34.0); MCHC 34.7 g/dL (31.0-37.0); MCV 93.8 fL (80.0-100.0); MEAN PLATELET VOLUME 8.7 fL (7.4-10.4); NEUTROPHILS 60.7 % (40-80); PLATELET COUNT 199 10x3/uL (130-400); RDW 13.9 % (11.5-14.5); WBC 4.5 10x3/uL (4.8-10.8)
[2019-01-15 19:44] LABS: ALBUMIN 3.2 g/dL (3.4-5.0); ALKALINE PHOSPHATASE 37 U/L (46-116); ALT (SGPT) 36 U/L (10-68); BILIRUBIN - TOTAL 0.36 mg/dL (0.2-1.3); CALC OSMOLALITY 262 mosm/kg (275-300); CALCIUM 8.3 mg/dL (8.5-10.1); CARBON DIOXIDE 26.2 mmol/L (21.0-32.0); CHLORIDE - SERUM 97 mmol/L (98-107); CREATININE - SERUM 0.6 mg/dL (0.6-1.3); GLUCOSE 95 mg/dL (74-106); POTASSIUM - SERUM 3.4 mmol/L (3.5-5.1); SODIUM 132 mmol/L (136-145); UREA NITROGEN 7 mg/dL (7-18); eGFR NON AFRICAN AMERICAN > 90 mL/min (90-120)
[2019-01-15 20:15] VITALS: BP 122/64
== END 2019-01-15 20:15 | disposition home or self-care (01) ==
LOC: D.ER 18:43
PROVIDERS: Family Medicine
DX: T83.098A Other mechanical complication of other urinary catheter, initial encounter (principal); N39.0 Urinary tract infection, site not specified; R33.9 Retention of urine, unspecified

== ENCOUNTER 2019-01-18 05:43 | Emergency (ER) | payer MEDICARE, OTHER ==
[~2019-01-18] VITALS: Ht 170.2 cm; Wt 52.3 kg
[2019-01-18 05:54] VITALS: BP 146/69; Ht 170.2 cm; Wt 52.3 kg
[2019-01-18 06:40] LABS: BASOPHILS 0.3 % (0-2); HEMATOCRIT 31.7 % (36.0-48.0); HEMOGLOBIN 10.6 g/dL (12-16); IMMATURE GRANULOCYTES 0.3 % (0-5); LYMPHOCYTES 29.9 % (15-50); MCH 30.9 pg (26.0-34.0); MCHC 33.4 g/dL (31.0-37.0); MCV 92.4 fL (80.0-100.0); MEAN PLATELET VOLUME 9.2 fL (7.4-10.4); NEUTROPHILS 55.5 % (40-80); PLATELET COUNT 218 10x3/uL (130-400); RBC 3.43 10x6/uL (4.00-5.40); RDW 13.9 % (11.5-14.5)
[2019-01-18 07:14] LABS: ALBUMIN 3.2 g/dL (3.4-5.0); ALKALINE PHOSPHATASE 37 U/L (46-116); ALT (SGPT) 42 U/L (10-68); AMYLASE - SERUM 35 U/L (25-115); BILIRUBIN - TOTAL 0.42 mg/dL (0.2-1.3); CALC OSMOLALITY 269 mosm/kg (275-300); CALCIUM 8.5 mg/dL (8.5-10.1); CARBON DIOXIDE 28.9 mmol/L (21.0-32.0); CHLORIDE - SERUM 102 mmol/L (98-107); CREATININE - SERUM 0.4 mg/dL (0.6-1.3); GLUCOSE 95 mg/dL (74-106); LIPASE 119 U/L (73-393); POTASSIUM - SERUM 3.4 mmol/L (3.5-5.1); SODIUM 136 mmol/L (136-145); TROPONIN-I < 0.017 ng/mL (0.000-0.060); UREA NITROGEN 7 mg/dL (7-18); eGFR NON AFRICAN AMERICAN > 90 mL/min (90-120)
[2019-01-18 07:16] LABS: APPEARANCE CLEAR (CLEAR); BILIRUBIN NEGATIVE (NEGATIVE); COLOR YELLOW (YELLOW); GLUCOSE NEGATIVE (NEGATIVE); KETONE NEGATIVE (NEGATIVE); NITRITE NEGATIVE (NEGATIVE); PROTEIN NEGATIVE (NEGATIVE); UROBILINOGEN NORMAL (NORMAL)
[2019-01-18 07:17] LABS: BACTERIA FEW /hpf (NONE SEEN); EPITHELIAL CELLS OCC /hpf (0-5); MUCUS <1+ /lpf (NONE SEEN); RED CELLS - URINE RARE /hpf (0-5); WHITE CELLS - URINE 0-5 /hpf (0-5)
[2019-01-18] MEDS ORDERED: BENTYL10 MG PO (07:45)
[2019-01-18] MEDS ORDERED: AMITIZA8 MCG PO (07:49)
== END 2019-01-18 09:10 | disposition home or self-care (01) ==
LOC: D.ER 05:43
PROVIDERS: Family Medicine
DX: K58.9 Irritable bowel syndrome, unspecified (principal); F32.9 Major depressive disorder, single episode, unspecified

== ENCOUNTER → 2019-01-20 16:51 | Outpatient (CLI) | payer MEDICARE, OTHER ==
[2019-01-18 05:54] VITALS: BMI 18.0
[~2019-01-20 16:51] MED LIST changes: +AMITIZA8 MCG PO; +BENTYL10 MG PO
== END | disposition home or self-care (01) ==
LOC: D.LABREF 16:51
PROVIDERS: ATTEND Urology
DX: R31.9 Hematuria, unspecified (principal)

== ENCOUNTER 2020-08-27 23:24 | Inpatient (IN) | payer MEDICARE, OTHER ==
[~2020-08-27] VITALS: Ht 170.2 cm; Wt 45.4 kg
[~2020-08-27 23:24] MED LIST changes: +BACLOFEN10 MG PO; +BACTRIM DS TAB1 EAC1 PO; +BISACODYL5 MG PO; +CELEXA20 MG PO; +DULCOLAX STOOL100 MG PO; +ESTRACE 0.0142.5 GM VG; +FIBERCON625 MG PO; +FLOMAX0.4 MG PO; +FLUTICASONE PRO16 GM NASAL; +LOPERAMIDE HCL2 MG PO; +OMEPRAZOLE40 MG PO; +OMNICEF300 MG PO; +PHENERGAN25 M1 PO; +SEROQUEL25 MG PO; +TUMS PO; +ULTRAM50 MG PO; +VITAMIN D325 MC1 PO; +ZOFRAN4 MG PO
[2020-08-28] VITALS (9 sets, daily range): BP systolic 81–168; BP diastolic 37–67; BMI 15.7
[2020-08-28 00:19] LABS: BASOPHILS 0.4 % (0-2); EOSINOPHILS 1.6 % (0-7); HEMATOCRIT 31.3 % (36.0-48.0); HEMOGLOBIN 10.5 g/dL (12-16); IMMATURE GRANULOCYTES 0.5 % (0-5); LYMPHOCYTE ABS# 1.01 10x3/uL (1.18-3.74); LYMPHOCYTES 18.4 % (15-50); MCH 31.8 pg (26.0-34.0); MCHC 33.5 g/dL (31.0-37.0); MCV 94.8 fL (80.0-100.0); MEAN PLATELET VOLUME 9.9 fL (7.4-10.4); MONOCYTES 5.5 % (2-11); NEUTROPHIL ABS# 4.04 10x3/uL (1.56-6.13); NEUTROPHILS 73.6 % (40-80); PLATELET COUNT 195 10x3/uL (130-400); RDW 12.7 % (11.5-14.5); WBC 5.5 10x3/uL (4.8-10.8)
[2020-08-28 00:29] LABS: APTT 34.9 SECONDS (22.8-39.4); CALC OSMOLALITY 266 mosm/kg (275-300); CALCIUM 9.6 mg/dL (8.5-10.1); CARBON DIOXIDE 28.7 mmol/L (21.0-32.0); CHLORIDE - SERUM 96 mmol/L (98-107); CREATININE - SERUM 0.6 mg/dL (0.6-1.3); GLUCOSE 117 mg/dL (74-106); INR 1.02 (0.85-1.17); POTASSIUM - SERUM 3.6 mmol/L (3.5-5.1); PROTIME 12.4 SECONDS (11.6-15.0); SODIUM 132 mmol/L (136-145); UREA NITROGEN 14 mg/dL (7-18); eGFR NON AFRICAN AMERICAN > 90 mL/min (90-120)
[2020-08-28 00:35] LABS: ALBUMIN 3.8 g/dL (3.4-5.0); ALKALINE PHOSPHATASE 59 U/L (30-120); ALT (SGPT) 50 U/L (10-68); BILIRUBIN - TOTAL 0.45 mg/dL (0.2-1.3); PROTEIN - SERUM 7.1 g/dL (6.4-8.2)
[2020-08-28 00:40] LABS: BILIRUBIN NEGATIVE (NEGATIVE); KETONE NEGATIVE (NEGATIVE); NITRITE NEGATIVE (NEGATIVE); UROBILINOGEN NORMAL mg/dL (< 2)
--- NOTE | 2020-08-28 02:16 | NUR ---
RECEIVED PT FROM ER VIA BED. PT LAYING IN BED, EYES CLOSED, EVEN RESPIRATIONS, AROUSES TO VOICE, ANSWERS QUESTIONS APPROPRIATELY. PIV TO RIGHT AC PATENT AND S/L, NO REDNESS OR SWELLING. PUGA IN PLACE, PATENT AND DRAINING TO GRAVITY, STATLOCK IN PLACE ON LEFT THIGH, URINE CLEAR YELLOW. EDUCATED PT ON CL AND NEEDS, VERBALIZED UNDERSTANDING. BED LOW, ALARM ON, CL IN REACH.
--- NOTE | 2020-08-28 02:29 | NUR ---
PLACED TELEMETRY ON PT, 69 SR WITH PVCS. PERFORMED HIPPA CLEANSE. INITIATED ALL FALL PRECAUTIONS. PLACED SCDS ON PT. ISP AT BEDSIDE. BED LOW, ALARM ON, CL IN REACH.
[2020-08-28] MEDS ORDERED: MIRALAX17 GM PO (02:36)
[2020-08-28] MEDS ORDERED: COLACE100 MG PO (02:37)
[2020-08-28 05:41] LABS: BASOPHILS 0.2 % (0-2); EOSINOPHILS 0.1 % (0-7); HEMATOCRIT 27.5 % (36.0-48.0); IMMATURE GRANULOCYTES 0.2 % (0-5); MCH 31.3 pg (26.0-34.0); MCHC 32.7 g/dL (31.0-37.0); MCV 95.5 fL (80.0-100.0); MEAN PLATELET VOLUME 10.7 fL (7.4-10.4); MONOCYTES 6.5 % (2-11); NEUTROPHIL ABS# 8.75 10x3/uL (1.56-6.13); PLATELET COUNT 180 10x3/uL (130-400); RBC 2.88 10x6/uL (4.00-5.40); RDW 12.6 % (11.5-14.5)
[2020-08-28 05:49] LABS: CALC OSMOLALITY 266 mosm/kg (275-300); CALCIUM 8.8 mg/dL (8.5-10.1); CARBON DIOXIDE 27.8 mmol/L (21.0-32.0); CHLORIDE - SERUM 98 mmol/L (98-107); CREATININE - SERUM 0.6 mg/dL (0.6-1.3); GLUCOSE 133 mg/dL (74-106); MAGNESIUM - SERUM 1.9 mg/dL (1.8-2.4); PHOSPHOROUS 3.6 mg/dL (2.5-4.9); POTASSIUM - SERUM 3.5 mmol/L (3.5-5.1); SODIUM 132 mmol/L (136-145); UREA NITROGEN 13 mg/dL (7-18); eGFR NON AFRICAN AMERICAN > 90 mL/min (90-120)
--- NOTE | 2020-08-28 08:29 | NUR ---
REHAB PRESCREEN RECEIVED. PATIENT HAS NOT HAD HER THERAPY EVALS, AND THEREFORE WE WILL START WORKING UP THE SCREEN AFTER THESE ARE COMPLETED. IF SHE MEETS CRITERIA AND IS WILLING TO COME TO OUR UNIT, WE WILL LET CASE MANAGEMENT KNOW THE DETERMINATION. THANK YOU FOR THE REFERRAL. CARMEN ZAVALA RN CLINICAL LIAISON, INPATIENT REHAB.
--- NOTE | 2020-08-28 12:54 | NUR ---
OT NOTE: PT SCHEDULED FOR SURGERY TODAY. WILL EVAL TOMORROW. APOLINAR MARIO, OTR/L
--- NOTE | 2020-08-28 19:00 | NUR ---
RECEIVED SHIFT REPORT FROM DAY SHIFT
--- NOTE | 2020-08-28 19:17 | NUR ---
PT RESTING WITH EYES CLOSED, RESP QUIET, NO DISTRESS NOTED, LEFT UNDISTURBED AT THIS TIME, BED IN LOW POSITION, SIDE RAILS X 2, CALL LIGHT IN REACH
--- NOTE | 2020-08-28 20:00 | NUR ---
PT RESTING WITH EYES CLOSED, AROUSES TO SOFT VERBAL STIMULATION, VS OBTAINED, IV TO RIGHT AC INTACT WITH NO REDNESS OR EDEMA INFUSING NS AT 50ML/HR, PT REPORTS FLATUS, PUGA CATH INTACT DRAINING DARK YELLOW URINE, INC WITH SMALL DRESSING/CLEAR DRESSING CDI WITH NO DRAINAGE NOTED, FRESH ICE PACK TO RIGHT HIP, PT REPOSITIONED TO LEFT SIDE WITH PILLOW BEHIND BACK FOR COMFORT AND SUPPORT, REPORTS THAT FEELS BETTER TO HER "BOTTOM", SCD'S ON AND WORKING PROPERLY, TELEMETRY IN PLACE, EARL HOFFMANN RN, CHARGE NURSE, TO ROOM FOR EVALUATION OF BP, WILL NOTIFY JUANCHO FALCON RN, CARD GRADER
--- NOTE | 2020-08-28 20:12 | NUR ---
JUANCHO FALCON APN PAGED
--- NOTE | 2020-08-28 20:14 | NUR ---
JUANCHO FALCON APN CALLS UNIT, REPORT OF PT'S BP, ORDERS TO BOLUS 500MLS NS
--- NOTE | 2020-08-28 20:17 | NUR ---
BOLUS STARTED PER JUANCHO FALCON APN ORDERS
--- NOTE | 2020-08-28 20:47 | NUR ---
PT RESTING WITH EYES CLOSED, AROUSES TO SOFT VERBAL STIMULATION, BOLUS FINSIHED INFUSING, 1/2NS HUNG AND ADM 2100 MEDS PER MD ORDERS, SEE EMAR, WITH FRESH H20, PT GEORGETTE WELL, BP OBTAINED, 93/40, THIS RN AND EARL HOFFMANN, RN, CHARGE NURSE WILL CONTINUE TO MONITOR, PT DENIES FURTHER NEEDS OR PAIN AT THIS TIME
--- NOTE | 2020-08-28 22:22 | NUR ---
PT RESTING WITH EYES CLOSED, RESP QUIET, NO DISTRESS NOTED, LEFT UNDISTURBED AT THIS TIME
--- NOTE | 2020-08-28 22:39 | NUR ---
PAGED JUANCHO FALCON, CHEMICAL TREATMENT PLANT TECHNICIAN
--- NOTE | 2020-08-28 22:40 | NUR ---
JUANCHO FALCON APRN CALLS UNIT, REPORT OF BP AND OUTPUT, ORDERS TO D/C 1/2NS, ADM 500ML BOLUS OF NS AND THEN RUN AT 75ML/HR, ORDERS READ BACK AND VERIFIED
--- NOTE | 2020-08-28 23:11 | NUR ---
PT RESTING WITH EYES CLOSED, AROUSES TO SOFT VERBAL STIMULATION, NS HUNG FOR BOLUS AT THIS TIME PER JUANCHO FALCON APRN ORDERS, PT INQUIRED ABOUT A PAIN PILL AT THIS TIME, INFORMED PT THAT WE NEED TO GET HER BP UP FIRST, PT VERBALIZES UNDERSTANDING, ASSISTED PT WITH H20, PT DENIES FURTHER NEEDS
[2020-08-29] VITALS (15 sets, daily range): BP systolic 101–147; BP diastolic 36–81; Ht 170.2 cm; Wt 45.4 kg
--- NOTE | 2020-08-29 00:11 | NUR ---
BOLUS FINISHED INFUSING, NS STARTED AT 75ML/HR PER JUANCHO FALCON APRN ORDERS, VS OBTAINED, PT REPOSITIONED TO RIGHT SIDE PER THIS RN AND MAGGIE HOFFMANN RN, WITH PILLOW BEHIND BACK FOR COMFORT AND SUPPORT, OUTPUT IS INCREASING, WILL CONTINUE TO MONITOR, BED IN LOW POSITION, SIDE RAILS X 2, CALL LIGHT IN REACH
--- NOTE | 2020-08-29 02:00 | NUR ---
PT RESTING WITH EYES CLOSED, RESP QUIET, NO DISTRESS NOTED, LEFT UNDISTURBED AT THIS TIME
--- NOTE | 2020-08-29 04:11 | NUR ---
PT RESTING WITH EYES CLOSED, AROUSES TO SOFT VERBAL STIMULATION, VS OBTAINED, PUGA CATH EMPTIED, PT CONSUMED WHOLE CUP OF H20 SERVED, PT REQUESTED AND PROVIDED WARM BLANKET, ANCEF HUNG PER MD ORDERS, SEE EMAR, PT DENIES FURTHER NEEDS
--- NOTE | 2020-08-29 05:15 | NUR ---
PT AWAKE, NEW BAG OF NS HUNG PER MD ORDERS, SEE EMAR, PT REQUESTS TO TAKE LINZESS AT 6AM AND NO EARLIER, INFORMED PT THAT I WILL BE BACK AT THAT TIME TO ADM THE [facility]ESS AND PRILOSEC, PT DENIES FURTHER NEEDS
--- NOTE | 2020-08-29 06:02 | NUR ---
PT AWAKE, ADM 0600 MEDS PER MD ORDERS, SEE EMAR, WITH FRESH H20, PT REPOSITIONED IN BED, DENIES FURTHER NEEDS
--- NOTE | 2020-08-29 07:30 | NUR ---
AWAKE AND ALERT. ORIENTED X3. NO C/O AT THIS TIME. LUNGS ARE CLEAR BILATERALLY, NO COUGH NOTED. USED IS INSTRUCTED. SKIN IS INTACT WITHOUT REDNESS EXCEPT 3 SMALL SITES TO RIGHT HIP WHICH HAVE DRY INTACT DRESSINGS IN PLACE. IV TO RIGHT AC IS PATENT WITHOUT REDNESS AT INSERTION SITE. CHRONIC PUGA IN PLACE WITH CLEAR YELLOW URINE. DENIES FURTHER NEEDS.
--- NOTE | 2020-08-29 07:42 | NUR ---
BP IS UP AT THIS TIME. REQUESTED AND GIVNE ONE 5MG HYDROCODONE PO FOR C/O RIGHT HIP PAIN LEVEL 10. WILL MONITOR.
--- NOTE | 2020-08-29 09:00 | NUR ---
ATE ABOUT HALF OF BREAKFAST TRAY. TOOK AM MEDS WITHOUT DIFFICULTY. NO NEEDS NOTED.
[2020-08-29 09:22] LABS: CALC OSMOLALITY 259 mosm/kg (275-300); CALCIUM 8.1 mg/dL (8.5-10.1); CARBON DIOXIDE 26.4 mmol/L (21.0-32.0); CHLORIDE - SERUM 97 mmol/L (98-107); CREATININE - SERUM 0.6 mg/dL (0.6-1.3); GLUCOSE 120 mg/dL (74-106); PHOSPHOROUS 3.2 mg/dL (2.5-4.9); SODIUM 129 mmol/L (136-145); UREA NITROGEN 13 mg/dL (7-18); eGFR NON AFRICAN AMERICAN > 90 mL/min (90-120)
[2020-08-29 09:23] LABS: POTASSIUM - SERUM 4.4 mmol/L (3.5-5.1)
[2020-08-29 09:26] LABS: BASOPHILS 0.1 % (0-2); EOSINOPHILS 0.3 % (0-7); IMMATURE GRANULOCYTES 0.3 % (0-5); LYMPHOCYTE ABS# 0.96 10x3/uL (1.18-3.74); LYMPHOCYTES 12.9 % (15-50); MCH 31.6 pg (26.0-34.0); MCV 95.9 fL (80.0-100.0); MEAN PLATELET VOLUME 9.8 fL (7.4-10.4); MONOCYTES 10.5 % (2-11); NEUTROPHIL ABS# 5.64 10x3/uL (1.56-6.13); NEUTROPHILS 75.9 % (40-80); PLATELET COUNT 149 10x3/uL (130-400); RDW 12.6 % (11.5-14.5)
--- NOTE | 2020-08-29 09:30 | NUR ---
AMBULATED IN HALLWAY WITH PT USING RW. POSITIONED IN CHAIR FOR COMFORT AFTER AMBULATION.
[2020-08-29 09:48] LABS: WBC 7.4 10x3/uL (4.8-10.8)
[2020-08-29 09:50] LABS: HEMATOCRIT 18.8 % (36.0-48.0); HEMOGLOBIN 6.2 g/dL (12-16); RBC 1.96 10x6/uL (4.00-5.40)
--- NOTE | 2020-08-29 10:00 | NUR ---
WANTS TO GO BACK TO BED. WILL MONITOR.
--- NOTE | 2020-08-29 10:15 | NUR ---
UP TO BSC WITH ONE PERSON MIN ASSIST. NO BM AT THIS TIME. REPOSITIONED IN CHAIR AT BEDSIDE FOR COMFORT.
--- NOTE | 2020-08-29 11:04 | NUR ---
REQUESTED TORADOL INSTEAD OF HYDROCODONE. WANTS LACTULOSE WELL. TRIED TO EXPLAIN WHY NO LACTULOSE AT THIS TIME. TEXT SENT TO DR. CARO RE MED CHANGE.
--- NOTE | 2020-08-29 12:13 | NUR ---
ATE MOST OF LUNCH EXCEPT COTTAGE CHEESE, YOGURT ORDERED. REPOSITIONED IN BED FOR COMFORT. FIRST UNIT PRBC UP AT THIS TIME. VSS. WILL MONITOR.
--- NOTE | 2020-08-29 12:14 | NUR ---
TRANSFUSION CONTINUES WITHOUT COMPLICATIONS. VSS.
--- NOTE | 2020-08-29 12:39 | OP ---
PATIENT NAME: AMANDO BAUMANN MEDICAL RECORD: [id number] :40 LOCATION:D.M3 D.1209 ADMISSION DATE:08/28/20 SURGEON: YASMEEN CARO DO DATE OF OPERATION: 08/28/2020 PROCEDURE PERFORMED: Right hip intramedullary nailing. PREOPERATIVE DIAGNOSIS: Right hip intertrochanteric fracture, closed and displaced. POSTOPERATIVE DIAGNOSIS: Right hip intertrochanteric fracture, closed and displaced. INDICATIONS: Ms. Baumann is an 80-year-old female who fell onto her right side yesterday, brought to the ER and seem to have a right hip fracture. She was admitted overnight and was informed that she will need to do something surgical for her hip so she could walk on it. She is in extreme amount of pain and she is aware of the risks of this including infection, bleeding, damage to nerves or vessels, need for further surgery, continued pain, malunion, nonunion, need for further surgery, failure of implants, cutout, blood clots, and even and she signed the consent. SURGEON: Yasmeen Caro DO DESCRIPTION OF PROCEDURE: The patient was taken to the operative suite, laid in supine position, given general anesthetic and intubated. She was given a gram of Ancef. She was then positioned on the [place] table. A time-out was then performed. Everyone was in agreement with the correct side, site, patient and procedure. I then began by reducing the hip under x-ray. We then prepped and draped the right hip in a sterile fashion. I then made an incision just proximal to the greater trochanter and made careful dissection down to the trochanter to get the starting pin in the trochanter and down the shaft. I then reamed up, starting at 9, went to a 10.5 and then went up to a 13, measured the nail to be a 340 and then put an 11 nail down. We then put in a lag screw through the guide. I first positioned a pin. Once the pin was in adequate position on AP and lateral, I put a 100-mm x 10.5 lag screw in and then compressed it after traction was let off and locked the nail into the lag screw and then put an anti-rotational screw of 80 mm above that. Through a lateral incision I had made for the lag screw and went distally and got perfect circles and made a small incision at the distal lateral femur and with the dynamic hole drilled a hole through the femur through the dynamic hole, measured it to be a 38 mm and put in a 38 mm screw. It was in good position and then held well on inserting the screw. We got x-rays, AP and oblique to ensure the nail was in the femur and I then irrigated the wounds, closed the most proximal wound IT band with #1 Vicryl in a [id number]-er-[id number] fashion and the skin on the rest of them and the proximal with 2-0 Vicryl in inverted interrupted fashion and placed Prineo glue on them. Once the glue had dried, I put on Telfa and Tegaderm. She was then awakened and taken to recovery in stable condition. BLOOD LOSS: Approximately 150 mL. COMPLICATIONS: None. TRANSINT:[id number] Voice Confirmation ID: [id number] DOCUMENT ID: [id number] OPERATIVE REPORT [id number] AMANDO BAUMANN MICHAEL D, DO at 1239 CC: [id number] DICTATION DATE: 08/28/20 1601 LUNCHROOM AIDE: 08/28/20 1831 ADM IN [facility] [address] [id number]
--- NOTE | 2020-08-29 13:15 | NUR ---
TRANSFUSION CONTINUES WITHOUT DIFFICULTY. DENIES NEEDS. VSS.
--- NOTE | 2020-08-29 14:15 | NUR ---
TRANSFUSION CONTINUES WITHOUT SIGNS OF REACTION. VSS.
--- NOTE | 2020-08-29 14:45 | NUR ---
VISITED WITH PATIENT REGARDING ACUTE REHAB SERVICES. HAS AGRRED TO [facility] ADMISSION AT [facility] DISCHARGE FROM [facility]THO FLOOR. CASE MANAGEMENT NOTIFIED. CHRISTIANA HERNANDEZ LPN. CLINICAL LIAISON
--- NOTE | 2020-08-29 15:30 | NUR ---
SECOND UNIT PRBC TRANSFUSING AT THIS TIME. VSS.
--- NOTE | 2020-08-29 15:45 | NUR ---
TRANSFUSION CONTINUES WITHOUT COMPLICATIONS. VSS.
--- NOTE | 2020-08-29 15:54 | MORECARE ---
CASE MANAGEMENT DISCHARGE SUMMARY PATIENT: AMANDO MURPHY UNIT: [id number] ADM DATE: 08/28/20 AGE: 80 : 40 SEX: F [facility] AUTHOR: JULIUS,DOC PHYSICIAN: REFERRING PHYSICIAN: TIA BRITT MD DATE OF SERVICE: 08/29/20 Case Management Discharge Planning Summary DCP REVIEW SUMMARY ANTICIPATED D/C DATE: 08/30/2020 EXPECTED LOS : 2 CASE STATUS: DCP Initiated INITIAL REVIEW: 08/29/2020 INITIAL REVIEWER: Juju Novak FINAL DISCHARGE DISPOSITION: : FINAL REVIEWER: FINAL REVIEW DATE: DCP Focus Questions & Answers DCP Screen QUESTION: ANSWER High Risk Factors: : High risk meds DCP Evaluation QUESTION: ANSWER Patient's ability to cope with chronic illness : d. No chronic illness Physical Status: : Partial care dependence Partial Dependence, assistance required for: : Bathing Partial Dependence, assistance required for: : Dressing Baseline cognitive status: : *Oriented to person, place, situation, time and present Would patient like to participate in any Care Coordination programs (if applicable): : Not applicable Mental health screen: : No mental health history DCP Re-evaluation QUESTION: ANSWER Would patient like to participate in any Care Coordination programs (if applicable): : Not applicable PATIENT: AMANDO MURPHY ENCOUNTER: [id number] MEDICAL RECORD#: [id number] ADMISSION DATE: 08/28/2020 DISCHARGE DATE: ATTENDING MD: : AGE: 80 MARITAL STATUS: D DC PLAN ID: [id number] FACILITY: [facility] PRINTED ON: 08/29/20 15:54 CT All edits/amendments must be made on the electronic document DICTATION DATE: 08/29/20 1554 RECORDING ARTIST: DM 08/29/20 1554 RPT#: [id number] DC DATE: STATUS: ADM IN [facility] [address] [place] [address] END OF REPORT
--- NOTE | 2020-08-29 16:10 | MORECARE ---
CASE MANAGEMENT DISCHARGE SUMMARY PATIENT: AMANDO MURPHY UNIT: [id number] ADM DATE: 08/28/20 AGE: 80 : 40 SEX: F ROOM/BED: D.1209 AUTHOR: JULIUSDOC PHYSICIAN: REFERRING PHYSICIAN: TIA BRITT MD DATE OF SERVICE: 08/29/20 Case Management Discharge Planning Summary DCP REVIEW SUMMARY ANTICIPATED D/C DATE: 08/30/2020 EXPECTED LOS : 2 CASE STATUS: DCP Initiated INITIAL REVIEW: 08/29/2020 INITIAL REVIEWER: Juju Novak FINAL DISCHARGE DISPOSITION: : FINAL REVIEWER: FINAL REVIEW DATE: DCP Focus Questions & Answers DCP Screen QUESTION: ANSWER High Risk Factors: : High risk meds DCP Evaluation QUESTION: ANSWER Patient's ability to cope with chronic illness : a. Adequate (0-3 ED visits in 6 mos., adequate financial resources, attends scheduled appts.) Patient's current cognitive status: : *Oriented to person, place, situation, time and present Family / Caregiver's ability to cope with chronic illness: : a. Adequate (ability to meet patient's medical needs, ensures patient attends medical appts.) Patient and/or caregiver agree upon recommended discharge plan? : Yes Physical Status: : Partial care dependence Functional screen assessment: : Unable to manage ADLs without immediate ongoing assistance Does the patient have the ability to pay for or attain post discharge needs / services? : Yes Partial Dependence, assistance required for: : Bathing Partial Dependence, assistance required for: : Dressing Living Arrangements: : Home Alone with Support Is there a likelihood that the patient will require additional services to return to the preadmission environment? : Yes Equipment needed for post hospitalization: : None Baseline cognitive status: : *Oriented to person, place, situation, time and present Patient with capacity for self-care or can be cared for in same environment as prior to hospitalization? : No Results of this evaluation have been discussed with: : Patient Preadmission facility can/cannot provide post hospital level of care needs: : Cannot - at higher level of care than preadmission Physical environment modification needed / anticipated for discharge: : No Medication Management: : Patient states can afford medications Pharmacy name(s): : [facility] Planned post hospital services available for patient? : Yes Does Patient have transportation to get home and to follow-up medical appointments when discharged from the hospital? : Yes Planned post hospital services covered by insurance plan? : Yes Would patient like to participate in any Care Coordination programs (if applicable): : Not applicable Does the patient have electricity at home? : Yes Does the patient have running water in their house? : Yes Equipment in use: : Bedside Commode Equipment in use: : Cane - Quad Equipment in use: : Home Oxygen with Nasal Cannula Equipment in use: : Hospital Bed Equipment in use: : Shower Chair Equipment agency name and contact information: : [facility] Mental health screen: : No mental health history Psychosocial status: : Independent adult (65+) Abuse/Neglect: : None Resources / Services in place: : Hospice - home Contact information for resources in use: : [facility], [facility] Re-evaluation QUESTION: ANSWER Would patient like to participate in any Care Coordination programs (if applicable): : Not applicable PATIENT: AMANDO MURPHY ENCOUNTER: [id number] MEDICAL RECORD#: [id number] ADMISSION DATE: 08/28/2020 DISCHARGE DATE: ATTENDING MD: TANYA: AGE: 80 MARITAL STATUS: D DC PLAN ID: [id number] FACILITY: [facility] PRINTED ON: 08/29/20 16:09 CT All edits/amendments must be made on the electronic document DICTATION DATE: 08/29/201608 [employer] WORKER: FAYE 08/29/201608 [facility]#: [id number] DC DATE: STATUS: ADM IN [facility] [address] [place] [address] END OF REPORT
--- NOTE | 2020-08-29 16:36 | MORECARE ---
CASE MANAGEMENT DISCHARGE SUMMARY PATIENT: AMANDO MURPHY UNIT: [id number] ADM DATE: 08/28/20 AGE: 80 : 40 SEX: F ROOM/BED: D.1209 AUTHOR: JULIUS,DOC PHYSICIAN: REFERRING PHYSICIAN: TIA BRITT MD DATE OF SERVICE: 08/29/20 Case Management Discharge Planning Summary COMMENTS ENTERED DATE: 08/29/20 16:07 CT COMMENT TYPE: Discharge Planning REVIEWER: Juju Novak CM met with patient to discuss discharge planning / needs. Patient states she plans to discharge to [facility]. Signed INOCENCIA for [facility]. States prior to hospitalization she got Hospice from [facility] and they provide all patient's equipment. States she gets Hospice Wednesday thru Wednesday. States she private pays a friend to help her three days / week. States the home environment is safe. Denies any other discharge planning needs at this time. CM explained and served DC IMM. Copy on chart. CM called [facility]. Was told patient revocated Hospice yesterday. DCP REVIEW SUMMARY ANTICIPATED D/C DATE: 08/30/2020 EXPECTED LOS : 2 CASE STATUS: DCP Initiated INITIAL REVIEW: 08/29/2020 INITIAL REVIEWER: Juju Novak FINAL DISCHARGE DISPOSITION: : FINAL REVIEWER: FINAL REVIEW DATE: DCP Focus Questions & Answers DCP Screen QUESTION: ANSWER High Risk Factors: : High risk meds DCP Evaluation QUESTION: ANSWER Patient's ability to cope with chronic illness : a. Adequate (0-3 ED visits in 6 mos., adequate financial resources, attends scheduled appts.) Patient's current cognitive status: : *Oriented to person, place, situation, time and present Family / Caregiver's ability to cope with chronic illness: : a. Adequate (ability to meet patient's medical needs, ensures patient attends medical appts.) Patient and/or caregiver agree upon recommended discharge plan? : Yes Physical Status: : Partial care dependence Functional screen assessment: : Unable to manage ADLs without immediate ongoing assistance Does the patient have the ability to pay for or attain post discharge needs / services? : Yes Partial Dependence, assistance required for: : Bathing Partial Dependence, assistance required for: : Dressing Living Arrangements: : Home Alone with Support Is there a likelihood that the patient will require additional services to return to the preadmission environment? : Yes Equipment needed for post hospitalization: : None Baseline cognitive status: : *Oriented to person, place, situation, time and present Patient with capacity for self-care or can be cared for in same environment as prior to hospitalization? : No Results of this evaluation have been discussed with: : Patient Preadmission facility can/cannot provide post hospital level of care needs: : Cannot - at higher level of care than preadmission Physical environment modification needed / anticipated for discharge: : No Medication Management: : Patient states can afford medications Pharmacy name(s): : [facility] Planned post hospital services available for patient? : Yes Does Patient have transportation to get home and to follow-up medical appointments when discharged from the hospital? : Yes Planned post hospital services covered by insurance plan? : Yes Would patient like to participate in any Care Coordination programs (if applicable): : Not applicable Does the patient have electricity at home? : Yes Does the patient have running water in their house? : Yes Equipment in use: : Bedside Commode Equipment in use: : Cane - Quad Equipment in use: : Home Oxygen with Nasal Cannula Equipment in use: : Hospital Bed Equipment in use: : Shower Chair Equipment agency name and contact information: : [facility] Mental health screen: : No mental health history Psychosocial status: : Independent adult (65+) Abuse/Neglect: : None Resources / Services in place: : Hospice - home Contact information for resources in use: : [facility], [facility] Re-evaluation QUESTION: ANSWER Would patient like to participate in any Care Coordination programs (if applicable): : Not applicable PATIENT: AMANDO MURPHY ENCOUNTER: [id number] MEDICAL RECORD#: [id number] ADMISSION DATE: 08/28/2020 DISCHARGE DATE: ATTENDING MD: TANYA: AGE: 80 MARITAL STATUS: D DC PLAN ID: [id number] FACILITY: [facility] PRINTED ON: 08/29/20 16:36 CT All edits/amendments must be made on the electronic document DICTATION DATE: 08/29/201635 DAYCARE DIRECTOR: FAYE 08/29/201635 RPT#: [id number] DC DATE: STATUS: ADM IN [facility] [address] [place] [address] END OF REPORT
--- NOTE | 2020-08-29 17:15 | NUR ---
TRANSFUSION CONTINUES WITHOUT DIFFICULTY. VSS.
--- NOTE | 2020-08-29 17:40 | NUR ---
REQUESTED AND GIVNE 50MG TRAMADOL PO FOR C/O ABDOMINAL PAIN LEVEL 10. WILL MONITOR.
--- NOTE | 2020-08-29 18:00 | NUR ---
TRANSFUSION COMPLETED. NO COMPLICATIONS OR SIGNS OF REACTION NOTED. VSS.
--- NOTE | 2020-08-29 20:00 | NUR ---
ALERT RESTING IN BED C/O PAIN TO RIGHT HIP, SEE SHIFT ASSESSMENT CALL LIGHT IN REACH
[2020-08-30 03:50] VITALS: BP 134/62
[2020-08-30 06:35] LABS: BASOPHILS 0.2 % (0-2); EOSINOPHILS 0.8 % (0-7); IMMATURE GRANULOCYTES 0.2 % (0-5); LYMPHOCYTE ABS# 0.75 10x3/uL (1.18-3.74); LYMPHOCYTES 11.8 % (15-50); MCH 30.9 pg (26.0-34.0); MCHC 33.1 g/dL (31.0-37.0); MEAN PLATELET VOLUME 10.1 fL (7.4-10.4); MONOCYTES 13.1 % (2-11); NEUTROPHIL ABS# 4.69 10x3/uL (1.56-6.13); NEUTROPHILS 73.9 % (40-80); RDW 13.9 % (11.5-14.5); WBC 6.3 10x3/uL (4.8-10.8)
[2020-08-30 06:36] LABS: HEMATOCRIT 24.5 % (36.0-48.0); HEMOGLOBIN 8.1 g/dL (12-16); MCV 93.5 fL (80.0-100.0); PLATELET COUNT 117 10x3/uL (130-400); RBC 2.62 10x6/uL (4.00-5.40)
[2020-08-30 07:04] LABS: CALC OSMOLALITY 260 mosm/kg (275-300); CARBON DIOXIDE 26.6 mmol/L (21.0-32.0); CHLORIDE - SERUM 100 mmol/L (98-107); CREATININE - SERUM 0.5 mg/dL (0.6-1.3); GLUCOSE 103 mg/dL (74-106); MAGNESIUM - SERUM 1.9 mg/dL (1.8-2.4); POTASSIUM - SERUM 3.8 mmol/L (3.5-5.1); SODIUM 131 mmol/L (136-145); eGFR NON AFRICAN AMERICAN > 90 mL/min (90-120)
[2020-08-30 07:09] LABS: UREA NITROGEN 7 mg/dL (7-18)
[2020-08-30 07:37] VITALS: BP 139/53
--- NOTE | 2020-08-30 07:45 | NUR ---
AWAKE AND ALERT. ORIENTED X3. LUNGS ARE CLEAR BILATERALLY, NO COUGH NOTED. INSTRUCTED IN USE OF IS AGAIN. PATIENT MEMORY IS POOR FOR SHORT TERM. SKIN IS INTACT WITH REDNESS NOTED TO COCCYX AREA AND 3 SMALL INCISIONS TO RIGHT HIP, WHICH HAVE DRY INTACT DRESSINGS IN PLACE. IV TO RIGHT AC IS PATENT WITHOUT REDNESS AT INSERTION SITE. PUGA PATENT WITH CLEAR YELLOW URINE. DENIES NEEDS.
[2020-08-30] MEDS ORDERED: CHRONULAC30 ML PO (08:38)
[2020-08-30] MEDS ORDERED: ACETAMINOPHEN500 M1 PO (08:41)
[2020-08-30] MEDS ORDERED: HYDRALAZINE20 MG/ML IV (08:41)
[2020-08-30] MEDS ORDERED: ASPIRIN81 MG PO (08:41)
[2020-08-30] MEDS ORDERED: Narcan INJ IV (08:42)
[2020-08-30] MEDS ORDERED: ULTRAM50 MG PO ×2 (08:42→12:50)
[2020-08-30] MEDS ORDERED: Morphine Sulfate IV (08:42)
[2020-08-30] MEDS ORDERED: HYDROCODON-ACE1 EAC7 PO ×2 (08:42→11:50)
[2020-08-30] MEDS ORDERED: COLACE100 MG PO (08:42)
--- NOTE | 2020-08-30 09:08 | NUR ---
ATE 75% OF BREAKFAST. TOOK AM MEDS WITHOUT DIFFICULTY. REQUESTED AND GIVEN 5MG HYDROCODONE PO FOR C/O PAIN TO RIGHT HIP LEVEL 10. WILL MONITOR.
--- NOTE | 2020-08-30 09:30 | NUR ---
DRESSING CHANGED TO RIGHT HIP PER ORDERS. GLUE CAME LOOSE ON THE 2 UPPER INCISIONS. MASTIC AND SS APPLIED TO THESE. TOLERATED WELL. UP TO BSC FOR BM WITHOUT SUCCESS. BUTT BALM APPLIED TO REDDENED AREA ON COCYX AREA.
--- NOTE | 2020-08-30 11:02 | NUR ---
DISCHARGED TO INPATIENT REHAB. DISCHARGE INSTRUCTIONS GIVEN BOTH VERBALLY AND WRITTEN. ALL QUESTIONS ANSWERED. TRANSFERRED TO ROOM 1117A VIA . REPORT CALLED TO HODAN FERGUSON LPN ON REHAB. ALL QUESTIONS ANSWERED. ALL BELONGINGS WITH PATIENT.
--- NOTE | 2020-08-30 11:20 | MORECARE ---
CASE MANAGEMENT DISCHARGE SUMMARY PATIENT: AMANDO UMRPHY UNIT: [id number] ADM DATE: 08/28/20 AGE: 80 : 40 SEX: F ROOM/BED: D.1209 AUTHOR: JULIUS,DOC PHYSICIAN: REFERRING PHYSICIAN: TIA BRITT MD DATE OF SERVICE: 08/30/20 Case Management Discharge Planning Summary COMMENTS ENTERED DATE: 08/29/20 16:07 CT COMMENT TYPE: Discharge Planning REVIEWER: Juju Novak CM met with patient to discuss discharge planning / needs. Patient states she plans to discharge to [facility]. Signed INOCENCIA for [facility]. States prior to hospitalization she got Hospice from [facility] and they provide all patient's equipment. States she gets Hospice Wednesday thru Wednesday. States she private pays a friend to help her three days / week. States the home environment is safe. Denies any other discharge planning needs at this time. CM explained and served DC IMM. Copy on chart. CM called [facility]. Was told patient revocated Hospice yesterday. DCP REVIEW SUMMARY ANTICIPATED D/C DATE: 08/30/2020 EXPECTED LOS : 2 CASE STATUS: DCP Initiated INITIAL REVIEW: 08/29/2020 INITIAL REVIEWER: Juju Novak FINAL DISCHARGE DISPOSITION: : FINAL REVIEWER: FINAL REVIEW DATE: DCP Focus Questions & Answers DCP Screen QUESTION: ANSWER High Risk Factors: : High risk meds DCP Evaluation QUESTION: ANSWER Patient and/or caregiver agree upon recommended discharge plan? : Yes Family / Caregiver's ability to cope with chronic illness: : a. Adequate (ability to meet patient's medical needs, ensures patient attends medical appts.) Patient's current cognitive status: : *Oriented to person, place, situation, time and present Patient's ability to cope with chronic illness : a. Adequate (0-3 ED visits in 6 mos., adequate financial resources, attends scheduled appts.) Does the patient have the ability to pay for or attain post discharge needs / services? : Yes Functional screen assessment: : Unable to manage ADLs without immediate ongoing assistance Physical Status: : Partial care dependence Equipment needed for post hospitalization: : None Is there a likelihood that the patient will require additional services to return to the preadmission environment? : Yes Living Arrangements: : Home Alone with Support Partial Dependence, assistance required for: : Dressing Partial Dependence, assistance required for: : Bathing Results of this evaluation have been discussed with: : Patient Patient with capacity for self-care or can be cared for in same environment as prior to hospitalization? : No Baseline cognitive status: : *Oriented to person, place, situation, time and present Physical environment modification needed / anticipated for discharge: : No Preadmission facility can/cannot provide post hospital level of care needs: : Cannot - at higher level of care than preadmission Medication Management: : Patient states can afford medications Planned post hospital services available for patient? : Yes Pharmacy name(s): : [facility] Planned post hospital services covered by insurance plan? : Yes Does Patient have transportation to get home and to follow-up medical appointments when discharged from the hospital? : Yes Would patient like to participate in any Care Coordination programs (if applicable): : Not applicable Does the patient have electricity at home? : Yes Does the patient have running water in their house? : Yes Equipment in use: : Shower Chair Equipment in use: : Hospital Bed Equipment in use: : Home Oxygen with Nasal Cannula Equipment in use: : Cane - Quad Equipment in use: : Bedside Commode Equipment agency name and contact information: : [facility] Mental health screen: : No mental health history Psychosocial status: : Independent adult (65+) Abuse/Neglect: : None Resources / Services in place: : Hospice - home Contact information for resources in use: : [facility], [facility] Re-evaluation QUESTION: ANSWER Would patient like to participate in any Care Coordination programs (if applicable): : Not applicable PATIENT: AMANDO MURPHY ENCOUNTER: [id number] MEDICAL RECORD#: [id number] ADMISSION DATE: 08/28/2020 DISCHARGE DATE: 08/30/2020 ATTENDING MD: TANYA: AGE: 80 MARITAL STATUS: D DC PLAN ID: [id number] FACILITY: [facility] PRINTED ON: 08/30/20 11:20 CT All edits/amendments must be made on the electronic document DICTATION DATE: 08/30/201119 TRAFFIC ROUTING ENGINEER: FAYE 08/30/20 112 RPT#: [id number] DC DATE:08/30/20 STATUS: DIS IN [facility] [address] [place] [address] END OF REPORT
== END 2020-08-30 11:05 | DRG 481 ==
LOC: D.ER 23:24 → D.M3 08-28 00:31
PROVIDERS: Family Medicine; Orthopaedic Surgery; ADMIT Family Medicine; ATTEND Family Medicine
PROC: 0QS634Z Reposition Right Upper Femur with Internal Fixation Device, Percutaneous Approach (ICD-10-PCS; principal; 2020-08-28 14:15)
DX: S72.141A Displaced intertrochanteric fracture of right femur, initial encounter for closed fracture (principal); D62 Acute posthemorrhagic anemia; W18.30XA Fall on same level, unspecified, initial encounter; I10 Essential (primary) hypertension; I25.10 Atherosclerotic heart disease of native coronary artery without angina pectoris; E78.5 Hyperlipidemia, unspecified

== ENCOUNTER 2020-08-30 11:15 | Inpatient (IN) | payer MEDICARE, OTHER ==
[~2020-08-30] VITALS: Ht 170.2 cm; Wt 45.4 kg
--- NOTE | ~2020-08-30 | RHP ---
PATIENT: AMANDO MURPHY MEDICAL RECORD: [id number] ACCOUNT: [id number] LOCATION:[facility] [id number] : 40 ADMISSION DATE: 08/30/20 REHABILITATION HISTORY AND PHYSICAL EXAMINATION POST ADMISSION PHYSICIAN EXAMINATION ADMITTING DIAGNOSIS: Hip fracture on the right. HISTORY OF PRESENT ILLNESS: The patient is an 80-year-old female patient presented to the ED on 08/28 with complaints of right hip pain and being unable to ambulate after tripping and falling at home. She denies any loss of consciousness. Apparently, she reports that she was walking in the dark, had not turned on the lights, and tripped. The patient had a comminuted intertrochanteric fracture of the right femur and lesser trochanteric area was rotated in various manner and displaced medially. X-ray also showed severe osteoarthritis of the right hip. Ortho was consulted. She underwent a trochanteric nailing on 08/[address] Jimenez. The patient was admitted to the hospital with a closed intertrochanteric fracture - fall from standing, hypertension, dyslipidemia, chronic constipation, and she does have a history of chronic normocytic anemia. The patient was noted to have an H&H of 6.2 and 18.8 and has been transfused from this. She will require close monitoring of her CBC due to anemia. She is 7 and 21 today, so she will need another 2 units of packed red blood cells. Physical therapy reports that she is moderate assist for lower extremity and trunk support, scoot to the edge of the bed, sit to stand from the edge of the bed with min assist. She ambulates about 75 feet with a rolling walker with mod assist. The patient has very slow jemma. She has decreased step length and foot clearance. She will need to be directed on these things to keep her from falling again. She will require acute rehab to improve her strength, coordination, gait, stability, endurance. She also needs some strength in her upper extremities. We will get OT to work with her there if she is going to return back to her prior level of functioning. Comorbidities include severe osteoarthritis, chronic constipation, dyslipidemia and pain. PAST MEDICAL HISTORY: Significant for hypertension, coronary artery disease. She has got a history of chronic constipation, anxiety and depression. PAST SURGICAL HISTORY: As above. ALLERGIES: PROTONIX, LISINOPRIL, OXYBUTYNIN, BACITRACIN, LOSARTAN, NICKEL, POLYSPORINS, AND MACRODANTIN. CURRENT MEDICATIONS: Include an estradiol vaginal cream she uses twice weekly, acetaminophen 500 mg as needed. She is on Flomax 0.4 mg daily, Prilosec 40 mg daily. She is on Flonase nasal spray daily, citalopram 20 mg daily, vitamin D 1000 units daily. She is on FiberCon daily. She is on Linzess 145 mcg daily, Seroquel 12.5 mg at bedtime, Colace 100 mg b.i.d., aspirin 81 mg b.i.d., lactulose 30 mg t.i.d. She is on Tums chewable. She is on Tramadol 50 mg q.4 hours p.r.n., promethazine p.r.n., MiraLax p.r.n., Zofran p.r.n., naloxone p.r.n. She is on morphine for severe pain, Imodium 2 mg q.6 hours p.r.n., North Hero 5/325 one tab q.4-6 hours p.r.n. She is on hydralazine for elevated blood pressure p.r.n., Colace 100 mg b.i.d., diazepam 5 mg b.i.d. p.r.n., baclofen p.r.n., and acetaminophen once again as needed. HABITS: No tobacco use. HISTORY AND PHYSICAL [id number] AMANDO MURPHY FAMILY HISTORY: Noncontributory. SOCIAL HISTORY: The patient hopes to return back home and get back to her prior level of functioning. REVIEW OF SYSTEMS: GENERAL: She does complain of weakness and fatigue. HEENT: Denies cold, cough or congestion. CARDIOVASCULAR: Denies any chest pain. OBJECTIVE: VITAL SIGNS: Stable, afebrile. GENERAL: A thin elderly female in no acute distress, alert upon exam. HEENT: Normocephalic and atraumatic. Mucosa moist. NECK: Supple. No adenopathy. LUNGS: Clear in the upper harris. No wheezing or rales. HEART: Regular rate and rhythm. No murmurs, rubs or gallops. ABDOMEN: Soft, benign, nondistended. Positive bowel sounds times 4. EXTREMITIES: No clubbing, cyanosis. Postoperative area looks pretty good. NEUROLOGIC: She does have some difficulty with truncal movements. LABORATORY DATA: Her white count is 6.2, H&H of 7.2 and 21.4 and platelet count is noted to be 117. Her sodium is 131, potassium 3.8, BUN and creatinine of 7 and 0.4 and blood sugar is noted to be 104. ASSESSMENT: This is an 80-year-old female patient admitted to the rehab with a working diagnosis of right intertrochanteric hip fracture status post trochanteric nailing. The patient has potential to make improvements. We instituted the following multidisciplinary therapies including, but not limited to physical, occupational, respiratory, speech, nutritional services, prosthetics and orthotics. Given her complex medical condition and risks for more complications, rehabilitation services cannot be provided at a low level of care such as care home facility. PLAN: Admit to [facility] for inpatient therapy to include the following disciplines: A. Physical therapy to improve gait, all transfer skills and bed mobility to a modified independent level. B. Occupational therapy to improve activities of daily living. C. Case management to help with discharge planning and placement options. D. Nutrition to assist with nutritional needs. E. Rehabilitation nursing to assist in monitoring the patient's underlying medical conditions and to assist with any type of bowel or bladder management. 1. The patient's current medication and medical care will be continued. 2. The patient will be placed on standard fall precautions. 3. The patient's estimated length of stay approximately 7-10 days. I am going to go ahead and transfuse her today, watch her blood counts closely. May see her again in the morning. TRANSINT:[id number] Voice Confirmation ID: [id number] DOCUMENT ID: [id number] 09/13/2020 huong [facility]KEON HISTORY AND PHYSICAL [id number] AMANDO MURPHY notes whether there has been none or any medical/functional change since admission: - No change since preadmission screen. LINDA attests patient continues to be appropriate for IRF: - Continues to be appropriate. SHEYLA CHOPRA MD CC: [id number] DICTATION DATE: 08/31/201853 PULP DRIER: 08/31/202123 DIS IN 09/12/20 [facility] [address] [place] [address]
[~2020-08-30 11:15] MED LIST changes: +ACETAMINOPHEN500 M1 PO; +HYDRALAZINE20 MG/ML IV; +Morphine Sulfate IV; +Narcan INJ IV
--- NOTE | 2020-08-30 11:43 | NUR ---
SHE IS ALERT, LITTLE CONFUSION AT TIMES. SHE HAS 2 DRESSING TO THE RIGHT LEG, ONE ABOVE THE RIGHT KNEE AND ANOTHER ON THE UPPER THIGH AREA. SHE IS WEARING TELE, SR WITH A RATE OF 77 PER [employer]WR[employer] HELPER. HER LEFT BUTTOCKS AND COCCYX IS RED WITH THE SKIN INTACT, APPLIED A MEPILEX. SHE IS WEARING 2 LITERS NC. THE CALL LIGHT IS WITH REACH.
[2020-08-30] MEDS ORDERED: HYDROCODON-ACE1 EAC7 PO (11:50)
[2020-08-30 12:22] VITALS: BP 121/42
[2020-08-30] MEDS ORDERED: ULTRAM50 MG PO (12:50)
--- NOTE | 2020-08-30 15:00 | NUR ---
PATIENT ADMITTS TO [facility] FROM ACUTE FLOOR. HER PCP IS DR. HOWARD. SHE IS A CLIENT OF [facility]. DME AT HOME IS A SHOWER CHAIR, HOSPITAL BED, O2, CANE AND A BEDSIDE COMMODE. [facility] # [phone]. WILL CONTINUE TO FOLLOW WITH PATIENT.
--- NOTE | 2020-08-30 19:22 | NUR ---
AWAKE AND ALERT. RESTING IN BED WITH RESPIRATIONS UNLABORED. LEFT ARM SALINE LOCK INTACT. PUGA PATENT. TELEMETRY ON. NO ACUTE DISTRESS NOTED. CALL LIGHT IN REACH.
[2020-08-30 19:34] VITALS: BP 126/49
--- NOTE | 2020-08-31 04:30 | NUR ---
WOKE UP AND ASK TO GO TO BATHROOM. I ASK HER IF SHE NEEDED TO HAVE A BM. SHE SAID NO. I REMINDED HER SHE HAD A CATHETER. SHE ASK "WERE AM I?" I REORIENTED PATIENT TO PERSON PLACE AND TIME. SHE REMEMERED AFTER I TOLD HER. VIVIEN HERR. UA COLLECTED AND SENT TO LAB. RESTING NOW WITH NO DISTRESS NOTED.
[2020-08-31 05:33] LABS: BILIRUBIN NEGATIVE (NEGATIVE); KETONE NEGATIVE (NEGATIVE); NITRITE NEGATIVE (NEGATIVE); UROBILINOGEN NORMAL mg/dL (< 2)
[2020-08-31 07:00] VITALS: BP 126/50
[2020-08-31 07:01] LABS: BASOPHILS 0.3 % (0-2); EOSINOPHILS 1.3 % (0-7); HEMATOCRIT 21.4 % (36.0-48.0); IMMATURE GRANULOCYTES 0.2 % (0-5); LYMPHOCYTE ABS# 0.73 10x3/uL (1.18-3.74); LYMPHOCYTES 11.8 % (15-50); MCH 31.2 pg (26.0-34.0); MCHC 33.6 g/dL (31.0-37.0); MCV 92.6 fL (80.0-100.0); MEAN PLATELET VOLUME 9.4 fL (7.4-10.4); NEUTROPHIL ABS# 4.69 10x3/uL (1.56-6.13); NEUTROPHILS 75.4 % (40-80); PLATELET COUNT 117 10x3/uL (130-400); RBC 2.31 10x6/uL (4.00-5.40); RDW 13.7 % (11.5-14.5); WBC 6.2 10x3/uL (4.8-10.8)
[2020-08-31 07:15] LABS: CALC OSMOLALITY 260 mosm/kg (275-300); CALCIUM 8.2 mg/dL (8.5-10.1); CARBON DIOXIDE 27.2 mmol/L (21.0-32.0); CHLORIDE - SERUM 99 mmol/L (98-107); CREATININE - SERUM 0.4 mg/dL (0.6-1.3); GLUCOSE 104 mg/dL (74-106); POTASSIUM - SERUM 3.8 mmol/L (3.5-5.1); SODIUM 131 mmol/L (136-145); UREA NITROGEN 7 mg/dL (7-18); eGFR NON AFRICAN AMERICAN > 90 mL/min (90-120)
[2020-08-31 07:25] LABS: HEMOGLOBIN 7.2 g/dL (12-16)
--- NOTE | 2020-08-31 08:00 | NUR ---
SHIFT ASSMT COMPLETED.CL IN REACH.BREAKFAST GIVEN.
[2020-08-31 11:24] VITALS: Ht 170.2 cm; Wt 45.4 kg
--- NOTE | 2020-08-31 12:00 | NUR ---
IV INFILTRATED.CATH DC'D WITH TIP INTACT
[2020-08-31 19:25] VITALS: BP 113/43
--- NOTE | 2020-08-31 19:31 | NUR ---
AWAKE AND ALERT. RESTING IN BED WITH RESPIRATIONS UNLABORED. SALINE LOCK INTACT TO RIGHT AC. NEW ORDERS RECIEVED FOR TYPE AND CROSSMATCH AND TRANSFUSE 2 UNITS PRBC. AWAITING TYPE AND CROSSMATCH. INFORMED PATIENT OF NEW ORDER. VOICES UNDERSTANDING. CALL LIGHT IN REACH.
--- NOTE | 2020-09-01 00:38 | NUR ---
PREMED MEDICATIONS GIVEN ORDERED. FIRST UNIT OF PRBC STARTED. SIGNS AND SYMPTOMS OF ADVERSE REACTION REVIEWED WITH PATIENT. VOICES UNDERSTANDING.
--- NOTE | 2020-09-01 03:45 | NUR ---
FIRST UNIT OF PRBC COMPLETE AND SECOND UNIT STARTED. NO SIGNS OF ADVERSE REACTION. RESTING IN BED WITH NO DISTRESS NOTED.
--- NOTE | 2020-09-01 06:15 | NUR ---
SECOND UNIT OF PRBC COMPLETE WITH NO SIGNS OF ADVERSE REACTION. IV SITE LEAKING SO IV CATH DC'D AND BANDAGE APPLIED. TELEMETRY DC'D. RESTING NOW WITH NO ACUTE DISTRESS NOTED.
[2020-09-01 08:00] VITALS: BP 153/60
[2020-09-01 19:00] VITALS: BP 115/44
--- NOTE | 2020-09-01 19:43 | NUR ---
AWAKE AND ALERT. RESTING IN BED WITH RESIRATIONS UNLABORED. NO ACUTE DISTRESS NOTED. PUGA PATENT. TURNED AND REPOSITIONED FOR COMFORT. CALL LIGHT IN REACH.
--- NOTE | 2020-09-02 06:23 | NUR ---
QUIET HOURS. ASSISTED TO BATHROOM AND BACK TO BED. PUGA PATENT. O2/2L NASAL CANNULA BE PLACED ON PER HER REQUEST. NO ACUTE DISTRESS NOTED. CALL LIGHT IN REACH.
[2020-09-02 08:30] VITALS: BP 138/60
[2020-09-02 09:00] LABS: BASOPHILS 0.2 % (0-2); EOSINOPHILS 2.7 % (0-7); HEMATOCRIT 30.1 % (36.0-48.0); HEMOGLOBIN 10.1 g/dL (12-16); IMMATURE GRANULOCYTES 0.3 % (0-5); LYMPHOCYTE ABS# 0.66 10x3/uL (1.18-3.74); LYMPHOCYTES 10.6 % (15-50); MCH 31.1 pg (26.0-34.0); MCHC 33.6 g/dL (31.0-37.0); MCV 92.6 fL (80.0-100.0); MEAN PLATELET VOLUME 9.5 fL (7.4-10.4); MONOCYTES 8.9 % (2-11); NEUTROPHIL ABS# 4.79 10x3/uL (1.56-6.13); NEUTROPHILS 77.3 % (40-80); RBC 3.25 10x6/uL (4.00-5.40); RDW 13.7 % (11.5-14.5); WBC 6.2 10x3/uL (4.8-10.8)
[2020-09-02 09:02] LABS: PLATELET COUNT 161 10x3/uL (130-400)
[2020-09-02 09:23] LABS: CALC OSMOLALITY 272 mosm/kg (275-300); CALCIUM 8.4 mg/dL (8.5-10.1); CARBON DIOXIDE 27.3 mmol/L (21.0-32.0); CHLORIDE - SERUM 102 mmol/L (98-107); CREATININE - SERUM 0.6 mg/dL (0.6-1.3); GLUCOSE 139 mg/dL (74-106); POTASSIUM - SERUM 3.7 mmol/L (3.5-5.1); SODIUM 136 mmol/L (136-145); UREA NITROGEN 9 mg/dL (7-18); eGFR NON AFRICAN AMERICAN > 90 mL/min (90-120)
--- NOTE | 2020-09-02 13:31 | NUR ---
SEEMS TO BE OBSESSED WITH BOWELS....EVERY CONVERSATION INCLUDES HER BOWELS. SHE ASKS FREQUENTLY FOR SOMETHING FOR HER BOWELS EVEN THOUGH SHE HAD BM THIS AM AND DENIES CONSTIPATION AT PRESENT. SHE IS GROSSLY WEAK. RT HIP HAS X3 INCISIONS FROM SURGERY. F/C DRAINING CLOUDY URINE.
--- NOTE | 2020-09-02 18:51 | NUR ---
BEDSIDE REPORT COMPLETE. RECEIVED PT LYING IN BED. ALERT AND ORIENTED X4. DENIES ANY NEEDS OR PAIN. PUGA CATH PATENT, NO KINKS NOTED. CONTINUES ON O2/2L VIA NC. CALL LIGHT AND WATER WITHIN REACH. LUKAS ALARM ON. CPOC
[2020-09-02 21:25] VITALS: BP 121/59
--- NOTE | 2020-09-03 00:43 | NUR ---
PT LYING IN BED ON LEFT SIDE EYES CLOSED RESTING. RR EVEN AND UNLABORED. CONTINUES ON O2/2L VIA NC. LUKAS ALARM ON
--- NOTE | 2020-09-03 04:05 | NUR ---
PT LYING IN BED ON LEFT SIDE EYES CLOSED RESTING. RR EVEN AND UNLABORED. LUKAS ALARM ON
[2020-09-03 07:46] VITALS: BP 137/66
--- NOTE | 2020-09-03 12:15 | NUR ---
Nutrition Follow-up: Diet: Regular PO intake: ~50% average x last 6 meals Last BM: 09/03/20 Wt: 100# (08/31/20) Meds noted: linzess, lactulose Labs noted: Glu 139(H) Recommend continue current diet. Will continue to honor food preferences. Will add oral nutrition supplements. RD will follow-up 09/06/20.
--- NOTE | 2020-09-03 18:53 | NUR ---
BEDSIDE REPORT COMPLETE. RECEIVED PT LYING IN BED ON LEFT SIDE. ALERT AND ORIENTED X3. DENIES ANY NEEDS. C/O RIGHT HIP DISCOMFORT. PAIN MEDICATION WITH HS MEDS. PT ALSO C/O CONSTIPATION ALTHOUGH IN REPORT PT DID HAVE A MED BM YESTERDAY, PT STATES SHE USUALLY HAS MORE THAN ONE BM A DAY. PT IS ON SEVERAL MEDICATIONS TO ASSIST WITH CONSTIPATION. PUGA CATH PATENT FREE FROM KINKS. RIGHT HIP DRESSINGS INTACT X3. RUPTURED BLISTERS AT PROXIMAL END DRY, NO DRAINAGE NOTED. CONTINUES ON O2/2L VIA NC. NO DISTRESS NOTED. CALL LIGHT AND WATER WITHIN REACH. FALL PRECAUTIONS IN PLACE. LUKAS ALARM ON. CPOC
[2020-09-03 20:28] VITALS: BP 121/55
--- NOTE | 2020-09-04 02:14 | NUR ---
PT LYING IN BED ON LEFT SIDE EYES CLOSED RESTING. RR EVEN AND UNLABORED. LUKAS ALARM ON
--- NOTE | 2020-09-04 06:26 | NUR ---
PT LYING IN BED ON LEFT SIDE EYES CLOSED RESTING. RR EVEN AND UNLABORED. LUKAS ALARM ON.
[2020-09-04 07:38] VITALS: BP 154/59
[2020-09-04 08:00] LABS: BASOPHILS 0.9 % (0-2); EOSINOPHILS 5.9 % (0-7); HEMATOCRIT 32.1 % (36.0-48.0); HEMOGLOBIN 10.4 g/dL (12-16); IMMATURE GRANULOCYTES 0.4 % (0-5); LYMPHOCYTE ABS# 0.92 10x3/uL (1.18-3.74); LYMPHOCYTES 16.3 % (15-50); MCHC 32.4 g/dL (31.0-37.0); MEAN PLATELET VOLUME 9.1 fL (7.4-10.4); MONOCYTES 8.5 % (2-11); NEUTROPHIL ABS# 3.84 10x3/uL (1.56-6.13); PLATELET COUNT 193 10x3/uL (130-400); RBC 3.35 10x6/uL (4.00-5.40); RDW 13.4 % (11.5-14.5); WBC 5.6 10x3/uL (4.8-10.8)
--- NOTE | 2020-09-04 08:00 | NUR ---
SHIFT ASSMT COMPLETED.
[2020-09-04 08:03] LABS: MCV 95.8 fL (80.0-100.0)
[2020-09-04 08:24] LABS: CALC OSMOLALITY 271 mosm/kg (275-300); CALCIUM 8.7 mg/dL (8.5-10.1); CARBON DIOXIDE 27.5 mmol/L (21.0-32.0); CHLORIDE - SERUM 101 mmol/L (98-107); GLUCOSE 95 mg/dL (74-106); SODIUM 137 mmol/L (136-145); UREA NITROGEN 8 mg/dL (7-18)
[2020-09-04 08:25] LABS: CREATININE - SERUM 0.4 mg/dL (0.6-1.3); eGFR NON AFRICAN AMERICAN > 90 mL/min (90-120)
[2020-09-04 08:26] LABS: POTASSIUM - SERUM 4.5 mmol/L (3.5-5.1)
--- NOTE | 2020-09-04 16:13 | NUR ---
CARE TEAM MEETING: PATIENT IS PROGRESSING IN THERAPY. TENATIVE DC DATE IS 09/13/20. WILL CONTINUE TO FOLLOW WITH PATIENT . WILL BE RA AT NEXT MEETING.
--- NOTE | 2020-09-04 19:55 | NUR ---
AWAKE AND ALERT. RESTING IN BED WITH RESPIRATIONS UNLABORED. NO DISTRESS NOTED. CALL LIGHT IN REACH.
[2020-09-04 20:30] VITALS: BP 150/60
--- NOTE | 2020-09-05 05:41 | NUR ---
QUIET HOURS. NO ACUTE CHANGES IN CONDITION THIS SHIFT. PUGA PATENT. RESTING IN BED WITH NO DISTRESS NOTED.
[2020-09-05 08:14] VITALS: BP 146/61
--- NOTE | 2020-09-05 19:33 | NUR ---
AWAKE AND ALERT. RESTING IN BED WITH RESPIRATIONS UNLABORED. PUGA PATENT. NO ACUTE DISTRESS NOTED. CALL LIGHT IN REACH.
[2020-09-05 20:36] VITALS: BP 112/44
--- NOTE | 2020-09-06 05:35 | NUR ---
QUIET HOURS. NO ACUTE CHANGES IN CONDITION THIS SHIFT. RESTING IN BED WITH NO DISTRESS NOTED. PUGA CATHETER IN PLACE.
[2020-09-06 08:00] LABS: BASOPHILS 0.6 % (0-2); EOSINOPHILS 6.6 % (0-7); HEMATOCRIT 30.9 % (36.0-48.0); IMMATURE GRANULOCYTES 0.6 % (0-5); LYMPHOCYTE ABS# 0.83 10x3/uL (1.18-3.74); LYMPHOCYTES 15.5 % (15-50); MCH 30.9 pg (26.0-34.0); MCHC 32.4 g/dL (31.0-37.0); MCV 95.4 fL (80.0-100.0); MEAN PLATELET VOLUME 9.1 fL (7.4-10.4); MONOCYTES 10.7 % (2-11); NEUTROPHIL ABS# 3.53 10x3/uL (1.56-6.13); RBC 3.24 10x6/uL (4.00-5.40); RDW 13.3 % (11.5-14.5); WBC 5.3 10x3/uL (4.8-10.8)
[2020-09-06 08:04] LABS: PLATELET COUNT 251 10x3/uL (130-400)
[2020-09-06 08:07] LABS: CALC OSMOLALITY 265 mosm/kg (275-300); CALCIUM 8.4 mg/dL (8.5-10.1); CARBON DIOXIDE 31.1 mmol/L (21.0-32.0); CHLORIDE - SERUM 99 mmol/L (98-107); CREATININE - SERUM 0.4 mg/dL (0.6-1.3); GLUCOSE 91 mg/dL (74-106); POTASSIUM - SERUM 3.9 mmol/L (3.5-5.1); SODIUM 133 mmol/L (136-145); UREA NITROGEN 13 mg/dL (7-18); eGFR NON AFRICAN AMERICAN > 90 mL/min (90-120)
[2020-09-06 08:11] VITALS: BP 137/62
--- NOTE | 2020-09-06 14:36 | NUR ---
LAYING IN BED RESTING AND WATCHING TV. C/O PAIN TO ABD, RECTUM, BACK, RT HIP. RT HIP HAS X3 BANDAGES TO X3 INCISIONS. PEDAL PULSES PRESENT X3. MIN TO SBA TO TRANSFER FROM BED TO WC. WEARS OXYGEN PRN 2LNC. MEPILIX TO COCCYX TO PREVENT SHEARING. F/C PATENT WITH CLOUDY URINE. CALL LIGHT IN REACH. BED IN LOWEST POSITION, SIDE RAILS UP X2.
--- NOTE | 2020-09-06 16:07 | NUR ---
Nutrition Re-Assessment: Patient was asleep at time of RD visit. Diet: Regular + Ensure TID PO intake: 50% x last 9 meals recorded in EMR. Ate 100% of breakfast this AM. She appears to be drinking some Ensure. Last BM: 09/05/20 Wt: 100# (08/31/20) Meds and labs reviewed Estimated nutrition needs: [id number] jo ann (30-35 Act), 45-55gms protein (1-1.2), 1375-1600mL fluid (or per MD) Nutrition diagnosis of severe malnutrition remains unchanged. Nutrition goals: -PO intake >/=75% meals -Meet fluid needs -Appropriate weight gain [facility] Recommendations/Interventions: -Continue current diet. Will continue to honor food preferences. -Continue oral nutrition supplements. -RD will follow-up 09/10/20.
--- NOTE | 2020-09-06 18:58 | NUR ---
BEDSIDE REPORT COMPLETE. RECEIVED PT LYING IN BED ON RIGHT SIDE. ALERT AND ORIENTED X3. C/O ABDOMINAL BURNING. CONTINUES ON O2/2L VIA NC. F/C PATENT FREE FROM KINKS. RONALD URINE NOTED IN COLLECTION BAG. CALL LIGHT AND WATER WITHIN REACH. LUKAS ALARM ON. CPOC
[2020-09-06 21:20] VITALS: BP 139/54
--- NOTE | 2020-09-06 21:20 | NUR ---
REMOVED OLD DRESSING TO RIGHT HIP X3. SCANT AMOUNT OF DARK BLOODY DRAINAGE NOTED ON EACH DRESSING. STERI STRIPS INTACT TO PROXIMAL AND MIDDLE INCISION, DISTAL INCISION DERMABOND CLOSURE INTACT. NO REDNESS OR WARMTH NOTED. CLEANSED ALL INCISIONS WITH WOUND CLEANSER, PAT DRY 4X4, SWABBED WITH BETADINE, COVERED WITH MEPILEX DRESSINGS X3. DATE, TIMED, INITIALED EACH DRESSING. PT TOLERATED WELL. REPOSITIONED PT TO LEFT SIDE USING PILLOWS FOR SUPPORT. PT DENIES ANY OTHER NEEDS OR PAIN. CALL LIGHT WITHIN REACH. LUKAS ALARM ON
--- NOTE | 2020-09-07 03:17 | NUR ---
PT LYING IN BED ON RIGHT SIDE EYES CLOSED RESTING. REPOSITIONED TO LEFT SIDE. DENIES ANY NEEDS OR PAIN. NO DISTRESS NOTED. CALL LIGHT WITHIN REACH. LUKAS ALARM ON.
--- NOTE | 2020-09-07 05:37 | NUR ---
PT LYING IN BED ON LEFT SIDE AWAKE. OFFERED REPOSITIONING TO RIGHT SIDE PT REFUSED TO SWITCH SIDES. EDUCATED PT ON IMPORTANCE OF TURNING TO PREVENT SKIN BREAKDOWN. PT VERBALIZED UNDERSTANDING. PUGA CATH EMPTIED 1200ML YELLOW URINE NO ACUTE CHANGES IN CONDITION THIS SHIFT. CALL LIGHT AND WATER WITHIN REACH. LUKAS ALARM ON
[2020-09-07 08:00] VITALS: BP 143/58
--- NOTE | 2020-09-07 14:19 | NUR ---
HAS BEEN CONSTANTLY ON HER CALL LIGHT TODAY. CALLING STAFF IN HER ROOM FOR SMALL TASKS SHE CAN DO FOR HERSELF. EX...SHE CALLED STAFF IN HER ROOM TO BRING HER A PIECE OF PAPER TO WRITE ON. STAFF LEFT ROOM, OBTAINED PAPER AND BROUGHT BACK TO PT. THE PT THEN SAID PAPER WAS TOO SMALL AND SENT STAFF FOR LARGER PIECE OF PAPER. THEN PT ONLY WROTE ON SMALL PORTION OF IT....SHE CONSTANTLY C/O ABD PAIN AND STATES "MY BUTTHOLE HURTS". SHE IS ON PAIN MEDS AND ASKS FOR THEM OFTEN. SHE REMAINS OBSESSED WITH HER BOWELS.
--- NOTE | 2020-09-07 18:50 | NUR ---
BEDSIDE REPORT COMPLETE. RECEIVED PT SITTING UP IN BED ON LEFT SIDE. ALERT AND ORIENTED X4. DENIES ANY NEEDS OR PAIN. PUGA CATH PATENT FREE FROM KINKS. COLLECTION BAG EMPTY. CONTINUES ON O2/2L VIA NC. NO DISTRESS NOTED. RIGHT HIP DRESSING INTACT. CALL LIGHT AND WATER WITHIN REACH. LUKAS ALARM ON. CPOC
[2020-09-07 19:00] VITALS: BP 126/46
--- NOTE | 2020-09-08 01:46 | NUR ---
PT LYING IN BED ON LEFT SIDE EYES CLOSED RESTING. REPOSITIONED TO RIGHT SIDE USING PILLOWS FOR SUPPORT. PUGA CATH PATENT FREE FROM KINKS. CALL LIGHT WITHIN REACH. LUKAS ALARM ON
--- NOTE | 2020-09-08 05:14 | NUR ---
PT LYING IN BED EYES CLOSED RESTING. EASILY AROUSED WITH STIMULI. NO DISTRESS NOTED. 1200ML YELLOW URINE EMPTIED FROM PUGA. NO ACUTE CHANGES IN CONDITION THIS SHIFT. CALL LIGHT AND WATER WITHIN REACH. LUKAS ALARM ON
[2020-09-08 08:00] VITALS: BP 144/49
--- NOTE | 2020-09-08 18:50 | NUR ---
BEDSIDE REPORT COMPLETE. RECEIVED PT LYING IN BED ON LEFT SIDE. ALERT AND ORIENTED X4. C/O ABDOMINAL BURNING CENSATION. CONTINUES ON O2/2L VIA NC. PUGA CATH PATENT FREE FROM KINKS. REPORTED PUGA BAG CHANGED TODAY PER SAROJ KAM. NO NEEDS VOICED. CALL LIGHT AND WATER WITHIN REACH. LUKAS ALARM ON. CPOC
[2020-09-08 19:00] VITALS: BP 135/45
--- NOTE | 2020-09-08 23:56 | NUR ---
PT LYING IN BED ON LEFT SIDE EYES CLOSED RESTING. RR EVEN AND UNLABORED. REPOSITIONED TO RIGHT SIDE EYES CLOSED RESTING. CALL LIGHT WITHIN REACH. LUKAS ALARM ON
--- NOTE | 2020-09-09 04:49 | NUR ---
PT LYING IN BED ON LEFT SIDE AWAKE. REPOSTIONED TO RIGHT SIDE. DENIES ANY NEEDS OR PAIN. NO DISTRESS NOTED. NO ACUTE CHANGES IN CONDITION THIS SHIFT. CALL LIGHT WITHIN REACH. LUKAS ALARM ON
[2020-09-09 07:57] VITALS: BP 131/65
[2020-09-09 08:20] LABS: BASOPHILS 0.9 % (0-2); EOSINOPHILS 3.7 % (0-7); HEMATOCRIT 32.8 % (36.0-48.0); HEMOGLOBIN 10.6 g/dL (12-16); IMMATURE GRANULOCYTES 0.4 % (0-5); LYMPHOCYTE ABS# 1.06 10x3/uL (1.18-3.74); LYMPHOCYTES 19.6 % (15-50); MCH 30.7 pg (26.0-34.0); MCHC 32.3 g/dL (31.0-37.0); MCV 95.1 fL (80.0-100.0); MEAN PLATELET VOLUME 9.2 fL (7.4-10.4); MONOCYTES 5.6 % (2-11); NEUTROPHIL ABS# 3.77 10x3/uL (1.56-6.13); NEUTROPHILS 69.8 % (40-80); RBC 3.45 10x6/uL (4.00-5.40); RDW 13.5 % (11.5-14.5); WBC 5.4 10x3/uL (4.8-10.8)
[2020-09-09 08:22] LABS: PLATELET COUNT 316 10x3/uL (130-400)
[2020-09-09 08:32] LABS: CALC OSMOLALITY 270 mosm/kg (275-300); CALCIUM 9.1 mg/dL (8.5-10.1); CARBON DIOXIDE 28.8 mmol/L (21.0-32.0); CHLORIDE - SERUM 101 mmol/L (98-107); CREATININE - SERUM 0.5 mg/dL (0.6-1.3); GLUCOSE 94 mg/dL (74-106); POTASSIUM - SERUM 3.7 mmol/L (3.5-5.1); SODIUM 136 mmol/L (136-145); UREA NITROGEN 10 mg/dL (7-18); eGFR NON AFRICAN AMERICAN > 90 mL/min (90-120)
--- NOTE | 2020-09-09 12:27 | NUR ---
SITTING UP IN BED FOR LUNCH. 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 INSISTS ON WEARING OXYGEN 2LNC WHEN HER SATS ARE HIGH 90'S ON RA EVEN AFTER WALKING APPX 130 FEET WITH THERAPY. SHE REMAINS OBSESSED WITH BOWELS AND TAKING MEDS ASKING ALMOST EVERY TIME A STAFF MEMBER GOES IN HER ROOM ABOUT SOMETHING FOR HER BOWELS OR IF IT IS TIME FOR MORE MEDS. CALL LIGHT IN REACH
--- NOTE | 2020-09-09 19:41 | NUR ---
AWAKE AND ALERT. RESTING IN BED WITH RESPIRATIONS UNLABORED. NO DISTRESS NOTED. CALL LIGHT IN REACH.
[2020-09-09 19:58] VITALS: BP 126/57
--- NOTE | 2020-09-10 05:28 | NUR ---
QUIET HOURS. NO ACUTE CHANGES IN CONDITION THIS SHIFT. RESTING IN BED WITH NO DISTRESS NOTED. VIVIEN PATENT.
[2020-09-10 07:34] VITALS: BP 143/54
--- NOTE | 2020-09-10 16:16 | NUR ---
Nutrition Follow-up: Diet: Regular + Ensure TID PO intake: 50-75%. She states that her appetite is "back and forth." States that she ate most of her lunch tray today. Last BM: 09/07/20 Wt: 100# (08/31/20) Meds and labs reviewed. Recommend continue current diet, will continue to honor food preferences. Continue oral nutrition supplements. Will provide patient with IBS diet education per patient request. RD will re-assess 09/13/20.
[2020-09-10 19:58] VITALS: BP 129/55
--- NOTE | 2020-09-10 20:00 | NUR ---
AWAKE AND ALERT. RESTING IN BED WITH RESPIRATIONS UNLABORED. NO DISTRESS NOTED. CALL LIGHT IN REACH. VIVIEN PATENT.
--- NOTE | 2020-09-11 04:00 | NUR ---
ASSISTED TO BATHROOM. HAD SMALL BM. WAS UPSET ABOUT HEATING PAD BEING GONE. WARM BLANKET PROVIDED. VIVIEN HERR.
--- NOTE | 2020-09-11 04:58 | NUR ---
RESTING QUIETLY WITH NO DISTRESS NOTED.
[2020-09-11 07:34] LABS: CALC OSMOLALITY 265 mosm/kg (275-300); CALCIUM 8.9 mg/dL (8.5-10.1); CARBON DIOXIDE 27.1 mmol/L (21.0-32.0); CHLORIDE - SERUM 99 mmol/L (98-107); CREATININE - SERUM 0.4 mg/dL (0.6-1.3); GLUCOSE 101 mg/dL (74-106); POTASSIUM - SERUM 3.8 mmol/L (3.5-5.1); SODIUM 133 mmol/L (136-145); eGFR NON AFRICAN AMERICAN > 90 mL/min (90-120)
[2020-09-11 07:35] LABS: BASOPHILS 0.5 % (0-2); EOSINOPHILS 3.2 % (0-7); HEMATOCRIT 31.1 % (36.0-48.0); HEMOGLOBIN 10.1 g/dL (12-16); IMMATURE GRANULOCYTES 0.3 % (0-5); LYMPHOCYTE ABS# 0.93 10x3/uL (1.18-3.74); MCHC 32.5 g/dL (31.0-37.0); MCV 95.4 fL (80.0-100.0); MEAN PLATELET VOLUME 9.4 fL (7.4-10.4); MONOCYTES 7.9 % (2-11); NEUTROPHIL ABS# 4.51 10x3/uL (1.56-6.13); NEUTROPHILS 73.1 % (40-80); PLATELET COUNT 333 10x3/uL (130-400); RBC 3.26 10x6/uL (4.00-5.40); RDW 13.5 % (11.5-14.5); WBC 6.2 10x3/uL (4.8-10.8)
[2020-09-11 07:37] LABS: UREA NITROGEN 13 mg/dL (7-18)
[2020-09-11 07:51] VITALS: BP 148/60
--- NOTE | 2020-09-11 08:00 | NUR ---
SHIFT ASSMT COMPLETED.CL IN REACH.
--- NOTE | 2020-09-11 14:09 | NUR ---
CARE TEAM MEETING: PATIENT IS DOING WELL IN THERAPY. SHE WILL DC HOME 09/12/20 AND WILL RESUME HER CARE WITH [facility]. ORDERS HAVE BEEN FAXED. DR. CARO 09/26/20 @ 10:20. INOCENCIA SIGNED, IMM SERVED AND EXPLAINED, ONE GIVEN TO PATIENT AND ONE FILED IN CHART. WILL CONTINUE TO FOLLOW WITH PATIENT UNTIL DISCHARGED.
--- NOTE | 2020-09-11 16:00 | NUR ---
PLAN TO DC HOME TOMORROW.
--- NOTE | 2020-09-11 19:08 | NUR ---
BEDSIDE REPORT COMPLETE. RECEIVED PT LYING IN BED ON LEFT SIDE. ALERT AND ORIENTED X4. DENIES ANY NEEDS. C/O MILD RIGHT HIP AND ABDOMEN DISCOMFORT. CHRONIC PUGA CATH PATENT AND FREE FROM KINKS. RIGHT HIP DRESSING X3 INTACT. CALL LIGHT AND WATER WITHIN REACH. LUKAS ALARM ON. CPOC
[2020-09-11 21:24] VITALS: BP 136/55
--- NOTE | 2020-09-12 03:30 | NUR ---
PT LYING IN BED ON LEFT SIDE EYES CLOSED RESTING. RR EVEN AND UNLABORED. CONTINUES ON O2/2L VIA NC. CALL LIGHT WITHIN REACH. LUKAS ALARM ON
[2020-09-12 07:42] VITALS: BP 166/66
--- NOTE | 2020-09-12 12:35 | NUR ---
DC HOME WITH ALL BELONGINGS. FRIEND CAME GOT HER. MEDS CALLED INTO HER PHARMACY. REVIEWED MEDS AND DC PLAN.
== END 2020-09-12 12:45 | disposition home health service (06) | DRG 561 ==
LOC: D.REHAB 11:15
PROVIDERS: ADMIT Emergency Medicine; ATTEND Emergency Medicine
DX: S72.001D Fracture of unspecified part of neck of right femur, subsequent encounter for closed fracture with routine healing (principal); W19.XXXD Unspecified fall, subsequent encounter; M19.90 Unspecified osteoarthritis, unspecified site; E78.5 Hyperlipidemia, unspecified; F41.8 Other specified anxiety disorders; I10 Essential (primary) hypertension; I25.10 Atherosclerotic heart disease of native coronary artery without angina pectoris; K59.09 Other constipation; D64.9 Anemia, unspecified; J43.9 Emphysema, unspecified; F32.9 Major depressive disorder, single episode, unspecified